=== PATIENT | female | born 1960 | race Caucasian/White ===

== ENCOUNTER → 2017-12-13 08:53 | Outpatient (CLI) | payer OTHER, SELFPAY ==
--- NOTE | 2017-12-13 08:55 | HPBI_ITS ---
MAMMOGRAPHY - BILATERAL SCREENING REASON FOR EXAM: Female, 57 years old. Routine annual screening examination. PERTINENT HISTORY: Non-contributory. TECHNIQUE: Digital bilateral breast delia (3D mammographic acquisition) in the CC and MLO projections. 2-D mediolateral oblique (MLO) and craniocaudad (CC) views of both breasts were obtained. CAD: Full Field Digital Mammography with Computer Added Detection was performed. COMPARISON: Comparison is made with prior study dated January 14, 2014 and April 16, 2012. FINDINGS: Breast Composition: The breasts are heterogeneously dense, which may obscure small masses. There are no dominant masses or suspicious calcifications. No other significant abnormalities are identified. There has been no significant change since the prior study. HPBI/SCREENING MAMM (CAD), BILAT IMPRESSION: Stable bilateral screening mammogram. Yearly follow-up mammogram recommended. (A) ASSESSMENT CATEGORY: BIRADS Category 1: Negative. A letter regarding these results will be sent to the patient by the facility within 30 days. Approximately 10% of breast cancers are not detected by mammography. A normal mammogram should not delay biopsy of a clinically suspicious abnormality. [id number] Electronically Signed: Julio Cesar Sparrow MD at 11:11 EST Tel [phone], Service support ,
--- NOTE | 2017-12-13 08:57 | HPBD_ITS ---
STUDY: DUAL ENERGY X-RAY ABSORPTIOMETRY / DXA REASON FOR EXAM: Female, 57 years old. The patient is postmenopausal. Loss of height. TECHNIQUE: Bone Mineral Density (BMD) measurements of lumbar spine and bilateral hips were obtained. COMPARISON: Comparison is made with prior study dated April 16, 2012. FINDINGS: Lumbar Spine (L1-L4): g/cm2 (1.021) / T-score (-1.3) / Z-score (-0.2) Findings are suggestive of osteopenia with a moderate fracture risk. Left Femur Total: g/cm2 (0.701) / T-score (-2.4) / Z-score (-1.5) Left Femoral Neck: g/cm2 (0.738) / T-score (-2.2) / Z-score (-0.9) Right Femur Total: g/cm2 (0.665) / T-score (-2.7) / Z-score (-1.8) Right Femoral Neck: g/cm2 (0.685) / T-score (-2.5) / Z-score (-1.3) The T-Scores on the most recent prior examination were: Lumbar Spine (L1-L4): There has been worsening of bone density since the previous examination. Left Femur Total: which represents a worsening of 7.5%. Right Femur Total: which represents a worsening of 7.6%. HPBD/Dexa Bone Density Study (HP) IMPRESSION: The patient is considered osteoporotic as outlined below according to World Mark Organization (WHO) criteria with a high fracture risk. There has been worsening of bone density since the previous examination. Reference Information: The T-score is the number of standard deviations above or below the standard which is normal for young adults at their peak bone mineral density. The World Health Organization (WHO) interprets the T-scores as follows: Above -1 Normal bone density Between -1 and -2.5 Osteopenia Equal to / or below -2.5 Osteoporosis As a practical clinical guideline, osteopenia may be graded as follows: Mild -1 through -1.5 Moderate -1.6 through -2.0 Severe -2.1 through -2.4 The Z-score is the number of standard deviations above or below age-matched controls. A Z-score of less than -1.5 would be considered abnormal. References: 1. NIH Osteoporosis and Related Bone Diseases http://www.osteo.org 2. International Society for Clinical Densitometry http://www.iscd.org 3. National Osteoporosis Foundation http://www.nof.org Electronically Signed: Julio Cesar Sparrow MD at 8:44 EST Tel [phone], Service support ,
== END ==
PROVIDERS: Visit Provider Obstetrics & Gynecology
DX: Z12.31 Encounter for screening mammogram for malignant neoplasm of breast (principal); M94.9 Disorder of cartilage, unspecified; M89.9 Disorder of bone, unspecified; Z78.0 Asymptomatic menopausal state
CPT/HCPCS: 77063; 77067; 77080

== ENCOUNTER → 2017-12-20 10:45 | Outpatient (CLI) | payer OTHER, SELFPAY ==
[2017-12-20 13:47] LABS: Calcium,Total 8.8 mg/dL (8.5-10.1)
[2017-12-21 09:47] LABS: Vitamin D,25 Hydroxy 11.7 ng/mL (29.95-100.01)
== END ==
PROVIDERS: Visit Provider Obstetrics & Gynecology
DX: M85.80 Other specified disorders of bone density and structure, unspecified site (principal); M81.0 Age-related osteoporosis without current pathological fracture
CPT/HCPCS: 36415; 82306; 82310

== ENCOUNTER 2018-02-20 08:52 | Day surgery (SDC) | payer OTHER, SELFPAY ==
[2018-02-20] VITALS (7 sets, daily range): BP systolic 98–143; BP diastolic 62–83; PULSE 54–76; RESP 16–18; TEMP 36.1–36.4; O2SAT 97–100; BMI 24.6
--- NOTE | 2018-02-20 | COLBX_PTH ---
PATIENT: PHILL GAR LOC: EN U#:[id number] AGE/SX: 58/F ROOM: RE02/20/[address]: Dr. Ivis Menjivar MD : 1960 BED: DIS: 02/20/2018 SPEC #: [id number] RECD: 02/20/18 12:25 STATUS: DEIRDRE ROSEN #: [id number] SHARON: 02/20/18 00:[address]: Ivis Menjivar DEPT: SURGICAL PATHOLOGY RECD BY: Neymar Farrar ENTERED: 02/20/18 12:59 SP TYPE: COLON BX OTHR DR: No Primary Care Phys Tissues: A - Cecum, NOS B - Ascending colon C - Sigmoid colon biopsy D - Rectum, NOS Procedures: Surgery Specimen Level IV HEADER OPERATION: Colonoscopy PRE-OP DIAGNOSIS: Screening TISSUE SUBMITTED: A. Cecal polyp biopsy, B. Ascending colon polyp biopsy, C. Distal sigmoid polyp biopsy, D. Rectal polyp biopsy MICROSCOPIC DIAGNOSIS A. Cecal polyp, biopsy: Fragments of tubular adenoma. B. Ascending colon polyp, biopsy: Tubular adenoma. C. Distal sigmoid colon polyp, biopsy: Fragments of colonic mucosa with focal hyperplastic change. D. Rectal polyp, biopsy: Tubular adenoma. AM:cecy 02/21/18 MICROSCOPIC DESCRIPTION Slides are reviewed. GROSS DESCRIPTION A - Received in fixative is one container labeled with the patient's name and designated cecal polyp biopsy. The specimen consists of multiple irregular fragments of light galvan soft tissue that in aggregate measure 1.2 x 0.3 x 0.1 cm. The specimen is totally submitted in one cassette. B - Received in fixative is one container labeled with the patient's name and designated ascending colon biopsy. The specimen consists of two irregular fragments of light galvan soft tissue that in aggregate measure 0.5 x 0.2 x 0.1 cm. The specimen is totally submitted in one cassette. C - Received in fixative is one container labeled with the patient's name and designated distal sigmoid polyp biopsy. The specimen consists of one irregular fragment of light galvan soft tissue that measures 0.3 x 0.3 x 0.1 cm. The specimen is totally submitted in one cassette. D - Received in fixative is one container labeled with the patient's name and designated rectal polyp biopsy. The specimen consists of one irregular fragment of light galvan soft tissue that measures 0.3 x 0.2 x 0.1 cm. The specimen is totally submitted in one cassette. / SJ:cecy 02/20/18 TC:5 CPT: 57507 x4
[2018-02-20 09:31] LABS: Bedside Glucose 111 mg/dL (70-110)
--- NOTE | 2018-02-20 13:59 | PCM.OPRPT ---
Report of Operation Date of Procedure: 02/20/18 Pre-Operative Diagnosis: Screening for colon cancer, history of polyps Post-Operative Diagnosis: Cecal, descending, distal sigmoid, rectal polyps and mild sigmoid diverticulosis Surgery/Procedure Performed:: Colonoscopy with biopsy Type of Anesthesia:: MAC Anesthesiologist: Cristobal Pantoja Specimen's removed: 1. Cecal polyp, 2. Descending colon polyp, 3. Distal sigmoid colon polyp, 4. Rectal polyp Estimated Blood Loss (mL): minimal Description of Procedure: Procedure: Colonoscopy After reviewing the risks benefits, the patient was deemed in satisfactory condition to undergo procedure. After obtaining informed consent, the scope was passed under direct visualization. Throughout the procedure, the patient's blood pressure pulse and position saturations were monitored continuously anesthesia. The colonoscope was introduced through the anus and advanced to the cecum, identified by the appendiceal orifice, IC valve and transillumination. The colonoscopy was performed without difficulty. The patient tolerated procedure well. Quality of bowel prep was good. Findings: The perianal and digital rectal exam were normal. All sessile polyps removed with cold forceps biopsies in the following location cecal, ascending colon, distal sigmoid colon, rectal. Mild sigmoid diverticulosis was noted. The colon (entire examined portion) appeared normal. Retroflexed view of the distal rectum and anal verge was normal and showed no anal or rectal abnormalities Impression: 1. Small sessile polyps in the cecum, ascending colon, distal sigmoid colon, rectum. Removed with biopsy. 2. Mild sigmoid diverticulosis 3. The distal rectal and anal verge were normal on retroflexed view. Recommendations: Repeat colonoscopy in 3-5 years for screening purposes, depending on biopsy results - Complications none
== END 2018-02-20 13:00 | disposition home or self-care (01) ==
LOC: EN 08:54 → AC 08:54
PROVIDERS: Visit Provider Surgery
PROC: 0DJD8ZZ Inspection of Lower Intestinal Tract, Via Natural or Artificial Opening Endoscopic (ICD-10-PCS; CPT 45378; principal; 2018-02-20 09:55)
DX: Z12.11 Encounter for screening for malignant neoplasm of colon (principal); D12.0 Benign neoplasm of cecum; D12.2 Benign neoplasm of ascending colon; K63.5 Polyp of colon; D12.8 Benign neoplasm of rectum; K57.30 Diverticulosis of large intestine without perforation or abscess without bleeding; K58.9 Irritable bowel syndrome, unspecified; E11.9 Type 2 diabetes mellitus without complications; I10 Essential (primary) hypertension; E78.00 Pure hypercholesterolemia, unspecified; F32.9 Major depressive disorder, single episode, unspecified; F41.9 Anxiety disorder, unspecified; Z78.0 Asymptomatic menopausal state; Z79.84 Long term (current) use of oral hypoglycemic drugs; Z79.899 Other long term (current) drug therapy; Z86.010 Personal history of colon polyps; Z87.891 Personal history of nicotine dependence
CPT/HCPCS: 45380; 82962; 88305; J7120

== ENCOUNTER 2018-05-15 13:53 | Emergency (ER) | payer OTHER, SELFPAY ==
[2018-05-15 13:54] VITALS: BP 197/79; PULSE 62; RESP 16; TEMP 36.3; O2SAT 100; BMI 21.8
[2018-05-15 14:37] VITALS: BP 165/82; BP 171/84; BP 176/85; PULSE 64; PULSE 65; PULSE 73
[2018-05-15 14:58] LABS: Bacteria 0 SEEN /hpf (None Seen); Mucous, Urine 0 SEEN /hpf (<or=2+); Red Blood Cells-Urine 0 SEEN /hpf (0-5)
[2018-05-15] MEDS: 0.9% Normal Saline 1,000 ML 1000 ML IV (15:04)
[2018-05-15 15:05] LABS: Absolute Lymphocyte Count 1.22 X10^3/ul (0.83-4.51); Absolute Neutrophil Count 3.1 X10^3/uL (2.0-7.7); Basophil# 0.01 X10^3/uL; Basophil% 0.2 % (0-1); Eosinophil# 0.03 X10^3/uL; Eosinophils% 0.7 % (0-5); Hematocrit 43.9 % (37-47); Hemoglobin 14.8 g/dl (12.0-15.0); Lymphocyte # 1.22 X10^3/ul (4.0); Lymphocyte % 26.9 % (19-41); Mean Corp Hgb Conc 33.7 g/gl (32-36); Mean Corpuscular Hgb 29.1 pg (27.0-32.0); Mean Corpuscular Volume 86.2 fL (81-99); Mean Platelet Vol. 10.5 fl (6.2-12.0); Monocyte% 4.4 % (0-10); Neutrophil # 3.08 X10^3/uL (2.7-7.7); Neutrophil % 67.8 % (47-70); POSITIVE COUNT NO; POSITIVE DIFFERENTIAL NO; POSITIVE MORPHOLOGY NO; Platelet Count 190 K/mm3 (150-450); RBC Distribution Width CV 12.3 % (11.6-14.6); RBC Distribution Width SD 39.2 fl (35.1-43.9); Red Blood Count 5.09 M/mm3 (4.2-5.4); White Blood Count 4.5 K/mm3 (4.4-11.0)
[2018-05-15] MEDS: Ondansetron 4 MG/2 ML Vial IV (15:05)
[2018-05-15 15:18] LABS: Anion Gap 9 (5-15); BUN 8 mg/dL (7-18); BUN/Creat Ratio 10.6 RATIO (10-20); Calcium,Total 9.2 mg/dL (8.5-10.1); Chloride 105 mmol/L (98-107); Creatinine, Serum 0.75 mg/dL (0.55-1.02); EST Glomerular Filtration Rate 83 mL/min (>60); Est Glom Filt Rate - Afr Amer 101 mL/min (>60); Estimated Creatinine Clearance 71.78 ml/min; Glucose 128 mg/dL (74-106); Potassium 3.5 mmol/L (3.5-5.1); Sodium Level 139 mmol/L (136-145)
[2018-05-15 15:21] LABS: Color, Urine Yellow (Yellow); Glucose, Dipstick Normal (Normal); Ketone-Dipstick Negative (Negative); Leukocyte Esterase-Dipstick 25 /ul (Negative); Nitrite-Dipstick Negative (Negative); Occult Blood-Urine 10 /ul (Negative); Protein-Dipstick 30 mg/dl (Negative); Urine Bilirubin Dipstick Negative (Negative); Urine Clarity Clear (Clear); Urine Urobilinogen Normal (Normal)
[2018-05-15 15:24] LABS: Squamous Epithelial Cells - UA 0-5 SEEN /hpf (5-10); White Blood Cells 0-5 SEEN /hpf (0-5)
--- NOTE | 2018-05-15 16:05 | ED.VISSUMM ---
- ER Visit Summary Date of Service: 05/15/18 Chief Complaint: [Generalized weakness and nausea] History of Present Illness: The patient is a 58 F [presents to the emergency department complaint of not feeling well. Patient states that today she has been feeling weak and nauseated. Patient states that she was in a parking lot of [place] when she began feeling very sweaty and diaphoretic. Patient checked her blood sugar and it was 140. Patient felt nauseated. She did not have a syncopal episode. Patient denied any chest pain or shortness of breath. Patient gives history of diarrhea for the last for 5 days. Patient gives history of being on amoxicillin for about a week for left ear infection and sinus infection. Patient did feel dizzy when she was having the event today with the diaphoresis.] Physical Examination: [HEENT-PERRLA, EOMI. Cranial nerves II through XII grossly intact. TMs clear. Mucous membranes moist. No adenopathy. Cardiovascular-regular rate and rhythm without murmur or ectopy Lungs-clear to auscultation, chest wall stable without crepitus or subcu emphysema Abdomen-normoactive bowel sounds, soft, nontender, no rebound or rigidity, no peritoneal signs. Extremities-intact ?4, normal range of motion, normal pulses, atraumatic] Test Results: [Orthostatic vital signs were negative.] EKG showed a normal sinus rhythm with no acute ST segment changes. CBC with differential obtained was normal. Chemistries were normal. Troponin was less than 0.015. Urinalysis was normal. Emergency Department Course and Treatment: [Patient received Zofran and a liter normal same fluid bolus. She continued complaints of nausea therefore was given Phenergan 12.5 mg IV.] Treatment Plan: [This point I suspect patient may have had a vasovagal episode while in the car today. Patient advised use Imodium for her diarrhea. We initially ordered stool sample for enteric pathogens, C. difficile, and ova and parasites however patient unable to produce a sample. Patient will be given a prescription to bring in a stool sample to further evaluate.] Disposition: [Discharged home in stable condition] Impression: [Diarrhea Nausea Vasovagal presyncope] This note was generated with [employer] dictation software. It may contain incorrect words, spelling, and punctuation that were not noted in review of the chart prior to signing ED Disposition - Plan for ED Patient: Chief Complaint: General Illness Referrals: Omar Sierra MD [Primary Care Provider] -
--- NOTE | 2018-05-15 16:08 | EKG12_ITS ---
Test Reason : GEN ILLNESS Blood Pressure : / mmHG Vent. Rate : 058 BPM Atrial Rate : 058 BPM P-R Int : 144 ms QRS Dur : 086 ms QT Int : 448 ms P-R-T Axes : 060 001 073 degrees QTc Int : 439 ms Sinus bradycardia Low voltage QRS (limb leads) Poor R wave progression Nonspecific ST and T wave abnormality Confirmed by ESTRELLITA RODRIGUEZ, JOANNE ([id number]), field map editor RAI BUENO ([id number]) on 05/20/2018 1:43:19 PM Referred By: SUSHMA Confirmed By:JOANNE HARO MD
--- NOTE | 2018-05-15 16:11 | ED.DEP ---
ED Disposition - Plan for ED Patient: Chief Complaint: General Illness Instructions: ED Gastroenteritis Report Pend, ED Near Syncope Vasovagal Prescriptions: Ondansetron [Zofran Odt] 4 mg PO Q8H PRN PRN #10 tab PRN Reason: Nausea Referrals: Oamr Sierra MD [Primary Care Provider] - 3-5 Days
[2018-05-15] MEDS: proMETHazine 25 MG/ML Syringe 12.5 MG IV (16:22)
[2018-05-15 16:24] VITALS: BP 152/79; PULSE 64; RESP 16; O2SAT 97
[2018-05-15 16:26] VITALS: BP 152/79; PULSE 68; RESP 16; O2SAT 97
== END 2018-05-15 16:59 | disposition home or self-care (01) ==
LOC: ED 14:34
PROVIDERS: Emergency Provider Emergency Medicine; Family Provider Family Medicine; PCP Family Medicine
DX: R55 Syncope and collapse (principal); R19.7 Diarrhea, unspecified; R11.0 Nausea; I49.1 Atrial premature depolarization; E11.9 Type 2 diabetes mellitus without complications; Z79.84 Long term (current) use of oral hypoglycemic drugs; Z79.899 Other long term (current) drug therapy
CPT/HCPCS: 80048; 81001; 84484; 85025; 93005; 96361; 96374; 96375; 99285; J7030; A4216; J2405

== ENCOUNTER → 2018-08-19 12:26 | Outpatient (CLI) | payer OTHER, SELFPAY ==
[2018-08-19 14:04] LABS: Erythrocyte Sedimentation Rate 8 mm/hr (0-30)
[2018-08-19 14:12] LABS: Absolute Neutrophil Count 3.7 X10^3/uL (2.0-7.7); Basophil# 0.03 X10^3/uL; Basophil% 0.5 % (0-1); Eosinophil# 0.07 X10^3/uL; Eosinophils% 1.2 % (0-5); Hematocrit 42.1 % (37-47); Hemoglobin 14.1 g/dl (12.0-15.0); Lymphocyte % 29.5 % (19-41); Mean Corp Hgb Conc 33.5 g/gl (32-36); Mean Corpuscular Volume 86.6 fL (81-99); Mean Platelet Vol. 10.7 fl (6.2-12.0); Monocyte# 0.31 X10^3/uL; Monocyte% 5.4 % (0-10); Neutrophil # 3.65 X10^3/uL (2.7-7.7); Neutrophil % 63.2 % (47-70); POSITIVE COUNT NO; POSITIVE DIFFERENTIAL NO; POSITIVE MORPHOLOGY NO; Platelet Count 201 K/mm3 (150-450); RBC Distribution Width CV 12.6 % (11.6-14.6); RBC Distribution Width SD 39.5 fl (35.1-43.9); Red Blood Count 4.86 M/mm3 (4.2-5.4); White Blood Count 5.8 K/mm3 (4.4-11.0)
[2018-08-19 14:22] LABS: ALB/GLOB Ratio 1.2 RATIO (0.9-2.4); AST(SGOT) 18 U/L (15-37); Alanine Aminotransfer ALT/SGPT 30 U/L (13-56); Alkaline Phosphatase 73 U/L (45-117); Anion Gap 7 (5-15); BUN 16 mg/dL (7-18); BUN/Creat Ratio 24.3 RATIO (10-20); CRP < 2.90 mg/L (0.0-3.0); Calcium,Total 8.3 mg/dL (8.5-10.1); Chloride 108 mmol/L (98-107); Creatinine, Serum 0.66 mg/dL (0.55-1.02); EST Glomerular Filtration Rate 97 mL/min (>60); Est Glom Filt Rate - Afr Amer 118 mL/min (>60); Globulin 3.4 g/dL (2.2-4.2); Glucose 88 mg/dL (74-106); Potassium 3.7 mmol/L (3.5-5.1); Protein, Total 7.4 g/dL (6.4-8.2); Sodium Level 139 mmol/L (136-145); Thyroid Stim Hormone (TSH) 2.02 uIU/mL (0.358-3.74)
[2018-08-19 14:40] LABS: Hemoglobin A1c 6.3 % (4.2-6.3)
== END ==
PROVIDERS: Family Provider Family Medicine; PCP Family Medicine; Visit Provider Family Medicine
DX: E11.9 Type 2 diabetes mellitus without complications (principal); I10 Essential (primary) hypertension; R51 Headache
CPT/HCPCS: 36415; 80053; 83036; 84443; 85025; 85652; 86140

== ENCOUNTER → 2019-02-13 15:12 | Outpatient (CLI) | payer OTHER, SELFPAY ==
--- NOTE | 2019-02-13 15:20 | RAD_ITS ---
STUDY: X-RAY CHEST REASON FOR EXAM: Female, 59 years old. Acute thoracic back pain. TECHNIQUE: PA and lateral views of the chest. COMPARISON: Chest CT and radiograph dated April 07, 2016. FINDINGS: There is no new focal consolidation. There is a stable granuloma within the left mid lung. Normal size heart. Normal mediastinum and liz. Normal visualized pulmonary arteries. Normal visualized aortic arch and descending thoracic aorta. There are diffuse degenerative changes of the visualized thoracic spine. Normal visualized ribs, clavicles, and shoulders. There is no demonstrated abnormality of the visualized soft tissue structures of the upper abdomen. RAD/Chest PA and Lateral IMPRESSION: Degenerative changes, as described above. No demonstrated acute cardiopulmonary process. Electronically Signed: Mariel Cowan MD at 16:03 EDT Tel , Service support ,
[2019-02-13 17:52] LABS: Absolute Lymphocyte Count 1.68 X10^3/ul (0.83-4.51); Absolute Neutrophil Count 3.4 X10^3/uL (2.0-7.7); Basophil# 0.02 X10^3/uL; Basophil% 0.4 % (0-1); Eosinophil# 0.06 X10^3/uL; Eosinophils% 1.1 % (0-5); Hematocrit 43.2 % (37-47); Hemoglobin 14.5 g/dl (12.0-15.0); Lymphocyte # 1.68 X10^3/ul (4.0); Lymphocyte % 31.2 % (19-41); Mean Corp Hgb Conc 33.6 g/gl (32-36); Mean Corpuscular Hgb 28.8 pg (27.0-32.0); Mean Corpuscular Volume 85.9 fL (81-99); Mean Platelet Vol. 10.4 fl (6.2-12.0); Monocyte# 0.28 X10^3/uL; Monocyte% 5.2 % (0-10); Neutrophil # 3.35 X10^3/uL (2.7-7.7); Neutrophil % 62.1 % (47-70); Platelet Count 193 K/mm3 (150-450); RBC Distribution Width CV 12.6 % (11.6-14.6); RBC Distribution Width SD 39.8 fl (35.1-43.9); Red Blood Count 5.03 M/mm3 (4.2-5.4); White Blood Count 5.4 K/mm3 (4.4-11.0)
[2019-02-13 18:02] LABS: POSITIVE COUNT NO; POSITIVE DIFFERENTIAL NO; POSITIVE MORPHOLOGY NO
[2019-02-13 18:22] LABS: Erythrocyte Sedimentation Rate 5 mm/hr (0-30)
[2019-02-13 18:50] LABS: ALB/GLOB Ratio 1.3 RATIO (0.9-2.4); AST(SGOT) 28 U/L (15-37); Alanine Aminotransfer ALT/SGPT 41 U/L (13-56); Albumin, Serum 4.1 g/dL (3.2-5.0); Alkaline Phosphatase 86 U/L (45-117); Anion Gap 7 (5-15); BUN 15 mg/dL (7-18); BUN/Creat Ratio 22.5 RATIO (10-20); CRP < 2.90 mg/L (0.0-3.0); Calcium,Total 9.1 mg/dL (8.5-10.1); Chloride 107 mmol/L (98-107); Creatinine, Serum 0.67 mg/dL (0.55-1.02); EST Glomerular Filtration Rate 96 mL/min (>60); Est Glom Filt Rate - Afr Amer 116 mL/min (>60); Globulin 3.2 g/dL (2.2-4.2); Glucose 115 mg/dL (74-106); Potassium 3.5 mmol/L (3.5-5.1); Protein, Total 7.3 g/dL (6.4-8.2); Sodium Level 140 mmol/L (136-145); Thyroid Stim Hormone (TSH) 1.49 uIU/mL (0.358-3.74)
== END ==
PROVIDERS: Family Provider Family Medicine; PCP Family Medicine; Referring Provider Family Medicine; Visit Provider Family Medicine
DX: M54.6 Pain in thoracic spine (principal); I10 Essential (primary) hypertension; R51 Headache
CPT/HCPCS: 36415; 71046; 80053; 84443; 85025; 85652; 86140

== ENCOUNTER → 2019-06-05 14:31 | Outpatient (CLI) | payer OTHER, SELFPAY | PROVIDERS: Family Provider Family Medicine; PCP Family Medicine; Referring Provider Family Medicine; Visit Provider Family Medicine | DX: N39.0 Urinary tract infection, site not specified (principal) | CPT/HCPCS: 87086; 87088; 87186 ==

== ENCOUNTER → 2019-08-04 09:31 | Outpatient (CLI) | payer OTHER, SELFPAY ==
[2019-08-04 14:34] LABS: Creatinine, Serum 0.62 mg/dL (0.55-1.02); EST Glomerular Filtration Rate 104 mL/min (>60); Est Glom Filt Rate - Afr Amer 125 mL/min (>60); Potassium 4.2 mmol/L (3.5-5.1); Sodium Level 139 mmol/L (136-145); Thyroid Stim Hormone (TSH) 2.22 uIU/mL (0.358-3.74)
== END ==
PROVIDERS: Family Provider Family Medicine; PCP Family Medicine; Referring Provider Family Medicine; Visit Provider Family Medicine
DX: R00.2 Palpitations (principal); I10 Essential (primary) hypertension; E88.81 Metabolic syndrome and other insulin resistance
CPT/HCPCS: 36415; 82565; 83036; 83735; 84132; 84295; 84443

== ENCOUNTER → 2019-10-24 09:38 | Outpatient (CLI) | payer OTHER, SELFPAY ==
[2019-10-24 12:44] LABS: Cholesterol 223 mg/dL (200); High Density Lipoprotein 44 mg/dL; Triglycerides 168 mg/dL; Very Low Density Lipoprotein 34 mg/dL (5-40)
== END ==
PROVIDERS: Family Provider Family Medicine; PCP Family Medicine; Referring Provider Family Medicine; Visit Provider Family Medicine
DX: Z00.00 Encounter for general adult medical examination without abnormal findings (principal)
CPT/HCPCS: 36415; 80061

== ENCOUNTER → 2019-11-05 13:10 | Outpatient (CLI) | payer OTHER, SELFPAY ==
--- NOTE | 2019-11-05 13:11 | BI_ITS ---
MAMMOGRAPHY - BILATERAL SCREENING REASON FOR EXAM: Female, 59 years old. Routine annual screening examination. PERTINENT HISTORY: Non-contributory. TECHNIQUE: Digital bilateral breast tiny (3D mammographic acquisition) in the CC and MLO projections. 2-D mediolateral oblique (MLO) and craniocaudad (CC) views of both breasts were obtained. CAD: Full Field Digital Mammography with Computer Added Detection was performed. COMPARISON: Comparison is made with prior study dated December 13, 2017 and January 14, 2014. FINDINGS: Breast Composition: The breasts are heterogeneously dense, which may obscure small masses. There are no dominant masses or suspicious calcifications. Stable benign-appearing bilateral axillary No other significant abnormalities are identified. There has been no significant change since the prior study. BI/SCREEN MAMM (CAD) W/TINY BILAT IMPRESSION: Stable bilateral screening mammogram. Yearly follow-up mammogram recommended. (A) ASSESSMENT CATEGORY: BIRADS Category 2: Benign. A letter regarding these results will be sent to the patient by the facility within 30 days. Approximately 10% of breast cancers are not detected by mammography. A normal mammogram should not delay biopsy of a clinically suspicious abnormality. [id number] Electronically Signed: Julio Cesar Sparrow, at 14:31 EST , Service support ,
== END ==
PROVIDERS: Family Provider Family Medicine; PCP Family Medicine; Referring Provider Family Medicine; Visit Provider Family Medicine
DX: Z12.31 Encounter for screening mammogram for malignant neoplasm of breast (principal); Z00.00 Encounter for general adult medical examination without abnormal findings
CPT/HCPCS: 77063; 77067

== ENCOUNTER → 2020-04-20 10:51 | Outpatient (CLI) | payer OTHER, SELFPAY ==
[2020-04-20 12:44] LABS: Absolute Lymphocyte Count 1.03 X10^3/uL (0.83-4.51); Absolute Neutrophil Count 2.5 X10^3/uL (2.0-7.7); Basophil# 0.03 X10^3/uL; Basophil% 0.8 % (0-1); Eosinophil# 0.09 X10^3/uL; Eosinophils% 2.3 % (0-5); Hematocrit 45.6 % (37-47); Hemoglobin 14.8 g/dL (12.0-15.0); Lymphocyte # 1.03 X10^3/ul (4.0); Lymphocyte % 26.1 % (19-41); Mean Corp Hgb Conc 32.5 g/dL (32-36); Mean Corpuscular Hgb 29.5 pg (27.0-32.0); Mean Platelet Vol. 10.5 fl (6.2-12.0); Monocyte# 0.28 X10^3/uL; Monocyte% 7.1 % (0-10); NRBC Flagged by Analyzer 0 % (0-5); Neutrophil # 2.51 X10^3/uL (2.7-7.7); Neutrophil % 63.7 % (47-70); Platelet Count 177 K/mm3 (150-450); RBC Distribution Width CV 12.6 % (11.6-14.6); RBC Distribution Width SD 41.1 fl (35.1-43.9); Red Blood Count 5.01 M/mm3 (4.2-5.4); White Blood Count 3.9 K/mm3 (4.4-11.0)
[2020-04-20 13:09] LABS: ALB/GLOB Ratio 1.2 RATIO (0.9-2.4); AST(SGOT) 21 U/L (15-37); Alanine Aminotransfer ALT/SGPT 30 U/L (13-56); Albumin, Serum 3.8 g/dL (3.2-5.0); Alkaline Phosphatase 89 U/L (45-117); Anion Gap 8 (5-15); BUN 9 mg/dL (7-18); BUN/Creat Ratio 12.2 RATIO (10-20); Calcium,Total 8.6 mg/dL (8.5-10.1); Chloride 105 mmol/L (98-107); Creatinine, Serum 0.74 mg/dL (0.55-1.02); EST Glomerular Filtration Rate 85 mL/min (>60); Est Glom Filt Rate - Afr Amer 103 mL/min (>60); Globulin 3.2 g/dL (2.2-4.2); Glucose 106 mg/dL (74-106); Potassium 3.5 mmol/L (3.5-5.1); Sodium Level 140 mmol/L (136-145); Thyroid Stim Hormone (TSH) 1.43 uIU/mL (0.358-3.74)
[2020-04-20 14:35] LABS: Hemoglobin A1c 5.8 % (3.8-5.6)
== END ==
PROVIDERS: PCP Family Medicine; Referring Provider Family Medicine; Visit Provider Family Medicine
DX: E88.81 Metabolic syndrome and other insulin resistance (principal); G25.81 Restless legs syndrome
CPT/HCPCS: 36415; 80053; 83036; 84443; 85025

== ENCOUNTER → 2020-12-22 10:11 | Outpatient (CLI) | payer OTHER, SELFPAY ==
--- NOTE | 2020-12-22 10:13 | BI_ITS ---
MAMMOGRAPHY - BILATERAL SCREENING REASON FOR EXAM: Female, 60 years old. Routine annual screening examination. PERTINENT HISTORY: Non-contributory. TECHNIQUE: Digital bilateral breast tiny (3D mammographic acquisition) in the CC and MLO projections. 2-D mediolateral oblique (MLO) and craniocaudad (CC) views of both breasts were obtained. CAD: Full Field Digital Mammography with Computer Added Detection was performed. COMPARISON: Comparison is made with prior study dated 05/05/2020 and 12/13/2017. FINDINGS: Breast Composition: The breasts are heterogeneously dense, which may obscure small masses. There are no dominant masses or suspicious calcifications. Stable small benign appearing bilateral axillary lymph nodes. No other significant abnormalities are identified. There has been no significant change since the prior study. BI/SCRN MAMM (CAD)W/TINY BILAT IMPRESSION: Stable bilateral screening mammogram. Yearly follow-up mammogram recommended. (A) ASSESSMENT CATEGORY: BIRADS Category 2: Benign. A letter regarding these results will be sent to the patient by the facility within 30 days. Approximately 10% of breast cancers are not detected by mammography. A normal mammogram should not delay biopsy of a clinically suspicious abnormality. [id number] Electronically Signed: Julio Cesar Sparrow MD at 11:14 EDT , Service support ,
== END ==
PROVIDERS: PCP Family Medicine; Referring Provider Family Medicine; Visit Provider Family Medicine
DX: Z12.31 Encounter for screening mammogram for malignant neoplasm of breast (principal)
CPT/HCPCS: 77063; 77067

== ENCOUNTER 2020-12-23 16:08 | Outpatient (RCR) | payer OTHER, SELFPAY ==
[2020-12-23] MEDS: COVID-19 VACC, MRNA(PFIZER)/PF 30 MCG/0.3 ML SYRINGE IM (15:51)
[2021-01-13] MEDS: COVID-19 VACC, MRNA(PFIZER)/PF 30 MCG/0.3 ML SYRINGE IM (15:26)
== END 2021-03-22 23:59 ==
LOC: IMMUN 16:08
PROVIDERS: PCP Family Medicine; Referring Provider Family Medicine; Visit Provider Family Medicine
DX: Z23 Encounter for immunization (principal)
CPT/HCPCS: 0001A; 0002A; 91300

== ENCOUNTER 2021-02-23 06:56 | Day surgery (SDC) | payer OTHER, SELFPAY ==
[2021-02-23] VITALS (7 sets, daily range): BP systolic 130–148; BP diastolic 78–92; PULSE 56–80; RESP 16; TEMP 36.3–36.4; O2SAT 97–100; BMI 22.9
[2021-02-23] MEDS: Lactated Ringers 1,000 ML 100 ML IV (07:36)
[2021-02-23 07:41] LABS: Bedside Glucose 101 mg/dL (70-110)
--- NOTE | 2021-02-23 07:50 | H&P.OPEN ---
[facility] - General General Date of Admission: 02/23/21 [facility] Narrative PHILL GAR, is a 61 F who presents for screening colonoscopy due to history of colon polyps. Patient's last colonoscopy was in February 2018 she had 3 tubular adenomas and hyperplastic polyp at that time. Patient denies any immediate family history of colon cancer. Patient states she does have IBS and has loose stools daily denies any blood denies any chronic abdominal pain/nausea/vomiting/reflux. [facility] Medical History (Updated 02/23/21 @ 07:[address] Ivis Menjivar MD) Anxiety Depression Diabetes Former smoker Head concussion History of diverticulosis Hx of exercise stress test Hx of irritable bowel syndrome Hypertension Injury of head and neck Kidney stones Leg cramps Post-menopausal Rash Restless legs Wears contact lenses Wears glasses Home Medications fluoxetine 30 - 40 mg PO DAILY 04/07/16 [History Last Taken 04/07/16] lisinopril 10 mg PO DAILY 04/07/16 [History Last Taken 02/20/18 06:00 1] cholecalciferol (vitamin D3) 4,000 unit PO DAILY 02/13/18 [History Last Taken Unknown] ondansetron 4 mg PO Q8H PRN PRN #10 tab 05/15/18 [Rx Last Taken Unknown] doxycycline hyclate 100 mg PO BID 02/18/21 [History Last Taken Unknown] empagliflozin [Jardiance] 25 mg PO DAILY 02/18/21 [History Last Taken Unknown] gabapentin 600 mg PO QHS 02/18/21 [History Last Taken Unknown] prednisone 40 mg PO DAILY 02/18/21 [History Last Taken Unknown] Allergy/AdvReac Type Severity Reaction Status Date / Time sulfamethoxazole Allergy Hives Verified 02/18/21 14:05 [From Bactrim] trimethoprim [From Bactrim] Allergy Hives Verified 02/18/21 14:05 metoclopramide [From Reglan] AdvReac restless Verified 02/18/21 14:05 Surgical History (Updated 02/18/21 @ 14:13 by Marianna Kiran) History of wisdom tooth extraction Hx laparoscopic cholecystectomy Hx of colonoscopy (~02/20/18) Hx of foot surgery Hx of hysterectomy Hx of oophorectomy Hx of oophorectomy Hx of palate surgery Hx of sinus surgery Hx of tonsillectomy Social History Smoking Status: Former smoker Past Medical/Surgical History Planned Operation Planned Operative Procedure/s: COLONOSCOPY S.O.S: No Previous Hospitalizations/Surgeries HX Hospitalizations: No HX of Surgeries: sinus surgery tonsillectomy wisdom teeth gallbladder left foot surgery palate expanded hysterectomy ovaries and tubes removed colonoscopy hospitalized 2016 chest pain Any Problems With Anesthesia: Yes (X1 EPISODE BLOOD PRESSURE DROPPED) You/Your Family Experience Fever (Hyperthermia) With Anes: No Cholinesterase deficiency: No Cardiovascular Hx Chest Pain within Last 2 months: No Hx of Irregular Heartbeat and/or Afib: No (mvp) Hx Heart Attack: No Hx Congestive Heart Failure: No Hx Rheumatic Fever: No Hx Hypertension: Yes (CONTROLLED ON MED) Hx Internal Defibrillator: No Hx Pacemaker: No Hx Cardiac Catheterization: No Hx Cardiac Surgery/Stents/Etc.: No Hx Stress Test: Yes (19 yrs ago,echo 2005) Hx Pain in Legs when Walking/Leg Cramps: No Respiratory Chronic Cough: No HX of Shortness of Breath: Yes (sob with 2 flights of stairs) Hoarseness: No Hx Chronic Obstructive Pulmonary Disease (COPD): No Hx Asthma: No Hx Emphysema: No Hx Sleep Apnea: No CPAP: No BIPAP: No Hx Respiratory Tract Infection/Cold (presently): No Do You Snore Loudly (louder than talking or can be heard): Yes Do You Often Feel Tired/ Fatigued/ Sleepy Dring Daytime?: No Has Anyone Observed You Stop Breathing During Sleep?: No Result (for STOP score): Positive Hx Smoking: Yes (quit at age 18 and only smoked for 4 yrs) Smoking Status: Former smoker Gastrointestinal Hx Gastroesophageal Reflux: No (occ heartburn) Hx Gastrointestinal Disorders: Yes (ibs/hx of bowel obstruction) Hx Gastrointestinal Bleed: No Hx Ulcer: No Hx Hiatal Hernia: No Difficulty Chewing/Swallowing: No Special diet followed at home: No Hx Unplanned Weight Loss of 20#: No HX Unplanned Weight Gain of 20#: No Neurological Hx Seizures: No HX Syncope/Blackout Spells/Unconsciousness: Yes (hx of vertigo) Hx Transient Ischemic Attacks (TIA): No Hx Multiple Sclerosis: No Hx Parkinson's Disease: No Hx Head/Neck Injury: Yes (herniated disc cervical/numbness to left arm prn/limited rom) Hx Headaches: No Hx Back Injury/Pain: Yes (lumbar herniated disc) Recent Onset of Speech Difficulty: No Restless Legs: No Does patient have nerve stimulator: No Blood Disorder Hx Leukemia: No Bleeding Tendencies: No Hx Deep Vein Thrombosis: No Hx High Cholesterol: Yes (no med) Blood Transmitted Disease: No Hx Hepatitis: No Hx Cirrhosis: No Hx Anemia: No Hx Blood Disorders: No Reproduction Is Patient Lactating: No Hx Hysterectomy: Yes Hx Tubal Ligation: No Are You Post Menopause: Yes Genitourinary Hx Renal Disease: No Hx Dialysis: No Musculoskeletal Hx Arthritis: Yes (oa) Hx Rheumatoid Arthritis: No Hx Gout: No Recent Onset of an Orthopedic Problem: No Endocrine Hx Diabetes: Yes (on med) Insulin: No Thyroid Disease: No Hx Steroid Therapy: No Psycho/Social Hx Substance Use: No Hx Alcohol Use: Yes (rarely) Hx Anxiety: Yes (on med) Hx Depression: Yes (on med) Mental Illness: No Hx Dementia: No Miscellaneous Hx Cancer: No Recent Exposure to Contagious Disease: No Hx of C-Diff: No Any Loose Teeth: No Allergies sulfamethoxazole [From Bactrim] Allergy (Verified 02/18/21 14:05) Hives trimethoprim [From Bactrim] Allergy (Verified 02/18/21 14:05) Hives metoclopramide [From Reglan] Adverse Reaction (Verified 02/18/21 14:05) restless Maternal: Diabetes Paternal: Heart Disease (Father w/ CAD/SD, notes first at age 36, several per her history noted. Also concurrent COPD history w/ tobacco use.) Discharge Is Pt Admitted From a [facility], or a [facility]: No After D/C, Where Do you Plan to Go: Return Home From the [facility] History Number of Risk Factors: 5 Vital Signs Vital Signs Vital Signs: 02/23/21 07:27 Temperature 97.4 F L Temperature Source Temporal Pulse Rate 80 Respiratory Rate 16 Respiratory Pattern Normal Blood Pressure 148/86 H Blood Pressure Mean 106 Blood Pressure Source Monitor Blood Pressure Position Semi-Fowlers Blood Pressure Location Right Arm Pulse Ox 97 Oxygen Delivery Method Room Air Physical Exam Const alert, oriented x3 and no apparent distress HEENT normocephalic and head/scalp atraumatic Resp normal respiratory effort Cardio regular rate GI soft to palpation, non-tender and non-distended Palpation: Negative for guarding Extremity no clubbing, cyanosis or edema Neuro CN's II-XII intact bilaterally Psych mental status grossly normal Assessment & Plan Assessment/Plan (1) Hx of colonic polyp: Procedure Criteria Procedure Type: Elective COVID Risk Discussion: The surgeon/proceduralist and patient have discussed in detail the risk of exposure to and/or potential harm posed by the COVID-19 virus with having a surgery/procedure at this time versus the risk of delaying the surgery/procedure. It is not possible to know either the risk of delaying the surgery or procedure or chance of getting an infection with perfect accuracy, but a joint decision was made between the patient and the surgeon/proceduralist to proceed at this time with the scheduled surgery/procedure as indicated on the consent form. Surgery Risks - Colonoscopy Risks Include but are not Limited To: Risks include but are not limited to: Bleeding, perforation requiring further surgery, inability to complete colonoscopy requiring barium enema. Patient no further question this time
--- NOTE | 2021-02-23 08:00 | COLBX_PTH ---
PATIENT: PHILL GAR LOC: EN U#:[id number] AGE/SX: 61/F ROOM: RE02/23/[address]: Dr. Ivis Menjivar MD : 1960 BED: DIS: 02/23/2021 SPEC #: [id number] RECD: 02/23/21 10:35 STATUS: DEIRDRE REMaryann #: [id number] SHARON: 02/23/21 08:[address]: Ivis Menjivar DEPT: SURGICAL PATHOLOGY RECD BY: Elizabeth Schulz ENTERED: 02/23/21 11:41 SP TYPE: COLON BX OTHR DR: Dr. Omar Sierra MD Tissues: A - Sigmoid colon biopsy B - Rectum, NOS Procedures: Surgery Specimen Level IV HEADER OPERATION: Colonoscopy ? open access (MAC) PRE-OP DIAGNOSIS: History of colonic polyps and screening TISSUE SUBMITTED: A ? Sigmoid polyp, B ? Rectal polyp MICROSCOPIC DIAGNOSIS A. Sigmoid polyp, biopsy: Fragments of colonic mucosa, no pathologic diagnosis. See comment. B. Rectal polyp, biopsy: Fragments of tubular adenoma. MARIA GUADALUPE:cecy 02/24/2021 COMMENT A. Hyperplastic or adenomatous changes are not seen. MICROSCOPIC DESCRIPTION Slides are reviewed. GROSS DESCRIPTION A - Received in fixative is one container labeled with the patient's name and designated sigmoid polyp. The specimen consists of multiple irregular fragments of light galvan soft tissue that in aggregate measure 0.7 x 0.5 x 0.1 cm. The specimen is totally submitted in one cassette. B - Received in fixative is one container labeled with the patient's name and designated rectal polyp. The specimen consists of two irregular fragments of light galvan soft tissue that in aggregate measure 0.5 x 0.3 x 0.1 cm. The specimen is totally submitted in one cassette. / MARIA GUADALUPE:cecy 02/23/21 TC:1 CPT: 35290 x2
--- NOTE | 2021-02-23 08:37 | OP.COLON_ITS ---
Patient Name: Leticia West Procedure Date: 02/23/2021 7:42 AM Date of : 1960 Age: 61 Procedure: Colonoscopy Indications: Surveillance: Personal history of adenomatous polyps on last colonoscopy 3 years ago Providers: Ivis Menjivar MD Medicines: Monitored Anesthesia Care Patient Profile: This is a 61 year old female. Last Colonoscopy: February 2018. Complications: No immediate complications. Procedure: Pre-Anesthesia Assessment: - Prior to the procedure, a History and Physical was performed, and patient medications and allergies were reviewed. The patient's tolerance of previous anesthesia was also reviewed. The risks and benefits of the procedure and the sedation options and risks were discussed with the patient. All questions were answered, and informed consent was obtained. Prior Anticoagulants: The patient has taken no previous anticoagulant or antiplatelet agents. ASA Grade Assessment: Per anesthesia. After reviewing the risks and benefits, the patient was deemed in satisfactory condition to undergo the procedure. After I obtained informed consent, the scope was passed under direct vision. Throughout the procedure, the patient's blood pressure, pulse, and oxygen saturations were monitored continuously. The colonoscope was introduced through the anus and advanced to the cecum, identified by the appendiceal orifice, ileocecal valve and palpation. The colonoscopy was performed without difficulty. The patient tolerated the procedure well. The quality of the bowel preparation was good. Scope In: 7:57:44 AM Scope Withdrawal Time 0 hours 16 minutes 38 seconds Scope Out: 8:26:54 AM Total Procedure Duration Time 0 hours 29 minutes 10 seconds Findings: Hemorrhoids were found on perianal exam. Internal hemorrhoids were found. The hemorrhoids were Grade I (internal hemorrhoids that do not prolapse). A few small-mouthed diverticula were found in the sigmoid colon. Two sessile polyps were found in the rectum and sigmoid colon. The polyps were less than 5 mm in size. These polyps were removed with a cold biopsy forceps. Resection and retrieval were complete. The exam was otherwise without abnormality. Impression: - Hemorrhoids found on perianal exam. - Internal hemorrhoids. - Diverticulosis in the sigmoid colon. - Two less than 5 mm polyps in the rectum and in the sigmoid colon, removed with a cold biopsy forceps. Resected and retrieved. - The examination was otherwise normal. Recommendation: - Discharge patient to home. - High fiber diet. - Continue present medications. - Await pathology results. - Repeat colonoscopy in 5 years for surveillance based on pathology results. Procedure Code(s): --- Professional --- 80892, PT, Colonoscopy, flexible; with biopsy, single or multiple Diagnosis Code(s): --- Professional --- Z86.010, Personal history of colonic polyps K64.0, First degree hemorrhoids K62.1, Rectal polyp D12.5, Benign neoplasm of sigmoid colon K57.30, Diverticulosis of large intestine without perforation or abscess without bleeding CPT copyright 2017 [employer]. All rights reserved. The codes documented in this report are preliminary and upon him coder review may be revised to meet current compliance requirements. MD Ivis Ragsdale MD 02/23/2021 8:36:44 AM This report has been signed electronically. Number of Addenda: 0 Note Initiated On: 02/23/2021 7:42 AM
--- NOTE | 2021-02-23 08:37 | OP.CCLET_ITS ---
02/23/2021 Omar Sierra [address] [facility] [address] [place] [address] Re : Colonoscopy procedure for Leticia Pitcher Dear Dr. Sierra This procedure was performed on Tuesday, February 23, 2021. My impressions and recommendations are as follows: Impressions : - Hemorrhoids found on perianal exam. - Internal hemorrhoids. - Diverticulosis in the sigmoid colon. - Two less than 5 mm polyps in the rectum and in the sigmoid colon, removed with a cold biopsy forceps. Resected and retrieved. - The examination was otherwise normal. Recommendations : - Discharge patient to home. - High fiber diet. - Continue present medications. - Await pathology results. - Repeat colonoscopy in 5 years for surveillance based on pathology results. My findings are described in the full procedure note, which is enclosed. If I can be of further assistance, please feel free to contact me at Doctor phone number(s): , Work: . Sincerely, MD Ivis Ragsdale MD 02/23/2021 8:36:44 AM This report has been signed electronically.
== END 2021-02-23 09:21 ==
LOC: EN 06:57 → AC 06:58
PROVIDERS: PCP Family Medicine; Referring Provider Family Medicine; Visit Provider Surgery
PROC: 0DJD8ZZ Inspection of Lower Intestinal Tract, Via Natural or Artificial Opening Endoscopic (ICD-10-PCS; CPT 45378; principal; 2021-02-23 07:55)
DX: Z12.11 Encounter for screening for malignant neoplasm of colon (principal); D12.8 Benign neoplasm of rectum; D12.5 Benign neoplasm of sigmoid colon; K57.30 Diverticulosis of large intestine without perforation or abscess without bleeding; K58.9 Irritable bowel syndrome, unspecified; K64.0 First degree hemorrhoids; E11.9 Type 2 diabetes mellitus without complications; I10 Essential (primary) hypertension; G25.81 Restless legs syndrome; F32.9 Major depressive disorder, single episode, unspecified; F41.9 Anxiety disorder, unspecified; Z79.52 Long term (current) use of systemic steroids; Z79.899 Other long term (current) drug therapy; Z78.0 Asymptomatic menopausal state; Z86.010 Personal history of colon polyps; Z87.19 Personal history of other diseases of the digestive system; Z87.891 Personal history of nicotine dependence; Z90.722 Acquired absence of ovaries, bilateral
CPT/HCPCS: 45380; 82962; 88305; J7120; J2405

== ENCOUNTER → 2021-04-19 15:58 | Outpatient (CLI) | payer OTHER, SELFPAY ==
[2021-02-23 07:27] VITALS: BMI 22.9
--- NOTE | 2021-04-19 15:59 | RAD_ITS ---
STUDY: X-RAY - PELVIS AND RIGHT HIP REASON FOR EXAM: Female, 61 years old. Hip pain s/p steroid use TECHNIQUE: 3 views of the pelvis and hip. COMPARISON: None. FINDINGS: There is a non-specific bowel gas pattern. There are multiple calcified phleboliths. Normal bilateral iliac wings, sacroiliac joints and visualized sacrum. Normal bilateral superior and inferior pubic rami. Normal pubic symphysis. Normal bilateral ischial tuberosities. Normal visualized femoral head. Normal acetabulum. There is mild articular joint space narrowing of the hip. RAD/HIP, UNI W/ Pelvis 2-3 Views IMPRESSION: Mild degree of degenerative changes of the right hip joint. Electronically Signed: Julio Cesar Sparrow MD at 13:33 EDT , Service support ,
== END ==
PROVIDERS: PCP Family Medicine; Referring Provider Family Medicine; Visit Provider Family Medicine
DX: M25.551 Pain in right hip (principal)
CPT/HCPCS: 73502

== ENCOUNTER → 2021-10-10 | Outpatient (CLI) | payer OTHER, SELFPAY ==
[2021-10-10 11:42] LABS: Mucous, Urine 0 SEEN /hpf (<or=2+)
[2021-10-10 11:47] LABS: Color, Urine Brown (Yellow); Glucose, Dipstick Normal (Normal); Ketone-Dipstick 15 mg/dl (Negative); Leukocyte Esterase-Dipstick 100 /ul (Negative); Nitrite-Dipstick Positive (Negative); Occult Blood-Urine 250 /ul (Negative); Protein-Dipstick 500 mg/dl (Negative); Urine Bilirubin Dipstick 1 mg/dL (Negative); Urine Clarity Turbid (Clear); Urine Urobilinogen Normal (Normal)
[2021-10-10 11:56] LABS: Bacteria 1+ /hpf (None Seen); Red Blood Cells-Urine 25-50 SEEN /hpf (0-5); Squamous Epithelial Cells - UA 0-5 SEEN /hpf (5-10); White Blood Cells 10-25 SEEN /hpf (0-5)
== END | disposition home or self-care (01) ==
LOC: LABSPEC 11:29
PROVIDERS: PCP Family Medicine; Visit Provider Physician Assistant
DX: R30.9 Painful micturition, unspecified (principal)
CPT/HCPCS: 81001; 87077; 87086; 87088; 87186

== ENCOUNTER 2021-10-17 13:47 | Outpatient (CLI) | payer OTHER, SELFPAY | END 2021-10-17 23:59 | disposition short-term general hospital (02) | LOC: MFPLAB 13:49 | PROVIDERS: PCP Family Medicine; Visit Provider Nurse Practitioner Family | DX: N39.0 Urinary tract infection, site not specified (principal) | CPT/HCPCS: 87086; 87088 ==

== ENCOUNTER → 2022-04-20 | Outpatient (CLI) | payer OTHER, SELFPAY ==
[2022-04-20 18:24] LABS: ALB/GLOB Ratio 1.2 RATIO (0.9-2.4); AST(SGOT) 21 U/L (15-37); Alanine Aminotransfer ALT/SGPT 25 U/L (13-56); Alkaline Phosphatase 81 U/L (45-117); Anion Gap 5 (5-15); BUN 11 mg/dL (7-18); BUN/Creat Ratio 14.2 RATIO (10-20); Chloride 104 mmol/L (98-107); Cholesterol 244 mg/dL (200); Creatinine, Serum 0.77 mg/dL (0.55-1.02); EST Glomerular Filtration Rate 80 mL/min (>60); Est Glom Filt Rate - Afr Amer 96 mL/min (>60); Globulin 3.2 g/dL (2.2-4.2); Glucose 97 mg/dL (74-106); Microalbumin,Random Urine 9.8 mg/L (NO RANGE EST.); Microalbumin:Creatinine Ratio 7.8 mg/g CRE (<30 mg/g CRE); Potassium 3.8 mmol/L (3.5-5.1); Protein, Total 7.2 g/dL (6.4-8.2); Sodium Level 139 mmol/L (136-145)
[2022-04-23 14:39] LABS: LDL, Direct 120295 155 mg/dL (0-99)
== END | disposition home or self-care (01) ==
LOC: MFPLAB 15:56
PROVIDERS: PCP Family Medicine; Visit Provider Family Medicine
DX: I10 Essential (primary) hypertension (principal); E11.9 Type 2 diabetes mellitus without complications
CPT/HCPCS: 36415; 80053; 82043; 82465; 82570; 83036; 83721

== ENCOUNTER → 2022-05-22 | Outpatient (CLI) | payer OTHER, SELFPAY ==
--- NOTE | 2022-05-22 08:19 | RAD_ITS ---
STUDY: AIR CONTRAST UPPER GI SERIES and esophagram. REASON FOR EXAM: Female, 62 years old. R13.10 - Dysphagia, unspecified FLUOROSCOPY TIME (if supplied): (1 minute and 15 seconds.) minutes/seconds. 10 images were obtained. TECHNIQUE: SINGLE CONTRAST AND AIR CONTRAST FLUOROSCOPIC IMAGES. COMPARISON: None. FINDINGS: The cervical esophagus demonstrates normal motility without aspiration. There is no stricture or extrinsic mass effect. No intraluminal polypoid mass is identified. The thoracic esophagus distends well without stricture or mucosal fold thickening. No mucosal ulcerations are identified. There is no extrinsic mass effect. There are no diverticula. No hiatal hernia or gastroesophageal reflux was identified. The patient ingested a 12 mm tablet of barium without any difficulty. The stomach distends well without mucosal fold thickening or mucosal ulceration. There is no intraluminal mass. The duodenal bulb is freely distensible without deformity or ulceration. The duodenal sweep is normal in position and caliber. RAD/Upper GI w/BA Swallow IMPRESSION: Normal air-contrast esophagram and upper GI series. Electronically Signed: Julio Cesar Sparrow MD at 14:59 EDT ,
== END | disposition home or self-care (01) ==
LOC: RAD 08:17
PROVIDERS: PCP Family Medicine; Referring Provider Surgery; Visit Provider Surgery
DX: R13.10 Dysphagia, unspecified (principal)
CPT/HCPCS: 74246

== ENCOUNTER → 2022-09-18 | Outpatient (CLI) | payer OTHER, SELFPAY ==
[2022-09-18 10:08] LABS: Absolute Lymphocyte Count 1.24 X10^3/uL (0.83-4.51); Absolute Neutrophil Count 2.5 X10^3/uL (2.0-7.7); Basophil# 0.05 X10^3/uL; Basophil% 1.2 % (0-1); Eosinophil# 0.11 X10^3/uL; Eosinophils% 2.6 % (0-5); Hematocrit 48.9 % (37-47); Hemoglobin 15.8 g/dL (12.0-15.0); Lymphocyte # 1.24 X10^3/ul (0.83-4.51); Lymphocyte % 29.2 % (19-41); Mean Corp Hgb Conc 32.3 g/dL (32-36); Mean Corpuscular Hgb 29.3 pg (27.0-32.0); Mean Corpuscular Volume 90.7 fL (81-99); Monocyte# 0.37 X10^3/uL; Monocyte% 8.7 % (0-10); NRBC Flagged by Analyzer 0 % (0-5); Neutrophil # 2.47 X10^3/uL (2.7-7.7); Neutrophil % 58.1 % (47-70); Platelet Count 186 K/mm3 (150-450); RBC Distribution Width CV 12.3 % (11.6-14.6); RBC Distribution Width SD 41.1 fl (35.1-43.9); Red Blood Count 5.39 M/mm3 (4.2-5.4); White Blood Count 4.3 K/mm3 (4.4-11.0)
[2022-09-18 10:29] LABS: Microalbumin:Creatinine Ratio 11.9 mg/g CRE (<30 mg/g CRE)
[2022-09-18 10:43] LABS: ALB/GLOB Ratio 1.4 RATIO (0.9-2.4); AST(SGOT) 18 U/L (15-37); Alanine Aminotransfer ALT/SGPT 26 U/L (13-56); Albumin, Serum 4.1 g/dL (3.2-5.0); Alkaline Phosphatase 96 U/L (45-117); Anion Gap 5 (5-15); BUN 12 mg/dL (7-18); BUN/Creat Ratio 15.2 RATIO (10-20); Chloride 106 mmol/L (98-107); Cholesterol 236 mg/dL (200); Creatinine, Serum 0.79 mg/dL (0.55-1.02); EST Glomerular Filtration Rate 78 mL/min (>60); Est Glom Filt Rate - Afr Amer 94 mL/min (>60); Globulin 2.9 g/dL (2.2-4.2); Glucose 105 mg/dL (74-106); High Density Lipoprotein 53 mg/dL; Potassium 4.3 mmol/L (3.5-5.1); Sodium Level 138 mmol/L (136-145); Triglycerides 113 mg/dL; Very Low Density Lipoprotein 23 mg/dL (5-40)
== END | disposition home or self-care (01) ==
LOC: MFPLAB 09:09
PROVIDERS: PCP Family Medicine; Visit Provider Family Medicine
DX: K75.81 Nonalcoholic steatohepatitis (NASH) (principal); I10 Essential (primary) hypertension
CPT/HCPCS: 36415; 80053; 80061; 82043; 82103; 82570; 83036; 85025

== ENCOUNTER → 2023-05-08 | Outpatient (CLI) | payer MEDICARE, OTHER, SELFPAY ==
--- NOTE | 2023-05-08 14:53 | BI_ITS ---
MAMMOGRAPHY - BILATERAL SCREENING REASON FOR EXAM: Female, 63 years old. Routine annual screening examination. PERTINENT HISTORY: Non-contributory. TECHNIQUE: Digital bilateral breast tiny (3D mammographic acquisition) in the CC and MLO projections. 2-D mediolateral oblique (MLO) and craniocaudad (CC) views of both breasts were obtained. CAD: Full Field Digital Mammography with Computer Added Detection was performed. COMPARISON: Comparison is made with prior study dated December 22, 2020 and November 05, 2019. FINDINGS: Breast Composition: The breasts are heterogeneously dense, which may obscure small masses. There are no dominant masses or suspicious calcifications. Stable small benign-appearing bilateral axillary lymph nodes. No other significant abnormalities are identified. There has been no significant change since the prior study. BI/SCRN MAMM (CAD)W/TINY BILAT IMPRESSION: Stable bilateral screening mammogram. Yearly follow-up mammogram recommended. (A) ASSESSMENT CATEGORY: BIRADS Category 2: Benign. A letter regarding these results will be sent to the patient by the facility within 30 days. Approximately 10% of breast cancers are not detected by mammography. A normal mammogram should not delay biopsy of a clinically suspicious abnormality. [id number] Electronically Signed: Julio Cesar Sparrow MD at 8:11 EDT ,
--- NOTE | 2023-05-08 14:56 | BD_ITS ---
STUDY: DUAL ENERGY X-RAY ABSORPTIOMETRY / DXA REASON FOR EXAM: Female, 63 years old. V76.12ScreeningBONE DENSITY REASON FOR EXAM TECHNIQUE: Bone Mineral Density (BMD) measurements of lumbar spine and bilateral hips were obtained. COMPARISON: Comparison is made with prior study dated December 13, 2017. FINDINGS: Lumbar Spine (L1-L4): g/cm2 (0.850) / T-score (-1.5) / Z-score (0.2) Findings are suggestive of osteopenia with a low fracture risk. Left Femur Total: g/cm2 (0.595) / T-score (-2.8) / Z-score (-1.6) Left Femoral Neck: g/cm2 (0.585) / T-score (-2.4) / Z-score (-0.9) Right Femur Total: g/cm2 (0.559) / T-score (-3.1) / Z-score (-1.9) Right Femoral Neck: g/cm2 (0.498) / T-score (-3.2) / Z-score (-1.6) The T-Scores on the most recent prior examination were: Lumbar Spine (L1-L4): There has been worsening of bone density since the previous examination. Left Femur Total: which represents a worsening of 7.6%. Right Femur Total: which represents a worsening of 8.3%. BD/Dexa Bone Density Study IMPRESSION: The patient is considered osteoporotic as outlined below according to World Mark Organization (WHO) criteria with a high fracture risk. There has been worsening of bone density since the previous examination. Reference Information: The T-score is the number of standard deviations above or below the standard which is normal for young adults at their peak bone mineral density. The World Health Organization (WHO) interprets the T-scores as follows: Above -1 Normal bone density Between -1 and -2.5 Osteopenia Equal to / or below -2.5 Osteoporosis As a practical clinical guideline, osteopenia may be graded as follows: Mild -1 through -1.5 Moderate -1.6 through -2.0 Severe -2.1 through -2.4 The Z-score is the number of standard deviations above or below age-matched controls. A Z-score of less than -1.5 would be considered abnormal. References: 1. NIH Osteoporosis and Related Bone Diseases www osteo.org 2. International Society for Clinical Densitometry www iscd.org 3. National Osteoporosis Foundation www nof.org Electronically Signed: Julio Cesar Sparrow MD at 9:30 EDT ,
== END | disposition home or self-care (01) ==
PROVIDERS: PCP Family Medicine; Referring Provider Family Medicine; Visit Provider Family Medicine
DX: Z12.31 Encounter for screening mammogram for malignant neoplasm of breast (principal); M85.80 Other specified disorders of bone density and structure, unspecified site; M81.0 Age-related osteoporosis without current pathological fracture
CPT/HCPCS: 77063; 77067; 77080

== ENCOUNTER 2023-10-17 10:35 | Outpatient (CLI) | payer MEDICARE, OTHER, SELFPAY ==
--- OUTSIDE RECORDS SUMMARY | 2023-10-17 12:16 | XMS RPT_ITS | CCD ---
Author Name Unknown Address [address] [place] [address] Organization [facility] Care Team Providers Care Product Tester Name Role Phone Micheal Sierra MD Primary Care Provider [phone] MICHEAL SIERRA Primary Care Unavailable ИВАН BAL Attending Unavailable Allergies Allergy Classification Reported Allergen(s) Allergy Type Date of Onset Reaction(s) Facility (3 sources) Sulfamethoxazole / Trimethoprim; Translations: [SULFAMETHOXAZOLE-TRI METHOPRIM] Drug Allergy 2 [employer] (2 sources) Amoxicillin; Translations: [AMOXICILLIN] Drug Allergy 3 Hives [facility] Medications Current Medications Medication Drug Class(es) Dates Sig (Normalized) Sig (Original) cephalexin 500 mg oral capsule (1 source) Cephalosporin Antibacterial Start: 02-26-2023 End: 03-05-2023 take 1 capsule by mouth twice daily cephalexin (KEFLEX) 500 mg capsule Indications: Dysuria , Urinary tract infection with hematuria, site unspecified Take 1 capsule (500 mg total) by mouth 2 (two) times a day for 7 days. 14 each 0 02/26/2023 03/05/2023 Active FLUoxetine 20 mg oral tablet (3 sources) Serotonin Reuptake Inhibitor Start: 11-14-2021 take 1-0.5 tablets by mouth once daily FLUoxetine (PROzac) 20 mg tablet TAKE 1 & 1/2 TO 2 (ONE & ONE-HALF TO TWO) TABLETS BY MOUTH ONCE DAILY 0 11/14/2021 Active Problems Problem Classification Problem Date Documented Da te Episodic/Chronic Genitourinary symptoms and ill-defined conditions (3 sources) Dysuria; Translations: [Dysuria] Onset: 02-26-2023 Episodic Urinary tract infections (5 sources) Infective cystitis; Translations: [Cystitis, unspecified without hematuria] Onset: 12-23-2021 Episodic Results Test Name Value Interpretation Reference Range Facil ity Vital Signs Date Time Vital Sign Value Performing Clinician Jacinto seth 02-26-2023 15:50-0400 Body height 165.1 cm Иван Siwakoti PA Work Phone: [facility] 02-26-2023 15:50-0400 Body mass index (BMI) [Ratio] 23.13 kg/m2 Иван Siwakoti PA Work Phone: [facility] 02-26-2023 15:50-0400 Body temperature 97.9 [degF] Иван Siwakoti PA Work Phone: [employer] 02-26-2023 15:50-0400 Body weight 63.05 kg Иван Siwakoti PA Work Phone: [facility] 02-26-2023 15:50-0400 Diastolic blood pressure 74 mm[Hg] Иван Siwakoti PA Work Phone: [facility] 02-26-2023 15:50-0400 Heart rate 69 /min Иван Siwakoti PA Work Phone: [employer] 02-26-2023 15:50-0400 Respiratory rate 20 /min Иван Siwakoti PA Work Phone: [facility] 02-26-2023 15:50-0400 SaO2% (BldA) [Mass fraction] 98 % Иван Siwakoti PA Work Phone: [facility] 02-26-2023 15:50-0400 Systolic blood pressure 123 mm[Hg] Иван Siwakoti PA Work Phone: [employer] 12-21-2021 18:34-0500 Body height 165.1 cm Peggy Saucedo NP Work Phone: [employer] 12-21-2021 18:34-0500 Body mass index (BMI) [Ratio] 22.47 kg/m2 Peggy Saucedo NP Work Phone: [employer] 12-21-2021 18:34-0500 Body temperature 97.9 [degF] Peggy Saucedo MELTER CLERK Work Phone: [employer] 12-21-2021 18:34-0500 Body weight 61.24 kg Peggy Saucedo MELTER CLERK Work Phone: [employer] 12-21-2021 18:34-0500 Heart rate 66 /min Peggy Saucedo MELTER CLERK Work Phone: [employer] 12-21-2021 18:34-0500 Respiratory rate 14 /min Peggy Saucedo MELTER CLERK Work Phone: [employer] 12-21-2021 18:34-0500 SaO2% (BldA) [Mass fraction] 98 % Peggy Saucedo MELTER CLERK Work Phone: [employer] Encounters Encounter Date Encounter Type Care Provider Facility Start: 02-26-2023 End: 02-26-2023 ambulatory MICHEAL SIERRA [facility] Start: 02-26-2023 End: 02-26-2023 Office outpatient visit 15 minutes Иван P Mary PA Work Phone: [facility] Procedures Date Procedure Procedure Detail Performing Clinician Start: 02-26-2023 Urnls dip stick/tabl et rgnt auto w/o microscopy Иван P Florencioti PA Work Phone: Start: 12-21-2021 Gluc bld gluc mntr d ev cleared fda spec home use Peggy Saucedo MELTER CLERK Work Phone: Start: 12-21-2021 Urnls dip stick/tabl et rgnt auto w/o microscopy Peggy Saucedo MELTER CLERK Work Phone: Start: 12-21-2021 Culture bacterial quanttative colony count urine Peggy Saucedo MELTER CLERK Work Phone: Plan of Treatment Date Care Activity Detail Author Start: 06-15-2023 Influenza vaccination Influenz a Vaccine (Season Ended) [employer] Start: 2023 Falls Risk Assessment Falls Risk Ass essment [employer] Start: 04-05-2022 DTaP,Tdap,and Td Vac cines (2 - Td or Tdap) DTaP,Tdap,and Td Vaccines (2 - Td or Tdap) [facility] Start: 12-21-2021 Adolescent depressio n screening assessment Depression Screening [facility] Start: 12-21-2021 Hepatitis C screening Hepatitis C Sc reening [facility] Start: 12-21-2021 HIV screening HIV Screening [facility] Start: 12-21-2021 Medicare Annual Well ness Visit Medicare Annual Wellness Visit [facility] Start: 12-21-2021 Screening for malign ant neoplasm of breast Breast Cancer Screening [facility] Start: 12-21-2021 Screening for malign ant neoplasm of colon Colorectal Cancer Screening: Colonoscopy [facility] Start: 12-21-2021 Screening for osteoporosis Osteoporosis Screening (Bone Density Screening) [facility] Start: 12-21-2021 Social Influencers o f Health Screening Social Influencers of Health Screening [facility] Start: 10-17-2021 COVID-19 Vaccine (4 - Booster for Pfizer series) COVID-19 Vaccine (4 - Booster for Pfizer series) [facility] Start: 12-26-2014 Zoster Vaccines (2 of 3) Zoster Vacc marifer (2 of 3) [facility] Start: 04-05-2013 Pneumococcal Vaccine : 65+ Years (2 - PCV) Pneumococcal Vaccine: 65+ Years (2 - PCV) [facility] Start: 1979 Screening for malign ant neoplasm of cervix Cervical Cancer Screening: Pap Smear [facility] End: 02-27-2024 Bacteria identified in Urine by Culture Culture urine Microbiology Routine Dysuria 1 Occurrences starting 02/26/2023 until 02/27/2024 [facility] Work Phone: Immunizations Immunization Date Immunization Notes Care Provider Fa joe 07-19-2021 influenza virus vacc ine, unspecified formulation Иван Mary MOSLEY Work Phone: [facility] Payers Date Payer Category Payer Medicare MEDICARE MEDICAR E PART A & B [id number] 2023-Present [address] [place] [address] Medicare [id number] 2023 Medicare [id number] 2021 Medicaid [facility] MEDIC AID [employer] MEDICA[employer] [id number] 2021-Present [address] [place] [address] [id number] 1960 Unknown [id number] Social History Date Type Detail Facility Tobacco smoking stat [facility] Tobacco smoking consumption unknown [facility] Start: 1960 Sex Assigned At Not on file T [facility] Start: 02-16-2023 End: 02-26-2023 Exposure to SARS-CoV-2 (event) Not sure [facility] Start: 02-26-2023 Tobacco smoking stat [facility] Never smoked tobacco [facility] Start: 02-26-2023 Tobacco use and exposure Smokeless t obacco non-user [facility] Start: 02-26-2023 Alcohol intake Ex-drinker (finding) [facility] History of Present illness Narrative 02-26-2023 MELANY Sahu - 02/26/2023 3:50 PM EDTPMELANY Preston - 02/26/2023 3:50 PM EDT Note Date & Type Note Facility 02-26-2023 History of Presen t illness Narrative Take antibiotic as prescribed for UTI symptoms. I have also prescribed phenazopyridine for urinary discomfort. Take it as prescribed. Pyridium has tendency to change the urine color which is normal. If your symptoms are not better in next 5 to 7 days, please follow-up with the PCP or return back to clinic. Drink plenty of fluid. Chief Complaint Patient presents with UTI Burning and frequency x 2 days History of Present Illness Leticia West is a 63 y.o. female who presents with the complaint of burning, painful, frequency of urination from last 2 days. Patient reports she gets frequent UTI and the last one was in September. Patient also reports of lower back/flank and suprapubic abdominal pain and spasm. Denies pelvic pain. Denies fever, chills, nausea, vomiting. Denies other review of system. Medical History Past Medical History: Diagnosis Date Diabetes mellitus (CMS/HCC) Hypertension Restless leg syndrome Past Surgical History: Procedure Laterality Date APPENDECTOMY CHOLECYSTECTOMY FOOT SURGERY Left HYSTERECTOMY SINUS SURGERY TONSILLECTOMY No family history on file. Allergies Allergen Reactions Amoxicillin Hives Bactrim [Sulfamethoxazole-Trimethoprim] Social History Socioeconomic History Marital status: Spouse name: Not on file Number of children: Not on file Years of education: Not on file Highest education level: Not on file Occupational History Not on file Tobacco Use Smoking status: Never Smokeless tobacco: Never Vaping Use Vaping Use: Never used Substance and Sexual Activity Alcohol use: Not Currently Drug use: Never Sexual activity: Not on file Other Topics Concern Not on file Social History Narrative Not on file Review of Systems Genitourinary: Positive for dysuria, frequency and urgency. All other systems reviewed and are negative. Physical Exam Vitals: 02/26/23 1550 Weight: 63 kg (139 lb) Height: 1.651 m (65 ) Physical Exam Vitals and nursing note reviewed. Constitutional: General: She is not in acute distress. Appearance: Normal appearance. She is not ill-appearing. Cardiovascular: Rate and Rhythm: Normal rate and regular rhythm. Pulses: Normal pulses. Heart sounds: Normal heart sounds. Pulmonary: Effort: Pulmonary effort is normal. Breath sounds: Normal breath sounds. Abdominal: General: Abdomen is flat. Bowel sounds are normal. Palpations: Abdomen is soft. Tenderness: There is abdominal tenderness in the suprapubic area. There is no right CVA tenderness or left CVA tenderness. Negative signs include Briceno's sign. Skin: General: Skin is warm. Capillary Refill: Capillary refill takes less than 2 seconds. Neurological: Mental Status: She is alert and oriented to person, place, and time. Mental status is at baseline. Psychiatric: Mood and Affect: Mood normal. Behavior: Behavior normal. No orders to display Urgent Care Course Medical Decision Making: Patient is a 63 female presents to the clinic with a complaint of UTI symptoms for the last couple days. Patient is examined eval by myself and does not appear to be in any distress. Vital signs within normal limit. Physical exam is significant of tenderness in suprapubic area with some guarding. Given patient presentation of UTI symptoms, [id number] urine is collected which shows 2000+ of glucose however patient is on diabetic medication that she does not remember the name of. Per patient, she was told by the physician that she will expel the glucose via urine. Patient also has trace amount of blood. Since patient has no evidence of UTI in the urinalysis, but very symptomatic, I have treated patient with Keflex for 7 days and Pyridium for urinary discomfort. A culture has been sent. Patient be notified about the culture result if anything is different. Patient understand the plan. Differential Diagnosis Included: UTI, vaginitis, glucosuria Diagnosis: Dysuria (Primary) - Culture urine; Future - POC Urine Auto W/O Micro - cephalexin (KEFLEX) 500 mg capsule; Take 1 capsule (500 mg total) by mouth 2 (two) times a day for 7 days. Dispense: 14 each; Refill: 0 - phenazopyridine (PYRIDIUM) 100 mg tablet; Take 1 tablet (100 mg total) by mouth 3 (three) times a day if needed for bladder spasms for up to 2 days. Dispense: 6 each; Refill: 0 Urinary tract infection with hematuria, site unspecified - cephalexin (KEFLEX) 500 mg capsule; Take 1 capsule (500 mg total) by mouth 2 (two) times a day for 7 days. Dispense: 14 each; Refill: 0 - phenazopyridine (PYRIDIUM) 100 mg tablet; Take 1 tablet (100 mg total) by mouth 3 (three) times a day if needed for bladder spasms for up to 2 days. Dispense: 6 each; Refill: 0 documented in this encounter [facility] History of Present illness Narrative 12-21-2021 Peggy Saucedo, MELTER CLERK - 12/21/2021 6:15 PM Hortencia Saucedo, MELTER CLERK - 12/21/2021 6:15 PM Hortencia Saucedo, MELTER CLERK - 12/21/2021 6:15 PM Hortencia Saucedo, MELTER CLERK - 12/21/2021 6:15 PM EST Note Date & Type Note Facility 12-21-2021 History of Presen t illness Narrative [facility] reviewed this chart previously Images from the original note were not included. SUBJECTIVE: Leticia West is a 61 y.o. female who complains of urinary frequency, urgency and dysuria x 1 days, without flank pain, fever, chills, or abnormal vaginal discharge or bleeding. OBJECTIVE: Appears well, in no apparent distress. Vital signs are normal. The abdomen is soft without tenderness, guarding, mass, rebound or organomegaly. No CVA tenderness or inguinal adenopathy noted. Urine dipstick shows positive for glucose. Micro exam: not done sent for culture. . ASSESSMENT: UTI uncomplicated without evidence of pyelonephritis PLAN: Treatment per orders - also push fluids, may use Pyridium OTC prn. Call PCP or go to ER prn if these symptoms worsen or fail to improve as anticipated. Patient Education Urinary Tract Infection (UTI) in Women: Care Instructions Overview A urinary tract infection, or UTI, is a general term for an infection anywhere between the kidneys and the urethra (where urine comes out). Most UTIs are bladder infections. They often cause pain or burning when you urinate. UTIs are caused by bacteria and can be cured with antibiotics. Be sure to complete your treatment so that the infection does not get worse. Follow-up care is a crowley part of your treatment and safety. Be sure to make and go to all appointments, and call your doctor if you are having problems. It's also a good idea to know your test results and keep a list of the medicines you take. How can you care for yourself at home? Take your antibiotics as directed. Do not stop taking them just because you feel better. You need to take the full course of antibiotics. Drink extra water and other fluids for the next day or two. This will help make the urine less concentrated and help wash out the bacteria that are causing the infection. (If you have kidney, heart, or liver disease and have to limit fluids, talk with your doctor before you increase the amount of fluids you drink.) Avoid drinks that are carbonated or have caffeine. They can irritate the bladder. Urinate often. Try to empty your bladder each time. To relieve pain, take a hot bath or lay a heating pad set on low over your lower belly or genital area. Never go to sleep with a heating pad in place. To prevent UTIs Drink plenty of water each day. This helps you urinate often, which clears bacteria from your system. (If you have kidney, heart, or liver disease and have to limit fluids, talk with your doctor before you increase the amount of fluids you drink.) Urinate when you need to. If you are sexually active, urinate right after you have sex. Change sanitary pads often. Avoid douches, bubble baths, feminine hygiene sprays, and other feminine hygiene products that have deodorants. After going to the bathroom, wipe from front to back. When should you call for help? Call your doctor now or seek immediate medical care if: Symptoms such as fever, chills, nausea, or vomiting get worse or appear for the first time. You have new pain in your back just below your rib cage. This is called flank pain. There is new blood or pus in your urine. You have any problems with your antibiotic medicine. Watch closely for changes in your health, and be sure to contact your doctor if: You are not getting better after taking an antibiotic for 2 days. Your symptoms go away but then come back. Where can you learn more? Go to [email or web address]://[email or web address].AboutOurWork/sandra alcocer Enter K848 in the search box to learn more about Urinary Tract Infection (UTI) in Women: Care Instructions. Current as of: November 24, 2020 Content Version: 13.1 [employer]. Care instructions adapted under license by your healthcare professional. If you have questions about a medical condition or this instruction, always ask your healthcare professional. [employer] disclaims any warranty or liability for your use of this information. Subjective Patient presents today with urinary burning, bodyaches and odor X 1d. Patient reports a h/o same issue which was ecoli in September. Patient was doing well with her blood sugars and she has since been taken off of the Jardience. Patient has been feeling feverish in the past few days and her TMax has been 99.9 at home but without chills, again as this happened in September; however she also states she has had a cold sore as well. Patient ID: Leticia West is a 61 y.o. female. History provided by: Patient solar energy specialist used: No Review of Systems Constitutional: Positive for fatigue and fever. Negative for appetite change, chills and diaphoresis. HENT: Negative. Respiratory: Negative. Cardiovascular: Negative. Gastrointestinal: Positive for nausea. Endocrine: Negative. Genitourinary: Positive for dysuria (with odor). Musculoskeletal: Positive for myalgias. Skin: Negative. Neurological: Negative. Hematological: Negative. Psychiatric/Behavioral: Negative. Objective Physical Exam Vitals and nursing note reviewed. Constitutional: General: She is not in acute distress. Appearance: Normal appearance. She is normal weight. She is not ill-appearing, toxic-appearing or diaphoretic. HENT: Head: Normocephalic and atraumatic. Eyes: General: No scleral icterus. Cardiovascular: Rate and Rhythm: Normal rate and regular rhythm. Pulses: Normal pulses. Heart sounds: Normal heart sounds. Pulmonary: Effort: Pulmonary effort is normal. Breath sounds: Normal breath sounds. Abdominal: General: Distension: over pelvis. Tenderness: There is abdominal tenderness. There is no right CVA tenderness or left CVA tenderness. Musculoskeletal: General: Tenderness (generalized body aches) present. Cervical back: Normal range of motion and neck supple. Skin: General: Skin is warm and dry. Capillary Refill: Capillary refill takes less than 2 seconds. Coloration: Skin is not pale. Findings: Erythema (flushed cheeks) present. Neurological: General: No focal deficit present. Mental Status: She is alert and oriented to person, place, and time. Psychiatric: Mood and Affect: Mood normal. Behavior: Behavior normal. Thought Content: Thought content normal. Judgment: Judgment normal. Procedures Assessment/Plan SUBJECTIVE: Leticia West is a 61 y.o. female who complains of urinary frequency, urgency and dysuria x 1 days, without flank pain, fever, chills, or abnormal vaginal discharge or bleeding. OBJECTIVE: Appears well, in no apparent distress. Vital signs are normal. The abdomen is soft without tenderness, guarding, mass, rebound or organomegaly. No CVA tenderness or inguinal adenopathy noted. Urine dipstick shows positive for glucose. Micro exam: not done sent for culture. . ASSESSMENT: UTI uncomplicated without evidence of pyelonephritis PLAN: Treatment per orders - also push fluids, may use Pyridium OTC prn. Call PCP or go to ER prn if these symptoms worsen or fail to improve as anticipated. Subjective Patient ID: Leticia West is a 61 y.o. female. HPI Review of Systems Objective Physical Exam Procedures Assessment/Plan documented in this encounter [facility] Evaluation note Note Date & Type Note Facility documented in this encounter [facility] Evaluation note Note Date & Type Note Facility documented in this encounter [facility] Instructions Attachments Note Date & Type Note Facility Instructions The following attachments cannot be sent through Care Everywhere.UTI (Urinary Tract Infection): Female (Thai)documented in this encounter [facility] Advance Directives No Advanced Directives Records FoundDocuments on File Type Date Recorded Patient Skein Yarn Drier Expl anation Power of Multigraph Operator Summary Purpose Family History No Family History Records Found Additional Source Comments Reason for Visit (unrecogniz ed section and content) Reason Comments UTI Burning and frequenc y x 2 days Care Teams (unrecognized sec tion and content) Product Tester Relationship Specialty Start Date End Date Micheal Sierra MD [address] [place] [address] PCP - General Family Medicine 12/21/21 Ordered Prescriptions (unrec ognized section and content) INFORMATION SOURCE (unrecogn ized section and content) FOR RECORDS PERTAINING TO PATIENTS WHO ARE OR HAVE BEEN ENROLLED IN A CHEMICAL DEPENDENCY/SUBSTANCEABUSE PROGRAM, SOME INFORMATION MAY BE OMITTED. This clinical summary was aggregated from multiple sources. Caution should be exercised in using it in the provision of clinical care. This summary normalizes information from multiple sources, and as a consequence, information in this document may materially change the coding, format and clinical context of patient data. In addition, data may be omitted in some cases. CLINICAL DECISIONS SHOULD BE BASED ON THE PRIMARY CLINICAL RECORDS. [employer]. provides no warranty or guarantee of the accuracy or completeness of information in this document.
[2023-10-17 12:26] LABS: Absolute Lymphocyte Count 1.06 X10^3/uL (0.83-4.51); Absolute Neutrophil Count 2.5 X10^3/uL (2.0-7.7); Basophil# 0.02 X10^3/uL; Basophil% 0.5 % (0-1); Eosinophil# 0.09 X10^3/uL; Eosinophils% 2.3 % (0-5); Hematocrit 47.7 % (37-47); Lymphocyte # 1.06 X10^3/ul (0.83-4.51); Lymphocyte % 26.8 % (19-41); Mean Corp Hgb Conc 31.4 g/dL (32-36); Mean Corpuscular Hgb 28.1 pg (27.0-32.0); Mean Corpuscular Volume 89.3 fL (81-99); Mean Platelet Vol. 10.3 fl (6.2-12.0); Monocyte# 0.31 X10^3/uL; Monocyte% 7.8 % (0-10); NRBC Flagged by Analyzer 0 % (0-5); Neutrophil # 2.47 X10^3/uL (2.7-7.7); Neutrophil % 62.6 % (47-70); Platelet Count 178 K/mm3 (150-450); RBC Distribution Width CV 12.2 % (11.6-14.6); Red Blood Count 5.34 M/mm3 (4.2-5.4)
[2023-10-17 13:04] LABS: ALB/GLOB Ratio 1.2 RATIO (0.9-2.4); AST(SGOT) 22 U/L (15-37); Alanine Aminotransfer ALT/SGPT 31 U/L (13-56); Albumin, Serum 3.9 g/dL (3.2-5.0); Alkaline Phosphatase 76 U/L (45-117); Anion Gap 4 (5-15); BUN 13 mg/dL (7-18); Chloride 108 mmol/L (98-107); Creatinine, Serum 0.72 mg/dL (0.55-1.02); EST Glomerular Filtration Rate 86 mL/min (>60); Est Glom Filt Rate - Afr Amer 104 mL/min (>60); Globulin 3.2 g/dL (2.2-4.2); Glucose 90 mg/dL (74-106); Potassium 3.7 mmol/L (3.5-5.1); Protein, Total 7.1 g/dL (6.4-8.2); Sodium Level 139 mmol/L (136-145)
[2023-10-17 13:12] LABS: Hepatitis B Surface Antibody Reactive
[2023-10-19 21:07] LABS: HEPATITIS B SURFACE AG Negative (Negative); Hep C Antibodies Non Reactive (Non Reactive); Hepatitis A AB, Total Negative (Negative); Hepatitis A IgM Antibody Negative (Negative); Hepatitis B Core AB IgM Negative (Negative); QNTFERON TB Mitogen Value > 10.00 IU/mL (.); QNTFERON TB Nil Value 0 IU/mL (.); QNTFERON TB1+ Ag Value 0.01 IU/mL (.); QNTFERON TB2+ Ag Value 0.01 IU/mL (.); QNTIFERON TB Positive Criteria Negative (Negative)
== END 2023-10-17 23:59 | disposition home or self-care (01) ==
LOC: MTLAB 10:36
PROVIDERS: PCP Family Medicine; Referring Provider Dermatology Pediatric Dermatology; Visit Provider Dermatology Pediatric Dermatology
DX: L40.0 Psoriasis vulgaris (principal); L40.59 Other psoriatic arthropathy; Z41.9 Encounter for procedure for purposes other than remedying health state, unspecified; Z79.899 Other long term (current) drug therapy
CPT/HCPCS: 36415; 80053; 80074; 85025; 86480; 86706; 86708

== ENCOUNTER 2024-03-24 11:00 | Outpatient (RCR) | payer MEDICARE, OTHER, SELFPAY ==
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
--- NOTE | 2024-03-24 12:20 | HP.PTREVAL_ITS ---
Re-Evaluation Intro: Dr. Omar Sierra MD, It has been my pleasure to treat PHILL GAR over the last 9 visits for L SHLD PAIN; TENDONITIS AT TERES MINOR AND INFRASPINATUS, TRIGGER POINTS. Please see the progress note below for an update on the physical therapy plan of care! Subjective Subjective: PATIENT REPORTS HER PAIN IS STILL THERE BUT IT IS BETTER. I CAN SLEEP BETTER AND I CAN SLEEP ON IT. WHEN I WAKE UP IT IS JUST SORE. SHE REPORTS SHE CAN REACH OUT TO THE SIDE A LITTLE BETTER BUT NOT BACK ANY BETTER. SHE REPORTS SHE STILL HAS PAIN AND NO BETTER USE OF HER ARM OVER ALL DAY TO DAY. SHE REPORTS LESS PAIN DUE TO AVOIDING THE THINGS THAT AGGRAVATE IT. SHE REPORTS SHE HAS TO BE VERY CAREFUL HOW SHE MOVES OR REACHES OR SHE GETS A PAIN THAT STOPS HER AND SHE HAS TO JUST WAIT UNTIL THE PAIN EASES TO MOVE AGAIN. THE GOES FROM HER SHLD TO ABOUT HER ELBOW. PAIN IS RANGING FROM 2-8/10 - CONSTANT. Objective Objective/Function: THIS PATIENT HAS BEEN COMPLIANT WITH PT AND IS NOT MAKING PROGRESS. PHYSICIAN RE-ASSESSMENT IS RECOMMENDED AND PATIENT IS AGREEABLE. UPON EXAM TODAY THERE IS NOT SIGNIFICANT CHANGE IN NECK ROM, L SHLD ROM, L UE STRENGTH OR DASH SCORE. ROM deficit: R UE WFL. AROM L SHLD FLEX 110 DEG, ABD 62 DEG. (JUST ONE REP OF LEFT SHLD ACTIVE ABD TESTING PROVOKES A LOT OF PAIN). PASSIVE FLEX 116 DEG. SUPINE PASSIVE ER WITH 35 DEG ABD IN LOOSE PACK POSITION: 43 DEG, IR 60 DEG. PAIN DURING MVMT WITH AROM AND AT THE END OF THE AVAILABLE RANGE WITH PROM. Motor deficit: L SHLD FLEX 2+/5, ABD 2-/5, IR 2+/5, ER 2-/5, ELBOW 4-/5, ASSOCIATE ART DIRECTOR 27 LBS. Cervical Mvmt Loss: Flex: MIN Pro: NIL Ext: MOD - PRODUCES L UE SX'S - W Ret: MOD RSB: MOD LSB: MOD - PRODUCES L NECK - W R Rot: MIN - PRODUCES NADIA HAND PINS AND NEEDLES - W L Rot: MOD - INCREASES L NECK AND UE SX'S TO FINGER TIPS - W Plan Plan Plan: HOLD PT PENDING PHYSICIAN RE-ASSESSMENT. Balance/Gait/Functional tests Balance/Special Test Scores Quick DASH Score: 47.7250 Goals Goals Goal 1:: DECREASE C/O L SHLD PAIN BY AT LEAST 50% TO EASE ADL'S. Goal Time Frame: 4-6 Weeks Goal Progress: Progressing w/ rest Goal 2:: PATIENT WILL BE ABLE TO REACH UP AND OUT AT LEAST 140 DEG TO DEMONSTRATE IMPROVED FUNCTION. Goal Time Frame: 4-6 Weeks Goal Progress: Not Progressing Goal 3:: PATIENT WILL HAVE AT LEAST 4-/5 L SHLD STRENGTH ALL PLANES TO DEMONSTRATE IMPROVE FUNCTION Goal Time Frame: 4-6 Weeks Goal Progress: Not Progressing Goal 4:: PATIENT WILL SCORE AT LEAST 10 POINTS BETTER ON QUICK DASH QUESTIONNAIRE Goal Time Frame: 4-6 Weeks Goal Progress: Not Progressing Goal 5:: PATIENT WILL BE INDEP WITH A HEP FOR CONTINUED IMPROVEMENT ONCE FORMAL PHYSICAL THERAPY CONCLUDES. Goal Time Frame: 4-6 Weeks Goal Progress: Progressing Anticipated Interventions Anticipated Interventions Patient/Client Instruction: Educate patient on: Condition, Plan of Care and Risk Factors For the Purpose of:: To improve self management Therapeutic Exercise to Include: Strength training, Flexibilty training, Passive ROM, Active ROM and Scapular Strength/Stabilization For the Purpose of:: To decrease pain, To increase ROM, To improve nutrient delivery to tissue, To improve muscle performance and motor function, To increase tolerance to activity/condition/position and To improve ability of physical actions for home/community/work/leisure Manual Therapy Techniques to Include: Mobilization, Passive ROM and Soft tissue mobilization For the Purpose of:: To decrease pain, To increase ROM and To improve nutrient delivery to tissue Cryotherapy (ice pack, ice massage): Yes Thermo therapy (hot pack): Yes Ultrasound (thermal/non thermal): Yes For the Purpose of:: To decrease pain, To decrease swelling/inflammation and To improve nutrient delivery to tissue Re-Evaluation Ending Re-evaluation ending: Please do not hesitate to contact me at [phone] by phone or if you have questions or concerns regarding this new plan of care! Sincerely, Anum De Dios, PT, Cert MDT
--- NOTE | 2024-08-21 15:22 | HP.PT.NRP ---
Patient Information Patient Information: PHILL GAR was seen in my office for initial evaluation on 02/19/24. The following Plan of Care was established for this patient: POC Established Initial Frequency: 2x /Week Initial Duration: 4-6 Weeks Anticipated Interventions Patient/Client Instruction: Educate patient on: Condition, Plan of Care and Risk Factors For the Purpose of:: To improve self management Therapeutic Exercise to Include: Strength training, Flexibilty training, Passive ROM, Active ROM and Scapular Strength/Stabilization For the Purpose of:: To decrease pain, To increase ROM, To improve nutrient delivery to tissue, To improve muscle performance and motor function, To increase tolerance to activity/condition/position and To improve ability of physical actions for home/community/work/leisure Manual Therapy Techniques to Include: Mobilization, Passive ROM and Soft tissue mobilization For the Purpose of:: To decrease pain, To increase ROM and To improve nutrient delivery to tissue Cryotherapy (ice pack, ice massage): Yes Thermo therapy (hot pack): Yes Ultrasound (thermal/non thermal): Yes For the Purpose of:: To decrease pain, To decrease swelling/inflammation and To improve nutrient delivery to tissue Last Seen Last Seen: This patient was last seen in our office 03/24/24. Pertinent comments regarding their Physical therapy will appear below: It has been my pleasure to see this patient for a total of 9 visits. This patient has not returned to Physical Therapy for more visits and is appropriate to return to MD for further follow-up as needed. At this point I will be discontinuing this patient from physical therapy. I would be happy to see this patient again in the future if found appropriate by the physician. Thank you! Anum De Dios, PT, Cert MDT Balance/Gait/Functional tests Balance/Special Test Scores Quick DASH Score: 47.7225
== END 2024-03-24 19:00 | disposition home or self-care (01) ==
LOC: PT 11:00
PROVIDERS: PCP Family Medicine; Referring Provider Family Medicine; Visit Provider Family Medicine
DX: M25.512 Pain in left shoulder (principal); M77.9 Enthesopathy, unspecified
CPT/HCPCS: 97035; 97110; 97140; 97162; 97530

== ENCOUNTER → 2024-04-03 | Outpatient (CLI) | payer MEDICARE, OTHER, SELFPAY ==
--- NOTE | 2024-04-03 09:56 | RAD_ITS ---
EXAM: XR LEFT SHOULDER COMPLETE, 2 OR MORE VIEWS CLINICAL INDICATION: L shoulder pain. non-improved s/p therapy TECHNIQUE: Two or more views of the left shoulder. COMPARISON: No relevant prior studies available. 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 Degenerative changes in the spine. No acute fracture. No subluxation. Normal alignment. No sclerotic or destructive changes observed. SOFT TISSUES: No significant abnormality. No soft tissue swelling or gas. No radiopaque foreign body. LUNGS AND PLEURAL SPACES: Left side pulmonary granuloma. 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 No acute fracture or dislocation. Electronically Signed: Mariano Ibrahim DO at 0:07 EDT ,
== END | disposition home or self-care (01) ==
LOC: MTRAD 09:56
PROVIDERS: PCP Family Medicine; Referring Provider Family Medicine; Visit Provider Family Medicine
DX: M75.82 Other shoulder lesions, left shoulder (principal)
CPT/HCPCS: 73030

== ENCOUNTER → 2024-04-07 | Outpatient (CLI) | payer MEDICARE, OTHER, SELFPAY ==
--- NOTE | 2024-04-07 07:23 | MRI_ITS ---
STUDY: MRI LEFT SHOULDER REASON FOR EXAM: Female, 64 years old. Left shoulder pain, PT failed, suspect internal derangement. TECHNIQUE: Standardized fat and water weighted pulse sequences were obtained in all 3 orthogonal planes. COMPARISON: Left shoulder radiographs dated 04/03/2024. FINDINGS: There is mild supraspinatus tendinosis without a full-thickness tear. Normal infraspinatus tendon. Normal subscapularis tendon. Normal teres minor tendon. Normal supraspinatus muscle. Normal infraspinatus muscle. Normal subscapularis muscle. Normal teres minor muscle. Normal glenohumeral articulation. There is small enthesopathic subcortical cyst formation of the greater tuberosity of the humeral head. Normal biceps labral complex. Normal intracapsular long biceps tendon. Normal labrum. Normal capsulo-ligamentous complex. Normal rotator interval. There is hypertrophic acromioclavicular arthrosis, with inferior osteophyte formation, with mild effacement of the supraspinatus myotendinous junction (coronal PD series 4 images 10-13). There is a Type II morphology (curved), with a neutral orientation. There is no subacromial-subdeltoid bursal fluid. Normal visualized coracohumeral and coracoacromial ligaments. Normal quadrilateral space. Normal axillary space. Normal deltoid muscle. Normal trapezius muscle. MRI/Upper Ext Joint Only(Routine) IMPRESSION: Mild supraspinatus tendinosis without a full-thickness rotator cuff tear. Hypertrophic acromioclavicular arthrosis, with inferior osteophyte formation, with mild effacement of the supraspinatus myotendinous junction. Electronically Signed: Daniel De Guzman MD at 8:50 EDT ,
== END | disposition home or self-care (01) ==
PROVIDERS: PCP Family Medicine; Referring Provider Family Medicine; Visit Provider Family Medicine
DX: M75.82 Other shoulder lesions, left shoulder (principal)
CPT/HCPCS: 73221

== ENCOUNTER → 2024-04-15 | Outpatient (CLI) | payer MEDICARE, OTHER, SELFPAY ==
[2024-04-15 15:44] LABS: Absolute Lymphocyte Count 1.03 X10^3/uL (0.83-4.51); Absolute Neutrophil Count 2.7 X10^3/uL (2.0-7.7); Basophil# 0.03 X10^3/uL; Basophil% 0.7 % (0-1); Eosinophil# 0.11 X10^3/uL; Eosinophils% 2.6 % (0-5); Hematocrit 48.6 % (37-47); Hemoglobin 15.4 g/dL (12.0-15.0); Lymphocyte # 1.03 X10^3/ul (0.83-4.51); Lymphocyte % 24.6 % (19-41); Mean Corp Hgb Conc 31.7 g/dL (32-36); Mean Corpuscular Hgb 28.1 pg (27.0-32.0); Mean Corpuscular Volume 88.7 fL (81-99); Mean Platelet Vol. 10.9 fl (6.2-12.0); Monocyte# 0.36 X10^3/uL; Monocyte% 8.6 % (0-10); NRBC Flagged by Analyzer 0 % (0-5); Neutrophil # 2.65 X10^3/uL (2.7-7.7); Neutrophil % 63.3 % (47-70); Platelet Count 199 K/mm3 (150-450); RBC Distribution Width CV 12.6 % (11.6-14.6); RBC Distribution Width SD 40.7 fl (35.1-43.9); Red Blood Count 5.48 M/mm3 (4.2-5.4); White Blood Count 4.2 K/mm3 (4.4-11.0)
[2024-04-15 15:59] LABS: ALB/GLOB Ratio 1.2 RATIO (0.9-2.4); AST(SGOT) 20 U/L (15-37); Alanine Aminotransfer ALT/SGPT 30 U/L (13-56); Albumin, Serum 3.8 g/dL (3.2-5.0); Alkaline Phosphatase 70 U/L (45-117); Anion Gap 7 (5-15); BUN 14 mg/dL (7-18); BUN/Creat Ratio 17.4 RATIO (10-20); Calcium,Total 9.3 mg/dL (8.5-10.1); Chloride 107 mmol/L (98-107); EST Glomerular Filtration Rate 76 mL/min (>60); Est Glom Filt Rate - Afr Amer 92 mL/min (>60); Globulin 3.3 g/dL (2.2-4.2); Glucose 109 mg/dL (74-106); Potassium 4.1 mmol/L (3.5-5.1); Protein, Total 7.1 g/dL (6.4-8.2); Sodium Level 140 mmol/L (136-145)
[2024-04-15 16:07] LABS: Hemoglobin A1c 5.9 % (3.8-5.6)
== END | disposition home or self-care (01) ==
LOC: MFPLAB 11:22
PROVIDERS: PCP Family Medicine; Visit Provider Family Medicine
DX: K76.0 Fatty (change of) liver, not elsewhere classified (principal); R73.03 Prediabetes
CPT/HCPCS: 36415; 80053; 83036; 85025

== ENCOUNTER → 2024-06-25 | Outpatient (CLI) | payer MEDICARE, OTHER, SELFPAY ==
[2024-06-25 12:26] LABS: Absolute Lymphocyte Count 1.63 X10^3/uL (0.83-4.51); Absolute Neutrophil Count 4.6 X10^3/uL (2.0-7.7); Basophil# 0.04 X10^3/uL; Basophil% 0.6 % (0-1); Eosinophil# 0.08 X10^3/uL; Eosinophils% 1.2 % (0-5); Hematocrit 46.2 % (37-47); Hemoglobin 15.1 g/dL (12.0-15.0); Lymphocyte # 1.63 X10^3/ul (0.83-4.51); Mean Corp Hgb Conc 32.7 g/dL (32-36); Mean Corpuscular Hgb 28.3 pg (27.0-32.0); Mean Corpuscular Volume 86.7 fL (81-99); Mean Platelet Vol. 10.7 fl (6.2-12.0); Monocyte# 0.46 X10^3/uL; Monocyte% 6.8 % (0-10); NRBC Flagged by Analyzer 0 % (0-5); Neutrophil # 4.56 X10^3/uL (2.7-7.7); Neutrophil % 67.1 % (47-70); Platelet Count 197 K/mm3 (150-450); RBC Distribution Width CV 12.6 % (11.6-14.6); RBC Distribution Width SD 39.8 fl (35.1-43.9); Red Blood Count 5.33 M/mm3 (4.2-5.4); White Blood Count 6.8 K/mm3 (4.4-11.0)
== END | disposition home or self-care (01) ==
LOC: MFPLAB 10:02
PROVIDERS: PCP Family Medicine; Visit Provider Family Medicine
DX: D75.1 Secondary polycythemia (principal); D72.819 Decreased white blood cell count, unspecified
CPT/HCPCS: 36415; 85025

== ENCOUNTER → 2024-09-12 | Outpatient (CLI) | payer MEDICARE, OTHER, SELFPAY ==
[2024-09-12 12:10] LABS: Absolute Lymphocyte Count 1.18 X10^3/uL (0.83-4.51); Absolute Neutrophil Count 2.7 X10^3/uL (2.0-7.7); Basophil# 0.04 X10^3/uL; Basophil% 0.9 % (0-1); Eosinophil# 0.06 X10^3/uL; Eosinophils% 1.4 % (0-5); Hematocrit 49.8 % (37-47); Hemoglobin 16.7 g/dL (12.0-15.0); Lymphocyte # 1.18 X10^3/ul (0.83-4.51); Lymphocyte % 27.4 % (19-41); Mean Corp Hgb Conc 33.5 g/dL (32-36); Mean Corpuscular Volume 89.4 fL (81-99); Mean Platelet Vol. 10.4 fl (6.2-12.0); Monocyte# 0.27 X10^3/uL; Monocyte% 6.3 % (0-10); NRBC Flagged by Analyzer 0 % (0-5); Neutrophil # 2.74 X10^3/uL (2.7-7.7); Neutrophil % 63.5 % (47-70); Platelet Count 207 K/mm3 (150-450); RBC Distribution Width CV 13.1 % (11.6-14.6); RBC Distribution Width SD 42.8 fl (35.1-43.9); Red Blood Count 5.57 M/mm3 (4.2-5.4); White Blood Count 4.3 K/mm3 (4.4-11.0)
[2024-09-12 12:46] LABS: Microalbumin,Random Urine 14.7 mg/L (NO RANGE EST.); Microalbumin:Creatinine Ratio 13.4 mg/g CRE (<30 mg/g CRE)
[2024-09-12 15:00] LABS: ALB/GLOB Ratio 1.3 RATIO (0.9-2.4); AST(SGOT) 26 U/L (15-37); Alanine Aminotransfer ALT/SGPT 35 U/L (13-56); Albumin, Serum 4.6 g/dL (3.2-5.0); Alkaline Phosphatase 68 U/L (45-117); Anion Gap 6 (5-15); BUN 15 mg/dL (7-18); BUN/Creat Ratio 16.3 RATIO (10-20); Chloride 106 mmol/L (98-107); Creatinine, Serum 0.92 mg/dL (0.55-1.02); EST Glomerular Filtration Rate 65 mL/min (>60); Est Glom Filt Rate - Afr Amer 78 mL/min (>60); Globulin 3.5 g/dL (2.2-4.2); Glucose 98 mg/dL (74-106); Potassium 3.6 mmol/L (3.5-5.1); Protein, Total 8.1 g/dL (6.4-8.2); Sodium Level 140 mmol/L (136-145)
== END | disposition home or self-care (01) ==
LOC: MFPLAB 10:57
PROVIDERS: PCP Family Medicine; Referring Provider Family Medicine; Visit Provider Family Medicine
DX: I10 Essential (primary) hypertension (principal); K76.0 Fatty (change of) liver, not elsewhere classified; R00.2 Palpitations
CPT/HCPCS: 36415; 80053; 82043; 82570; 83036; 85025

== ENCOUNTER → 2024-10-24 | Outpatient (CLI) | payer MEDICARE, OTHER, SELFPAY ==
--- NOTE | 2024-10-24 10:42 | US_ITS ---
STUDY: ABDOMINAL ULTRASOUND REASON FOR EXAM: Female, 64 years old. POLYCYTHEMIA TECHNIQUE: Transabdominal ultrasound was performed with real-time and static morales scale imaging. TECHNICAL QUALITY: Limited. Examination limited by bowel gas. COMPARISON: CT scan 04/08/2016. FINDINGS: Liver: The liver measures 15.4 cm. There is increased echogenicity consistent with fatty infiltration. The bile ducts are within normal limits. There is hepatic color flow. The direction of portal flow is hepatopetal. There is no demonstrated mass lesion. Portal vein measurement: Gallbladder: The patient is status post cholecystectomy. Common Bile Duct (C.B.D.): The common bile duct measures 5 mm. Pancreas: Normal size of the head, body of the pancreas. Tail of the pancreas is suboptimally seen. There is normal echogenicity of the pancreas. There is no demonstrated pancreatic mass or cyst. Spleen: Normal size of the spleen. The spleen measures 12.3 cm. Right Kidney: Normal size of the right kidney. The right kidney measures 9.4 cm. Normal renal cortex. The right cortex measures 1.0 cm. There is no demonstrated renal mass or cyst. There is no right hydronephrosis. Left Kidney: Normal size of the left kidney. The left kidney measures 10.3 cm. Normal renal cortex. The left cortex measures 1.1 cm. There is no demonstrated renal mass or cyst. There is no left hydronephrosis. Aorta: 2.0 cm I.V.C.: The IVC is patent. There is no ascites. US/Abdomen Complete IMPRESSION: Limited as above. No definite acute or significant abnormality seen. Electronically Signed: Johny Yeager MD at 16:18 EST ,
== END | disposition home or self-care (01) ==
LOC: US 10:42
PROVIDERS: PCP Family Medicine; Referring Provider Internal Medicine Medical Oncology; Visit Provider Internal Medicine Medical Oncology
DX: D75.1 Secondary polycythemia (principal)
CPT/HCPCS: 76700

== ENCOUNTER → 2025-05-01 | Outpatient (CLI) | payer MEDICARE, OTHER, SELFPAY ==
--- NOTE | 2025-05-01 10:23 | BI_ITS ---
EXAM: SCRN MAMM (CAD)W/TINY BILAT DATE: 05/01/2025 CLINICAL HISTORY: F, Age 65 y/o , SCREENING TECHNIQUE: SCRN MAMM (CAD)W/TINY BILAT COMPARISON: Prior exam(s) dated 05/08/2023, 12/22/2020, 11/05/2019. FINDINGS: TISSUE DENSITY: There are scattered areas of fibroglandular density. Bilateral Breast Mammographic Findings: There is an asymmetry with associated distortion in the central left breast at middle depth visualized on the CC view. No significant masses, calcifications or other abnormalities are identified in the right breast. BI/SCRN MAMM (CAD)W/TINY BILAT IMPRESSION: The asymmetry with associated distortion in the central left breast requires fu rther evaluation. Recommend diagnostic mammogram of the left breast and ultrasound on the day of diagnostic if indicated. OVERALL FINAL ASSESSMENT BI-RADS 0: INCOMPLETE - NEED ADDITIONAL IMAGING EVALUATION. RECOMMENDATION: Additional Views obtained/call backs A letter with findings and recommendations will be mailed to the patient. Reading Location: [id number]
--- OUTSIDE RECORDS SUMMARY | 2025-05-01 12:54 | XMS RPT_ITS | CCD ---
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 Micheal Sierra Primary Care Provider Dr. Micheal Sierra Referring Provider [phone] Ivis Menjivar Attending Provider Micheal Sierra MD Primary Care Provider MICHEAL SIERRA Primary Care Unavailable ИВАН BAL Attending Unavailable Cari Ceja Attending Unavailable Rigo, Micheal Primary Care Unavailable Sam Venegas Attending Unavailable Sam Venegas Referring Unavailable Sierra, Micheal Primary Care Unavailable Doug SYRUP BLENDER, Emma Attending Unavailable Doug SYRUP BLENDER, Emma Referring Unavailable Sierra, Micheal Primary Care Unavailable Prabisi, Sam Attending Unavailable Prabisi, Sam Referring Unavailable Sierra, Micheal Primary Care Unavailable Prabisi, Sam Attending Unavailable Sierra, Micheal Primary Care Unavailable Sierra, Micheal Referring Unavailable Prabisi, Sam Attending Unavailable Sierra, Micheal Referring Unavailable Sierra, Micheal Primary Care Unavailable Sierra, Micheal Attending Unavailable Sierra, Micheal Primary Care Unavailable Sierra, Micheal Attending Unavailable Sierra, Micheal Referring Unavailable Sierra, Micheal Primary Care Unavailable Allergies Allergy Classification Reported Allergen(s) Allergy Type Date of Onset Reaction(s) Facility (3 sources) Sulfamethoxazole / Trimethoprim; Translations: [SULFAMETHOXAZOLE-TR IMETHOPRIM] Drug Allergy 2 [facility] (4 sources) Metoclopramide Drug Allergy 1 [facility] (4 sources) Sulfamethoxazole Drug Allergy 1 [facility] (4 sources) Trimethoprim Drug Allergy 1 [facility] (2 sources) Amoxicillin; Translations: [AMOXICILLIN] Drug Allergy 3 [facility] (1 source) Amoxicillin Drug Allergy 5 [facility] (1 source) Escitalopram Drug Allergy 5 [facility] (1 source) Metoclopramide Drug Allergy 5 [facility] (1 source) PARoxetine Drug Allergy 5 [facility] (1 source) Sulfamethoxazole Drug Allergy 5 [facility] (1 source) Trimethoprim Drug Allergy 5 [facility] Medications Current Medications Medication Drug Class(es) Dates [...] days. 14 each 0 02/26/2023 03/05/2023 Active cholecalciferol 0.05 mg chewable tablet (4 sources) Vitamin D Start: 02-13-2018 take 4000 [IU] by mouth once daily Cholecalciferol (Vitamin D3) Active 4000 UNIT PO DAILY February 13, 2018 12:00am empagliflozin 25 mg oral tablet (4 sources) Sodium-Glucose Cotransporter 2 Inhibitor Start: 02-18-2021 take 1 tablet by mouth once daily Empagliflozin (Jardiance) 25 mg Tablet Active 25 MG PO DAILY February 18, 2021 12:00am FLUoxetine 20 mg oral tablet (7 sources) Serotonin Reuptake Inhibitor Start: 04-07-2016 take 30-40 mg by mouth once daily Fluoxetine Active 30 - 40 MG PO DAILY April 07, 2016 12:00am End: 12-23-2021 fluoxetine HCl (PROZAC ORAL) Take by mouth. 0 12/23/2021 Discontinued gabapentin 600 mg oral tablet (7 sources) Anti-epileptic Agent Start: 02-18-2021 take 600 mg by mouth at bedtime Gabapentin Active 600 MG PO AT BEDTIME February 18, 2021 12:00am End: 12-23-2021 GABAPENTIN ORAL Take by mout h. 0 12/23/2021 Discontinued lisinopril 20 mg oral tablet (4 sources) Angiotensin Converting Enzyme Inhibitor Start: 04-07-2016 take 10 mg by mouth once daily Lisinopril Active 10 MG PO DAILY April 07, 2016 12:00am ondansetron 4 mg disintegrating oral tablet (4 sources) Serotonin-3 Receptor Antagonist Start: 05-15-2018 take 4 mg by mouth every eight hours as needed Ondansetron Active 4 MG PO EVERY 8 HOURS NEEDED May 15, 2018 12:00am pantoprazole 40 mg delayed release oral tablet (3 sources) Proton Pump Inhibitor Start: 05-19-2022 take 40 mg by mouth once daily Pantoprazole Active 40 MG PO DAILY May 19, 2022 12:00am phenazopyridine hydrochloride 100 mg oral tablet (5 sources) Start: 02-26-2023 End: 02-28-2023 take 1 tablet by mouth three times daily for muscle spasms phenazopyridine (PYRIDIUM) 100 mg tablet Indications: Dysuria , Urinary tract infection with hematuria, site unspecified Take 1 tablet (100 mg total) by mouth 3 (three) times a day if needed for bladder spasms for up to 2 days. 6 each 0 02/26/2023 02/28/2023 Active Start: 10-10-2021 End: 05-19-2022 take 1 tablet by mouth three times daily Phenazopyridine (Pyridium) 200 mg tablet Discontinued 200 MG PO THREE TIMES A DAY October 10, 2021 1:00am May 19, 2022 1:54pm quinapril 20 mg oral tablet (3 sources) Angiotensin Converting Enzyme Inhibitor Start: 11-14-2021 take 1 tablet by mouth once daily quinapriL (ACCUPRIL) 20 mg tablet Take 20 mg by mouth 1 (one) time each day. 0 11/14/2021 Active End: 12-23-2021 quinapril HCl (QUINAPRIL ORA L) Take by mouth. 0 12/23/2021 Discontinued triamcinolone acetonide 0.25 mg/ml topical cream (2 sources) Corticosteroid Start: 11-14-2021 triamcinolone (KENALOG) 0.025 % cream APPLY THINLY TWICE DAILY UNTIL IMPROVED, THEN AT BEDTIME FOR 1 WEEK, THEN TWICE WEEKLY TO PREVENT 0 11/14/2021 Active Completed/Discontinued Medications Medication Drug Class(es) Dates Sig (Normalized) Sig (Original) ciprofloxacin 500 mg oral tablet (4 sources) Quinolone Antimicrobial Start: 10-10-2021 End: 05-19-2022 take 500 mg by mouth twice daily Ciprofloxacin Hcl Discontinued 500 MG PO TWICE A DAY October 10, 2021 1:00am May 19, 2022 1:54pm doxycycline hyclate 100 mg delayed release oral tablet (4 sources) Tetracycline-class Drug Start: 02-18-2021 End: 05-19-2022 take 100 mg by mouth twice daily Doxycycline Hyclate Discontinued 100 MG PO TWICE A DAY February 18, 2021 12:00am May 19, 2022 1:54pm predniSONE 20 mg oral tablet (4 sources) Start: 02-18-2021 End: 05-19-2022 take 40 mg by mouth once daily Prednisone Discontinued 40 MG PO DAILY February 18, 2021 12:00am May 19, 2022 1:53pm Problems Active Problems Problem Classification Problem Date Documented Da te Episodic/Chronic Diabetes mellitus without complication (4 sources) Type 2 diabetes mellitus; Translations: [Type 2 diabetes mellitus without complications] 02-20-2018 Chronic Esophageal disorders (4 sources) Gastroesophageal reflux disease; Translations: [Gastro-esophageal reflux disease without esophagitis] Chronic Essential hypertension (5 sources) Hypertensive disorder; Translations: [Essential (primary) hypertension] Onset: 4 02-20-2018 Chronic Mood disorders (4 sources) Depressive disorder; Translations: [Depression] 02-20-2018 Chronic Other and unspecified benign neoplasm (4 sources) History of polyp of colon; Translations: [Personal history of colonic polyps] 02-23-2021 Episodic Other gastrointestinal disorders (3 sources) Dysphagia; Translations: [Dysphagia, unspecified] 05-19-2022 Episodic Other gastrointestinal disorders (1 source) Dysphagia, unspecified; Translations: [Dysphagia, unspecified] Episodic Other screening for suspected conditions (not mental disorders or infectious disease) (1 source) Encounter for screening mammogram for malignant neoplasm of breast; Translations: [Encounter for screening mammogram for malignant neoplasm of breast] Onset: 5 Episodic Past or Other Problems Problem Classification Problem Date Documented Da te Episodic/Chronic Genitourinary symptoms and ill-defined conditions (8 sources) Dysuria; Translations: [Painful micturition, unspecified] Onset: 02-26-2023 Episodic Other hematologic conditions (2 sources) Secondary polycythemia; Translations: [Secondary polycythemia] Onset: 11-03-2024 Episodic Urinary tract infections (10 sources) Infective cystitis; Translations: [Cystitis, unspecified without hematuria] Onset: 12-23-2021 Episodic Results Test Name Value Interpretation Reference Range Facility Oncology Visit Reporton 10-16 Oncology Visit Report [facility] [place] [address] OFFICE VISIT Date of Service: 11/03/24 0853 MR#: [id number] Acct: [id number] Name: LETICIA GAR Rep #: [id number] : 1960 From: Sam Venegas MD Age/Sex: 64/F Location: [facility] Status: Signed HPI Subjective Date of Service 11/03/24 Chief Complaint F/u for Polycythemia. History of Present Illness 64y.o.woman was found to have persistently high HGB level and referred for further evaluation. Denies fever, weight loss or night sweats, family history of blood disease. She had Abdominal US and blood work done, comes for follow up. Feels well. [facility] Medical History Psoriatic arthritis TMJ (dislocation of temporomandibular joint) Erythrocytosis Leukopenia Elevated hemoglobin Psoriasis Animal dander allergy Dust allergy Allergy to mold Allergic rhinitis Vitamin D deficiency Seborrheic keratosis Verruca Osteoporosis History of melanoma Urinary tract infection with hematuria Rash Wears contact lenses Wears glasses Post-menopausal Anxiety Depression Diabetes Kidney stones History of diverticulosis Hx of irritable bowel syndrome Former smoker Leg cramps Hx of exercise stress test Hypertension Restless legs Head concussion Injury of head and neck Surgical History Melanoma Hx of colonoscopy ( 02/20/18) Hx of oophorectomy Hx of oophorectomy Hx of hysterectomy Hx of palate surgery Hx of foot surgery Hx laparoscopic cholecystectomy History of wisdom tooth extraction Hx of tonsillectomy Hx of sinus surgery Family History Other Cancer Diabetes Heart disease Hypertension Social History Smoking Status: Former smoker Tobacco: How many years used: 6 alcohol intake: never substance use type: does not use ROS Constitutional Constitutional: Reports systems reviewed and no addt'l complaints, except as documented Eyes Eyes: Reports systems reviewed and no addt'l complaints, except as documented ENT HEENT: Reports systems reviewed and no addt'l complaints, except as documented Cardiovascular Cardiovascular: Reports systems reviewed and no addt'l complaints, except as documented Respiratory/Chest Respiratory/Chest: Reports systems reviewed and no addt'l complaints, except as documented Gastrointestinal Gastrointestinal: Reports systems reviewed and no addt'l complaints, except as documented Genitourinary Genitourinary: Reports systems reviewed and no addt'l complaints, except as documented Musculoskeletal Musculoskeletal: Reports systems reviewed and no addt'l complaints, except as documented Integumentary Integumentary: Reports systems reviewed and no addt'l complaints, except as documented Neurologic Neurologic: Reports systems reviewed and no addt'l complaints, except as documented Psychiatric Psychiatric: Reports systems reviewed and no addt'l complaints, except as documented Endocrine Endocrinology: Reports systems reviewed and no addt'l complaints, except as documented Hematologic/Lymphatic Hematologic/Lymphatic : Reports systems reviewed and no addt'l complaints, except as documented Allergic/Immunologic Allergic/Immunologic: Reports systems reviewed and no addt'l complaints, except as documented Intake Vital Signs 10/22/24 15:37 11/03/24 08:55 Height 5 ft 4 in 5 ft 4 in Weight: 65.459 kg BMI 24.7 BP 158/84 H Blood Pressure Location Rt brachial Position Sitting Respiration 18 Pulse 74 Pulse Source Monitor Temp 97.2 F L Temperature Source Temporal Artery Pulse Oximetry (%) 96 Oxygen Delivery Method room air Intake Is patient in pain?: No Allergies sulfamethoxazole (From Bactrim) Allergy (Verified 11/03/24 08:56) Hives trimethoprim (From Bactrim) Allergy (Verified 11/03/24 08:56) Hives amoxicillin Adverse Reaction (Unknown, Verified 11/03/24 08:56) Diarrhea escitalopram (From Lexapro) Adverse Reaction (Unknown, Verified 11/03/24 08:56) weight gain paroxetine (From Paxil) Adverse Reaction (Unknown, Verified 11/03/24 08:56) weight gain metoclopramide (From Reglan) Adverse Reaction (Verified 11/03/24 08:56) restless Medications ???Medication ???Instructions ???Recorded ???Confirmed ???Type gabapentin 600 mg tablet 600 mg PO QHS 02/18/21 11/03/24 History dapagliflozin propanediol 10 mg 10 mg PO QAM 09/26/24 11/03/24 History tablet (Farxiga) diclofenac sodium 1 % topical gel 2 g topical ONCE 09/26/24 11/03/24 History ibandronate 150 mg tablet 150 mg PO QMONTH 09/26/24 11/03/24 History indapamide 1.25 mg tablet 1.25 mg PO QAM 09/26/24 (more content not included)... Normal [facility] Abdomen Completeon Abdomen Complete [facility] [address] [place], [place] [id number] Abdomen Complete MR#: [id number] Acct: [id number] Name: LETICIA GAR Rep #: [id number] : 1960 F 64 From: Johny paez MD PCP: Dr. Micheal Sierra MD Status: [facility] CLI Study: Abdomen Complete Date of Exam: 10/24/24 Exam# [id number] Ordering Dr: Sam Venegas MD [id number] STUDY: ABDOMINAL ULTRASOUND REASON FOR EXAM: Female, 64 years old. POLYCYTHEMIA TECHNIQUE: Transabdominal ultrasound was performed with real-time and static morales scale imaging. TECHNICAL QUALITY: Limited. Examination limited by bowel gas. COMPARISON: CT scan 04/08/2016. FINDINGS: Liver: The liver measures 15.4 cm. There is increased echogenicity consistent with fatty infiltration. The bile ducts are within normal limits. There is hepatic color flow. The direction of portal flow is hepatopetal. There is no demonstrated mass lesion. Portal vein measurement: Gallbladder: The patient is status post cholecystectomy. Common Bile Duct (C.B.D.): The common bile duct measures 5 mm. Pancreas: Normal size of the head, body of the pancreas. Tail of the pancreas is suboptimally seen. There is normal echogenicity of the pancreas. There is no demonstrated pancreatic mass or cyst. Spleen: Normal size of the spleen. The spleen measures 12.3 cm. Right Kidney: Normal size of the right kidney. The right kidney measures 9.4 cm. Normal renal cortex. The right cortex measures 1.0 cm. There is no demonstrated renal mass or cyst. There is no right hydronephrosis. Left Kidney: Normal size of the left kidney. The left kidney measures 10.3 cm. Normal renal cortex. The left cortex measures 1.1 cm. There is no demonstrated renal mass or cyst. There is no left hydronephrosis. Aorta: 2.0 cm I.V.C.: The IVC is patent. There is no ascites. US/Abdomen Complete IMPRESSION: Limited as above. No definite acute or significant abnormality seen. Electronically Signed: Johny Yeager MD at 16:18 EST , CC: Dr. Micheal Sierra MD; Dr. Sam Venegas MD Product Marketing Director: Signed Normal [facility] Erythropoietinon 10-24-2024 ERYTHROPOIETIN 15.1 mIU/mL Normal 2.6-18.5 [facility] Comment on above: Result Comment: [employer] UniCel DxI 800 Immunoassay System Values obtained with different assay methods or kits cannot be used interchangeably. Results cannot be interpreted as absolute evidence of the presence or absence of malignant disease. Performed at: [address] [id number] Icing Mixer: Amaury Dean PhD, Phone: [phone] Performed By: #### L 503.0105, L504.2610, L101.9900, L100.0100, L500.4050, L100.9950, L501.6710, L3100.1350, L400.0001, L506.0250 ####[facility] [id number] [place], [place], [phone]([phone]) CBC W/Diff, Automatedon 01-0 8-2024 Absolute Lymph 1.32 X10 3/uL Normal 0.83-4.51 [facility] Comment on above: Performed By: #### L 503.0105, L504.2610, L101.9900, L100.0100, L500.4050, L100.9950, L501.6710, L3100.1350, L400.0001, L506.0250 #### [facility] [address] [place], [place], [id number] (792) Absolute Neut 3.5 X10 3/uL Normal 2.0-7.7 [facility] Comment on above: Performed By: #### L 503.0105, L504.2610, L101.9900, L100.0100, L500.4050, L100.9950, L501.6710, L3100.1350, L400.0001, L506.0250 #### [facility] [address] [place], [place], [id number] (053) Basophils/100 WBC (Bld) 0.9 % Normal 0-1 [facility] Comment on above: Performed By: #### L 503.0105, L504.2610, L101.9900, L100.0100, L500.4050, L100.9950, L501.6710, L3100.1350, L400.0001, L506.0250 #### [facility] [address] [place], [address] ([phone] Eosinophils/100 WBC (Bld) 2.4 % Normal 0-5 [facility] Comment on above: Performed By: #### L 503.0105, L504.2610, L101.9900, L100.0100, L500.4050, L100.9950, L501.6710, L3100.1350, L400.0001, L506.0250 #### [facility] [address] [place], [place], [id number] Erythrocyte distribution width (RBC) [Ratio] 12.4 % Normal 11.6-14.6 [facility] Comment on above: Performed By: #### L 503.0105, L504.2610, L101.9900, L100.0100, L500.4050, L100.9950, L501.6710, L3100.1350, L400.0001, L506.0250 #### [facility] [address] [place], [address] Hematocrit (Bld) [Volume fraction] 42.7 % Normal 37-47 [facility] Comment on above: Performed By: #### L 503.0105, L504.2610, L101.9900, L100.0100, L500.4050, L100.9950, L501.6710, L3100.1350, L400.0001, L506.0250 #### [facility] [address] [facility] [place], [address] Hemoglobin (Bld) [Mass/Vol] 14.7 g/dL Normal 12.0-15.0 [facility] Comment on above: Performed By: #### L 503.0105, L504.2610, L101.9900, L100.0100, L500.4050, L100.9950, L501.6710, L3100.1350, L400.0001, L506.0250 #### [facility] [address] [place], [address] IG% 0.200 Normal 0.0-0.9 [facility] Comment on above: Result Comment: IG% - Immature Granulocytes (promyelocytes, myelocytes and metamyelocytes) > 1% indicates that a LEFT SHIFT is Present. Performed By: #### L 503.0105, L504.2610, L101.9900, L100.0100, L500.4050, L100.9950, L501.6710, L3100.1350, L400.0001, L506.0250 #### [facility] [address] [facility] [place], [address] Lymphocytes/100 WBC (Bld) 23.9 % Normal 19-41 [facility] Comment on above: Performed By: #### L 503.0105, L504.2610, L101.9900, L100.0100, L500.4050, L100.9950, L501.6710, L3100.1350, L400.0001, L506.0250 #### [facility] [address] [facility] [place], [address] MCH (RBC) [Entitic mass] 29.9 pg Normal 27.0-32.0 [facility] Comment on above: Performed By: #### L 503.0105, L504.2610, L101.9900, L100.0100, L500.4050, L100.9950, L501.6710, L3100.1350, L400.0001, L506.0250 #### [facility] [address] [place] [place], [address] MCHC (RBC) [Mass/Vol] 34.4 g/dL Normal 32-36 [facility] Comment on above: Performed By: #### L 503.0105, L504.2610, L101.9900, L100.0100, L500.4050, L100.9950, L501.6710, L3100.1350, L400.0001, L506.0250 #### [facility] [address] [facility] [place], [address] MCV (RBC) [Entitic vol] 86.8 fL Normal 81-99 [facility] Comment on above: Performed By: #### L 503.0105, L504.2610, L101.9900, L100.0100, L500.4050, L100.9950, L501.6710, L3100.1350, L400.0001, L506.0250 #### [facility] [address] [place] [place], [address] Monocytes/100 WBC (Bld) 9.0 % Normal 0-10 [facility] Comment on above: Performed By: #### L 503.0105, L504.2610, L101.9900, L100.0100, L500.4050, L100.9950, L501.6710, L3100.1350, L400.0001, L506.0250 #### [facility] [address] [facility] [place], [place], [id number] (357) Neutrophils/100 WBC (Bld) 63.6 % Normal 47-70 [facility] Comment on above: Performed By: #### L 503.0105, L504.2610, L101.9900, L100.0100, L500.4050, L100.9950, L501.6710, L3100.1350, L400.0001, L506.0250 #### [facility] [address] [facility] [address] [place], [place], [id number] (521) Nucleated RBC (Bld) [#/Vol] 0 10*3/uL Normal 0-5 [facility] Comment on above: Performed By: #### L 503.0105, L504.2610, L101.9900, L100.0100, L500.4050, L100.9950, L501.6710, L3100.1350, L400.0001, L506.0250 #### [facility] [address] [place], [address] Platelet mean volume (Bld) [Entitic vol] 10.7 fL Normal 6.2-12.0 [facility] Comment on above: Performed By: #### L 503.0105, L504.2610, L101.9900, L100.0100, L500.4050, L100.9950, L501.6710, L3100.1350, L400.0001, L506.0250 #### [facility] [address] [place], [address] Platelets (Bld) [#/Vol] 190 10*3/uL Normal 150-450 [facility] Comment on above: Performed By: #### L 503.0105, L504.2610, L101.9900, L100.0100, L500.4050, L100.9950, L501.6710, L3100.1350, L400.0001, L506.0250 #### [facility] [address] [place], [address] RBC (Bld) [#/Vol] 4.92 10*6/uL Normal 4.2-5.4 [facility] Comment on above: Performed By: #### L 503.0105, L504.2610, L101.9900, L100.0100, L500.4050, L100.9950, L501.6710, L3100.1350, L400.0001, L506.0250 #### [facility] [address] [place], [address] RDW SD 39.3 fl Normal 35.1-43.9 [facility] Comment on above: Performed By: #### L 503.0105, L504.2610, L101.9900, L100.0100, L500.4050, L100.9950, L501.6710, L3100.1350, L400.0001, L506.0250 #### [facility] [address] [place], [address] WBC (Bld) [#/Vol] 5.5 10*3/uL Normal 4.4-11.0 [facility] Comment on above: Performed By: #### L 503.0105, L504.2610, L101.9900, L100.0100, L500.4050, L100.9950, L501.6710, L3100.1350, L400.0001, L506.0250 #### [facility] [address] [facility] [address] [place], [place], [id number] CRPon 10-22-2024 C-REACTIVE PROT < 2.90 Normal 0.0-3.0 [facility] Comment on above: Order Comment: NORMAO WN1N Result Comment: C-Re active Protein (CRP) provides useful information for the diagnosis, therapy and monitoring of inflammatory processes and associated diseases. For the evaluation of Relative Risk for Cardiovascular Disease, a High Sensitivity CRP (HSCRP) should be ordered. Performed By: #### L 503.0105, L504.2610, L101.9900, L100.0100, L500.4050, L100.9950, L501.6710, L3100.1350, L400.0001, L506.0250 ####[facility] [id number] [place], [address] Comprehensive Metabolic Prof ilon 10-22-2024 Albumin [Mass/Vol] 4.0 g/dL Normal 3.2-5.0 [facility] Comment on above: Order Comment: NORMAO WN 1 N Performed By: #### L 503.0105, L504.2610, L101.9900, L100.0100, L500.4050, L100.9950, L501.6710, L3100.1350, L400.0001, L506.0250 #### [facility] [address] [address] [place], [place], [id number] Albumin/Globulin [Mass ratio] 1.2 {ratio} Normal 0.9-2.4 [facility] Comment on above: Order Comment: NORMAO WN 1 N Performed By: #### L 503.0105, L504.2610, L101.9900, L100.0100, L500.4050, L100.9950, L501.6710, L3100.1350, L400.0001, L506.0250 #### [facility] [address] [place], [address] ALK P 57 U/L Normal 45-117 [facility] Comment on above: Order Comment: UNKNO WN 1 N Performed By: #### L 503.0105, L504.2610, L101.9900, L100.0100, L500.4050, L100.9950, L501.6710, L3100.1350, L400.0001, L506.0250 #### [facility] [address] [place], [address] ALT [Catalytic activity/Vol] 28 U/L Normal 13-56 [facility] Comment on above: Order Comment: UNKNO WN 1 N Performed By: #### L 503.0105, L504.2610, L101.9900, L100.0100, L500.4050, L100.9950, L501.6710, L3100.1350, L400.0001, L506.0250 #### [facility] [address] [place], [place], [id number] AST [Catalytic activity/Vol] 18 U/L Normal 15-37 [facility] Comment on above: Order Comment: UNKNO WN 1 N Performed By: #### L 503.0105, L504.2610, L101.9900, L100.0100, L500.4050, L100.9950, L501.6710, L3100.1350, L400.0001, L506.0250 #### [facility] [address] [facility] [address] [place], [place], [id number] Bilirubin [Mass/Vol] 0.50 mg/dL Normal 0.20-1.00 [facility] Comment on above: Order Comment: UNKNO WN 1 N Result Comment: For patients on eltrombopag therapy, use of Dimension [place] TBIL is not recommended. Performed By: #### L 503.0105, L504.2610, L101.9900, L100.0100, L500.4050, L100.9950, L501.6710, L3100.1350, L400.0001, L506.0250 #### [facility] [address] [place], [address] BUN/CRE 19.1 RATIO Normal 10-20 [facility] Comment on above: Order Comment: UNKNO WN 1 N Performed By: #### L 503.0105, L504.2610, L101.9900, L100.0100, L500.4050, L100.9950, L501.6710, L3100.1350, L400.0001, L506.0250 #### [facility] [address] [place], [address] CA,Total 8.8 mg/dL Normal 8.5-10.1 [facility] Comment on above: Order Comment: UNKNO WN 1 N Performed By: #### L 503.0105, L504.2610, L101.9900, L100.0100, L500.4050, L100.9950, L501.6710, L3100.1350, L400.0001, L506.0250 #### [facility] [address] [place], [address] Chloride [Moles/Vol] 109 mmol/L High 98-107 [facility] Comment on above: Order Comment: UNKNO WN 1 N Performed By: #### L 503.0105, L504.2610, L101.9900, L100.0100, L500.4050, L100.9950, L501.6710, L3100.1350, L400.0001, L506.0250 #### [facility] [address] [place], [address] CO2 [Moles/Vol] 28.0 mmol/L Normal 21.0-32.0 [facility] Comment on above: Order Comment: UNKNO WN 1 N Performed By: #### L 503.0105, L504.2610, L101.9900, L100.0100, L500.4050, L100.9950, L501.6710, L3100.1350, L400.0001, L506.0250 #### [facility] [address] [place], [place], [phone] ([phone] Creatinine [Mass/Vol] 0.78 mg/dL Normal 0.55-1.02 [facility] Comment on above: Order Comment: UNKNO WN 1 N Result Comment: The validity of the calculated GFR GFRAA in patients over 70 years has not been determined. Clinical correlation is essential. Performed By: #### L 503.0105, L504.2610, L101.9900, L100.0100, L500.4050, L100.9950, L501.6710, L3100.1350, L400.0001, L506.0250 #### [facility] [address] [place], [place], [phone] (025) EST GFR - AA 94 mL/min Normal >60 [facility] Comment on above: Order Comment: UNKNO WN 1 N Result Comment: Afri can French GFR Calc Performed By: #### L 503.0105, L504.2610, L101.9900, L100.0100, L500.4050, L100.9950, L501.6710, L3100.1350, L400.0001, L506.0250 #### [facility] [address] [place], [place], [phone] (954) GAP 3 Low 5-15 [facility] Comment on above: Order Comment: UNKNO WN 1 N Performed By: #### L 503.0105, L504.2610, L101.9900, L100.0100, L500.4050, L100.9950, L501.6710, L3100.1350, L400.0001, L506.0250 #### [facility] [address] [place], [place], [phone] (832) GFR/1.73 sq M.predicted among non-blacks MDRD (S/P/Bld) [Vol rate/Area] 78 mL/min/{1.73_m2} Normal >60 [facility] Comment on above: Order Comment: UNKNO WN 1 N Result Comment: Non- GFR Calc Performed By: #### L 503.0105, L504.2610, L101.9900, L100.0100, L500.4050, L100.9950, L501.6710, L3100.1350, L400.0001, L506.0250 #### [facility] [address] [place], [address] Globulin (S) [Mass/Vol] 3.2 g/dL Normal 2.2-4.2 [facility] Comment on above: Order Comment: UNKNO WN 1 N Performed By: #### L 503.0105, L504.2610, L101.9900, L100.0100, L500.4050, L100.9950, L501.6710, L3100.1350, L400.0001, L506.0250 #### [facility] [address] [place], [address] Glucose [Mass/Vol] 108 mg/dL High 74-106 [facility] Comment on above: Order Comment: UNKNO WN 1 N Result Comment: Fast ing Glucose result from 100 to 125 mg/dL suggests IMPAIRED HOMEOSTASIS per A.D.A. criteria. Performed By: #### L 503.0105, L504.2610, L101.9900, L100.0100, L500.4050, L100.9950, L501.6710, L3100.1350, L400.0001, L506.0250 #### [facility] [address] [place], [address] Potassium [Moles/Vol] 3.6 mmol/L Normal 3.5-5.1 [facility] Comment on above: Order Comment: UNKNO WN 1 N Performed By: #### L 503.0105, L504.2610, L101.9900, L100.0100, L500.4050, L100.9950, L501.6710, L3100.1350, L400.0001, L506.0250 #### [facility] [address] [place], [address] Sodium [Moles/Vol] 140 mmol/L Normal 136-145 [facility] Comment on above: Order Comment: UNKNO WN 1 N Performed By: #### L 503.0105, L504.2610, L101.9900, L100.0100, L500.4050, L100.9950, L501.6710, L3100.1350, L400.0001, L506.0250 #### [facility] [address] [place], [address] ( T PROT 7.2 g/dL Normal 6.4-8.2 [facility] Comment on above: Order Comment: UNKNO WN 1 N Performed By: #### L 503.0105, L504.2610, L101.9900, L100.0100, L500.4050, L100.9950, L501.6710, L3100.1350, L400.0001, L506.0250 #### [facility] [address] [place], [address] Urea nitrogen [Mass/Vol] 15 mg/dL Normal 7-18 [facility] Comment on above: Order Comment: UNKNO WN 1 N Performed By: #### L 503.0105, L504.2610, L101.9900, L100.0100, L500.4050, L100.9950, L501.6710, L3100.1350, L400.0001, L506.0250 #### [facility] [address] [place], [address] Erythrocyte Sed Rateon 10-22 SED RATE 5 mm/hr Normal 0-30 [facility] Comment on above: Performed By: #### L 503.0105, L504.2610, L101.9900, L100.0100, L500.4050, L100.9950, L501.6710, L3100.1350, L400.0001, L506.0250 #### [facility] [address] [place], [address] Folates, (Folic Acid)on FOLATES 8.40 ng/mL Normal 3.1-55.4 [facility] Comment on above: Order Comment: UNKNO WN1N Performed By: #### L 503.0105, L504.2610, L101.9900, L100.0100, L500.4050, L100.9950, L501.6710, L3100.1350, L400.0001, L506.0250 ####[facility] [address] [place], [place], [phone] LDHon 10-22-2024 LDH 214 U/L Normal 84-246 [facility] Comment on above: Order Comment: UNKNO WN1N Performed By: #### L 503.0105, L504.2610, L101.9900, L100.0100, L500.4050, L100.9950, L501.6710, L3100.1350, L400.0001, L506.0250 ####[facility] [address] [place], [address] Oncology Visit Reporton Oncology Visit Report [facility] [address] [place] [address] OFFICE VISIT Date of Service: 10/22/24 1523 MR#: [id number] Acct: [id number] Name: LETICIA GAR Rep #: [id number] : 1960 From: Sam Venegas MD Age/Sex: 64/F Location: [facility] Status: Signed HPI Subjective Date of Service 10/22/24 Chief Complaint Referred for Polycythemia. History of Present Illness 64y.o.woman was found to have persistently high HGB level and referred for further evaluation. Denies fever, weight loss or night sweats, family history of blood disease. [facility] Medical History (Updated 10/22/24 @ 16:[address] Sam Venegas MD) Psoriatic arthritis TMJ (dislocation of temporomandibular joint) Erythrocytosis Leukopenia Elevated hemoglobin Psoriasis Animal dander allergy Dust allergy Allergy to mold Allergic rhinitis Vitamin D deficiency Seborrheic keratosis Verruca Osteoporosis History of melanoma Urinary tract infection with hematuria Rash Wears contact lenses Wears glasses Post-menopausal Anxiety Depression Diabetes Kidney stones History of diverticulosis Hx of irritable bowel syndrome Former smoker Leg cramps Hx of exercise stress test Hypertension Restless legs Head concussion Injury of head and neck Surgical History (Updated 10/22/24 @ 15:32 by Dee Lamb LPN) Melanoma Hx of colonoscopy ( 02/20/18) Hx of oophorectomy Hx of oophorectomy Hx of hysterectomy Hx of palate surgery Hx of foot surgery Hx laparoscopic cholecystectomy History of wisdom tooth extraction Hx of tonsillectomy Hx of sinus surgery Family History Other Cancer Diabetes Heart disease Hypertension Social History Smoking Status: Former smoker Tobacco: How many years used: 6 alcohol intake: never substance use type: does not use ROS Constitutional Constitutional: Reports systems reviewed and no addt'l complaints, except as documented Eyes Eyes: Reports systems reviewed and no addt'l complaints, except as documented ENT HEENT: Reports systems reviewed and no addt'l complaints, except as documented Cardiovascular Cardiovascular: Reports systems reviewed and no addt'l complaints, except as documented Respiratory/Chest Respiratory/Chest: Reports systems reviewed and no addt'l complaints, except as documented Gastrointestinal Gastrointestinal: Reports systems reviewed and no addt'l complaints, except as documented Genitourinary Genitourinary: Reports systems reviewed and no addt'l complaints, except as documented Musculoskeletal Musculoskeletal: Reports systems reviewed and no addt'l complaints, except as documented Integumentary Integumentary: Reports systems reviewed and no addt'l complaints, except as documented Neurologic Neurologic: Reports systems reviewed and no addt'l complaints, except as documented Psychiatric Psychiatric: Reports systems reviewed and no addt'l complaints, except as documented Endocrine Endocrinology: Reports systems reviewed and no addt'l complaints, except as documented Hematologic/Lymphatic Hematologic/Lymphatic : Reports systems reviewed and no addt'l complaints, except as documented Allergic/Immunologic Allergic/Immunologic: Reports systems reviewed and no addt'l complaints, except as documented Intake Vital Signs 05/08/23 14:55 10/22/24 15:32 10/22/24 15:36 10/22/24 15:37 Height 5 ft 5 in 5 ft 4 in 5 ft 5 in 5 ft 4 in Weight: 67.387 kg 67.387 kg BMI 25.4 25.4 BP 164/86 H Blood Pressure Location Rt brachial Position Sitting Respiration 18 Pulse 60 Pulse Source Monitor Temp 98.5 F Temperature Source Temporal Artery Pulse Oximetry (%) 98 Oxygen Delivery Method room air Intake Is patient in pain?: No Allergies sulfamethoxazole (From Bactrim) Allergy (Verified 10/22/24 15:24) Hives trimethoprim (From Bactrim) Allergy (Verified 10/22/24 15:24) Hives amoxicillin Adverse Reaction (Unknown, Verified 10/22/24 15:24) Diarrhea escitalopram (From Lexapro) Adverse Reaction (Unknown, Verified 10/22/24 15:24) weight gain paroxetine (From Paxil) Adverse Reaction (Unknown, Verified 10/22/24 15:24) weight gain metoclopramide (From Reglan) Adverse Reaction (Verified 10/22/24 15:24) restless Medications ???Medication ???Instructions ???Recorded ???Confirmed ???Type gabapentin 600 mg tablet 600 mg PO QHS 02/18/21 10/22/24 History dapagliflozin propanediol 10 mg 10 mg PO QAM 09/26/24 10/22/24 History tablet (Farxiga) diclofenac sodium 1 % topical gel 2 g topical ONCE 09/26/24 10/22/24 History ibandronate 150 mg tablet 150 mg PO QMONTH 09/26/24 10/22/24 History indapamide 1.25 mg tablet 1.25 mg PO QAM 09/26/24 (more content not included)... Normal [facility] Retic Panelon 10-22-2024 IM RET FRACTION 13.90 Normal 3.00-15.90 [facility] Comment on above: Performed By: #### L 503.0105, L504.2610, L101.9900, L100.0100, L500.4050, L100.9950, L501.6710, L3100.1350, L400.0001, L506.0250 #### [facility] [address] [place], [place], [id number] RET-HE 32.6 pg Normal 30-35 [facility] Comment on above: Performed By: #### L 503.0105, L504.2610, L101.9900, L100.0100, L500.4050, L100.9950, L501.6710, L3100.1350, L400.0001, L506.0250 #### [facility] [address] [place], [place], [id number] Retic Count 2.04 High 0.5-1.5 [facility] Comment on above: Performed By: #### L 503.0105, L504.2610, L101.9900, L100.0100, L500.4050, L100.9950, L501.6710, L3100.1350, L400.0001, L506.0250 #### [facility] [address] [facility] [place], [place], [id number] Urinalysis, Completeon 10-22 RBC 0-5 SEEN Normal 0-5 [facility] Comment on above: Order Comment: UNKNO WN INTERN [employer]ODUCT MARKETING MANAGER TO SPECIFY Performed By: #### L 503.0105, L504.2610, L101.9900, L100.0100, L500.4050, L100.9950, L501.6710, L3100.1350, L400.0001, L506.0250 #### [facility] [address] [place], [place], [phone] WBC 0-5 SEEN Normal 0-5 [facility] Comment on above: Order Comment: UNKNO WN INTERN PRODUCT MARKETING MANAGER TO SPECIFY Performed By: #### L 503.0105, L504.2610, L101.9900, L100.0100, L500.4050, L100.9950, L501.6710, L3100.1350, L400.0001, L506.0250 #### [facility] [address] [place], [place], [phone] (553) EPI,SQUAMOUS 0-5 SEEN Normal 5-10 [facility] Comment on above: Order Comment: UNKNO WN INTERN PRODUCT MARKETING MANAGER TO SPECIFY Performed By: #### L 503.0105, L504.2610, L101.9900, L100.0100, L500.4050, L100.9950, L501.6710, L3100.1350, L400.0001, L506.0250 #### [facility] [address] [place], [place], [phone] (472) BACTERIA 0 SEEN Normal None Seen [facility] Comment on above: Order Comment: UNKNO WN INTERN PRODUCT MARKETING MANAGER TO SPECIFY Performed By: #### L 503.0105, L504.2610, L101.9900, L100.0100, L500.4050, L100.9950, L501.6710, L3100.1350, L400.0001, L506.0250 #### [facility] [address] [place], [place], [phone] (119) Mucus Ql (Urine sed) 0 SEEN Normal [facility] Comment on above: Order Comment: UNKNO WN INTERN PRODUCT MARKETING MANAGER TO SPECIFY Performed By: #### L 503.0105, L504.2610, L101.9900, L100.0100, L500.4050, L100.9950, L501.6710, L3100.1350, L400.0001, L506.0250 #### [facility] [address] [place], [place], [phone] (089) Vitamin B12on 10-22-2024 Cobalamin (Vitamin B12) [Mass/Vol] 331 pg/mL Normal 211-911 [facility] Comment on above: Performed By: #### L 503.0105, L504.2610, L101.9900, L100.0100, L500.4050, L100.9950, L501.6710, L3100.1350, L400.0001, L506.0250 #### [facility] [address] [place], [address] CBC W/Diff, Automatedon 11- Absolute Lymph 1.18 X10 3/uL Normal 0.83-4.51 [facility] Comment on above: Order Comment: Order Date: 09/12/24Order Info: 0184-1 - CBCD Performed By: #### L 502.0250, L501.9985, L100.0100, L500.4050 ####[facility] [address] [place], [address] Absolute Neut 2.7 X10 3/uL Normal 2.0-7.7 [facility] Comment on above: Order Comment: Order Date: 09/12/24Order Info: 0184-1 - CBCD Performed By: #### L 502.0250, L501.9985, L100.0100, L500.4050 ####[facility] [address] [place], [address] Basophils/100 WBC (Bld) 0.9 % Normal 0-1 [facility] Comment on above: Order Comment: Order Date: 09/12/24Order Info: 0184-1 - CBCD Performed By: #### L 502.0250, L501.9985, L100.0100, L500.4050 ####[facility] [address] [place], [address] Eosinophils/100 WBC (Bld) 1.4 % Normal 0-5 [facility] Comment on above: Order Comment: Order Date: 09/12/24Order Info: 0184-1 - CBCD Performed By: #### L 502.0250, L501.9985, L100.0100, L500.4050 ####[facility] [address] [place], [address] Erythrocyte distribution width (RBC) [Ratio] 13.1 % Normal 11.6-14.6 [facility] Comment on above: Order Comment: Order Date: 09/12/24Order Info: 0184-1 - CBCD Performed By: #### L 502.0250, L501.9985, L100.0100, L500.4050 ####[facility] [address] [place], [address] Hematocrit (Bld) [Volume fraction] 49.8 % High 37-47 [facility] Comment on above: Order Comment: Order Date: 09/12/24Order Info: 018-1 - CBCD Performed By: #### L 502.0250, L501.9985, L100.0100, L500.4050 ####[facility] [address] [place], [address] Hemoglobin (Bld) [Mass/Vol] 16.7 g/dL High 12.0-15.0 [facility] Comment on above: Order Comment: Order Date: 09/12/24Order Info: 0184-1 - CBCD Performed By: #### L 502.0250, L501.9985, L100.0100, L500.4050 ####[facility] [address] [place], [address] IG% 0.500 Normal 0.0-0.9 [facility] Comment on above: Order Comment: Order Date: 09/12/24Order Info: 0184-1 - CBCD Result Comment: IG% - Immature Granulocytes (promyelocytes, myelocytes and metamyelocytes) > 1% indicates that a LEFT SHIFT is Present. Performed By: #### L 502.0250, L501.9985, L100.0100, L500.4050 ####[facility] [address] [place], [address] Lymphocytes/100 WBC (Bld) 27.4 % Normal 19-41 [facility] Comment on above: Order Comment: Order Date: 09/12/24Order Info: 183- - CBCD Performed By: #### L 502.0250, L501.9985, L100.0100, L500.4050 ####[facility] [address] [place], [address] MCH (RBC) [Entitic mass] 30.0 pg Normal 27.0-32.0 [facility] Comment on above: Order Comment: Order Date: 09/12/24Order Info: 183- - CBCD Performed By: #### L 502.0250, L501.9985, L100.0100, L500.4050 ####[facility] [address] [place], [address] MCHC (RBC) [Mass/Vol] 33.5 g/dL Normal 32-36 [facility] Comment on above: Order Comment: Order Date: 09/12/24Order Info: 183- - CBCD Performed By: #### L 502.0250, L501.9985, L100.0100, L500.4050 ####[facility] [address] [place], [address] MCV (RBC) [Entitic vol] 89.4 fL Normal 81-99 [facility] Comment on above: Order Comment: Order Date: 09/12/24Order Info: 018- - CBCD Performed By: #### L 502.0250, L501.9985, L100.0100, L500.4050 ####[facility] [address] [place], [address] Monocytes/100 WBC (Bld) 6.3 % Normal 0-10 [facility] Comment on above: Order Comment: Order Date: 09/12/24Order Info: 0184-1 - CBCD Performed By: #### L 502.0250, L501.9985, L100.0100, L500.4050 ####[facility] [address] [place], [address] Neutrophils/100 WBC (Bld) 63.5 % Normal 47-70 [facility] Comment on above: Order Comment: Order Date: 09/12/24Order Info: 183- - CBCD Performed By: #### L 502.0250, L501.9985, L100.0100, L500.4050 ####[facility] [address] [place], [address] Nucleated RBC (Bld) [#/Vol] 0 10*3/uL Normal 0-5 [facility] Comment on above: Order Comment: Order Date: 09/12/24Order Info: 183- - CBCD Performed By: #### L 502.0250, L501.9985, L100.0100, L500.4050 ####[facility] [address] [place], [address] Platelet mean volume (Bld) [Entitic vol] 10.4 fL Normal 6.2-12.0 [facility] Comment on above: Order Comment: Order Date: 09/12/24Order Info: 183- - CBCD Performed By: #### L 502.0250, L501.9985, L100.0100, L500.4050 ####[facility] [address] [place], [address] Platelets (Bld) [#/Vol] 207 10*3/uL Normal 150-450 [facility] Comment on above: Order Comment: Order Date: 09/12/24Order Info: 183- - CBCD Performed By: #### L 502.0250, L501.9985, L100.0100, L500.4050 ####[facility] [address] [place], [address] RBC (Bld) [#/Vol] 5.57 10*6/uL High 4.2-5.4 [facility] Comment on above: Order Comment: Order Date: 09/12/24Order Info: 0184-1 - CBCD Performed By: #### L 502.0250, L501.9985, L100.0100, L500.4050 ####[facility] [address] [place], [address] RDW SD 42.8 fl Normal 35.1-43.9 [facility] Comment on above: Order Comment: Order Date: 09/12/24Order Info: 0184- - CBCD Performed By: #### L 502.0250, L501.9985, L100.0100, L500.4050 ####[facility] [address] [place], [address] WBC (Bld) [#/Vol] 4.3 10*3/uL Low 4.4-11.0 [facility] Comment on above: Order Comment: Order Date: 09/12/24Order Info: 0184- - CBCD Performed By: #### L 502.0250, L501.9985, L100.0100, L500.4050 ####[facility] [address] [place], [address] Comprehensive Metabolic Prof scon 09-12-2024 Albumin [Mass/Vol] 4.6 g/dL Normal 3.2-5.0 [facility] Comment on above: Order Comment: Order Date: 09/12/24Order Info: 0786-1 - CMP Performed By: #### L 502.0250, L501.9985, L100.0100, L500.4050 ####[facility] [address] [place], [address] Albumin/Globulin [Mass ratio] 1.3 {ratio} Normal 0.9-2.4 [facility] Comment on above: Order Comment: Order Date: 09/12/24Order Info: 0786-1 - CMP Performed By: #### L 502.0250, L501.9985, L100.0100, L500.4050 ####[facility] [address] [place], [address] ALK P 68 U/L Normal 45-117 [facility] Comment on above: Order Comment: Order Date: 09/12/24Order Info: 0786-1 - CMP Performed By: #### L 502.0250, L501.9985, L100.0100, L500.4050 ####[facility] [address] [place], [address] ALT [Catalytic activity/Vol] 35 U/L Normal 13-56 [facility] Comment on above: Order Comment: Order Date: 09/12/24Order Info: 0786-1 - CMP Performed By: #### L 502.0250, L501.9985, L100.0100, L500.4050 ####[facility] [address] [place], [address] AST [Catalytic activity/Vol] 26 U/L Normal 15-37 [facility] Comment on above: Order Comment: Order Date: 09/12/24Order Info: 0786-1 - CMP Performed By: #### L 502.0250, L501.9985, L100.0100, L500.4050 ####[facility] [address] [place], [address] Bilirubin [Mass/Vol] 0.80 mg/dL Normal 0.20-1.00 [facility] Comment on above: Order Comment: Order Date: 09/12/24Order Info: 0786-1 - CMP Result Comment: For patients on eltrombopag therapy, use of Dimension [place] TBIL is not recommended. Performed By: #### L 502.0250, L501.9985, L100.0100, L500.4050 ####[facility] [address] [place], [address] BUN/CRE 16.3 RATIO Normal 10-20 [facility] Comment on above: Order Comment: Order Date: 09/12/24Order Info: 0786-1 - CMP Performed By: #### L 502.0250, L501.9985, L100.0100, L500.4050 ####[facility] [address] [place], [address] CA,Total 9.0 mg/dL Normal 8.5-10.1 [facility] Comment on above: Order Comment: Order Date: 09/12/24Order Info: 0786-1 - CMP Performed By: #### L 502.0250, L501.9985, L100.0100, L500.4050 ####[facility] [address] [place], [address] Chloride [Moles/Vol] 106 mmol/L Normal 98-107 [facility] Comment on above: Order Comment: Order Date: 09/12/24Order Info: 0786-1 - CMP Performed By: #### L 502.0250, L501.9985, L100.0100, L500.4050 ####[facility] [address] [place], [address] CO2 [Moles/Vol] 28.0 mmol/L Normal 21.0-32.0 [facility] Comment on above: Order Comment: Order Date: 09/12/24Order Info: 0786-1 - CMP Performed By: #### L 502.0250, L501.9985, L100.0100, L500.4050 ####[facility] [address] [place], [address] Creatinine [Mass/Vol] 0.92 mg/dL Normal 0.55-1.02 [facility] Comment on above: Order Comment: Order Date: 09/12/24Order Info: 0786-1 - CMP Result Comment: The validity of the calculated GFR GFRAA in patients over 70 years has not been determined. Clinical correlation is essential. Performed By: #### L 502.0250, L501.9985, L100.0100, L500.4050 ####[facility] [address] [place], [address] EST GFR - AA 78 mL/min Normal >60 [facility] Comment on above: Order Comment: Order Date: 09/12/24Order Info: 0786-1 - CMP Result Comment: Afri can French GFR Calc Performed By: #### L 502.0250, L501.9985, L100.0100, L500.4050 ####[facility] [address] [place], [address] GAP 6 Normal 5-15 [facility] Comment on above: Order Comment: Order Date: 09/12/24Order Info: 0786-1 - CMP Performed By: #### L 502.0250, L501.9985, L100.0100, L500.4050 ####[facility] [address] [place], [address] GFR/1.73 sq M.predicted among non-blacks MDRD (S/P/Bld) [Vol rate/Area] 65 mL/min/{1.73_m2} Normal >60 [facility] Comment on above: Order Comment: Order Date: 09/12/24Order Info: 0786-1 - CMP Result Comment: Non- GFR Calc Performed By: #### L 502.0250, L501.9985, L100.0100, L500.4050 ####[facility] [address] [place], [address] Globulin (S) [Mass/Vol] 3.5 g/dL Normal 2.2-4.2 [facility] Comment on above: Order Comment: Order Date: 09/12/24Order Info: 0786-1 - CMP Performed By: #### L 502.0250, L501.9985, L100.0100, L500.4050 ####[facility] [address] [place], [address] Glucose [Mass/Vol] 98 mg/dL Normal 74-106 [facility] Comment on above: Order Comment: Order Date: 09/12/24Order Info: 0786-1 - CMP Performed By: #### L 502.0250, L501.9985, L100.0100, L500.4050 ####[facility] [address] [place], [address] Potassium [Moles/Vol] 3.6 mmol/L Normal 3.5-5.1 [facility] Comment on above: Order Comment: Order Date: 09/12/24Order Info: 0786-1 - CMP Performed By: #### L 502.0250, L501.9985, L100.0100, L500.4050 ####[facility] [address] [place], [address] Sodium [Moles/Vol] 140 mmol/L Normal 136-145 [facility] Comment on above: Order Comment: Order Date: 09/12/24Order Info: 0786-1 - CMP Performed By: #### L 502.0250, L501.9985, L100.0100, L500.4050 ####[facility] [address] [place], [address] T PROT 8.1 g/dL Normal 6.4-8.2 [facility] Comment on above: Order Comment: Order Date: 09/12/24Order Info: 0786-1 - CMP Performed By: #### L 502.0250, L501.9985, L100.0100, L500.4050 ####[facility] [address] [place], [address] Urea nitrogen [Mass/Vol] 15 mg/dL Normal 7-18 [facility] Comment on above: Order Comment: Order Date: 09/12/24Order Info: 0786-1 - CMP Performed By: #### L 502.0250, L501.9985, L100.0100, L500.4050 ####[facility] [address] [place], [address] Hemoglobin A1con 09-12-2024 HbA1c (Bld) [Mass fraction] 6.0 % High 3.8-5.6 [facility] Comment on above: Order Comment: Order Date: 09/12/24Order Info: [id number] - A1C Result Comment: Norm al < 5.7 % Prediabetic 5.7 - 6.4 % Diabetic >or= 6.5 % Please note range changes. Performed By: #### L 502.0250, L501.9985, L100.0100, L500.4050 ####[facility] [address] [place], [address] Microalb:Creat Ratio,Random URon 09-12-2024 Creatinine [Mass/Vol] 110.00 mg/dL Normal NO RANGE EST. [facility] Comment on above: Order Comment: Order Date: 09/12/24Order Info: 0779-1 - MIACRE Performed By: #### L 502.0250, L501.9985, L100.0100, L500.4050 ####[facility] [address] [place], [address] MALB:CRE 13.4 mg/g CRE Normal <30 mg/g CRE [facility] Comment on above: Order Comment: Order Date: 09/12/24Order Info: 0779-1 - MIACRE Performed By: #### L 502.0250, L501.9985, L100.0100, L500.4050 ####[facility] [address] [place], [address] MICROALBUMIN,UR 14.7 mg/L Normal NO RANGE EST. [facility] Comment on above: Order Comment: Order Date: 09/12/24Order Info: 0779-1 - MIACRE Performed By: #### L 502.0250, L501.9985, L100.0100, L500.4050 ####[facility] [address] [place], [address] CBC W/Diff, Automatedon 06-15-2023 Absolute Lymph 1.63 X10 3/uL Normal 0.83-4.51 [facility] Comment on above: Order Comment: Order Date: 04/30/24 Order Info: 183- - CBCD Performed By: #### L 100.0100 #### [facility] [address] [place], [address] Absolute Neut 4.6 X10 3/uL Normal 2.0-7.7 [facility] Comment on above: Order Comment: Order Date: 04/30/24 Order Info: 183- - CBCD Performed By: #### L 100.0100 #### [facility] [address] [place], [address] Basophils/100 WBC (Bld) 0.6 % Normal 0-1 [facility] Comment on above: Order Comment: Order Date: 04/30/24 Order Info: 183- - CBCD Performed By: #### L 100.0100 #### [facility] [address] [place], [address] Eosinophils/100 WBC (Bld) 1.2 % Normal 0-5 [facility] Comment on above: Order Comment: Order Date: 04/30/24 Order Info: 018- - CBCD Performed By: #### L 100.0100 #### [facility] [address] [place], [address] Erythrocyte distribution width (RBC) [Ratio] 12.6 % Normal 11.6-14.6 [facility] Comment on above: Order Comment: Order Date: 04/30/24 Order Info: 018- - CBCD Performed By: #### L 100.0100 #### [facility] [address] [place], [address] Hematocrit (Bld) [Volume fraction] 46.2 % Normal 37-47 [facility] Comment on above: Order Comment: Order Date: 04/30/24 Order Info: 0184-1 - CBCD Performed By: #### L 100.0100 #### [facility] [address] [place], [address] Hemoglobin (Bld) [Mass/Vol] 15.1 g/dL High 12.0-15.0 [facility] Comment on above: Order Comment: Order Date: 04/30/24 Order Info: 0184-1 - CBCD Performed By: #### L 100.0100 #### [facility] [address] [place], [address] IG% 0.300 Normal 0.0-0.9 [facility] Comment on above: Order Comment: Order Date: 04/30/24 Order Info: 018- - CBCD Result Comment: IG% - Immature Granulocytes (promyelocytes, myelocytes and metamyelocytes) > 1% indicates that a LEFT SHIFT is Present. Performed By: #### L 100.0100 #### [facility] [address] [place], [address] Lymphocytes/100 WBC (Bld) 24.0 % Normal 19-41 [facility] Comment on above: Order Comment: Order Date: 04/30/24 Order Info: 0184- - CBCD Performed By: #### L 100.0100 #### [facility] [address] [place], [address] MCH (RBC) [Entitic mass] 28.3 pg Normal 27.0-32.0 [facility] Comment on above: Order Comment: Order Date: 04/30/24 Order Info: 0184-1 - CBCD Performed By: #### L 100.0100 #### [facility] [address] [place], [address] MCHC (RBC) [Mass/Vol] 32.7 g/dL Normal 32-36 [facility] Comment on above: Order Comment: Order Date: 04/30/24 Order Info: 0184-1 - CBCD Performed By: #### L 100.0100 #### [facility] [address] [place], [address] MCV (RBC) [Entitic vol] 86.7 fL Normal 81-99 [facility] Comment on above: Order Comment: Order Date: 04/30/24 Order Info: 0184-1 - CBCD Performed By: #### L 100.0100 #### [facility] [address] [place], [address] Monocytes/100 WBC (Bld) 6.8 % Normal 0-10 [facility] Comment on above: Order Comment: Order Date: 04/30/24 Order Info: 0184-1 - CBCD Performed By: #### L 100.0100 #### [facility] [address] [place], [address] Neutrophils/100 WBC (Bld) 67.1 % Normal 47-70 [facility] Comment on above: Order Comment: Order Date: 04/30/24 Order Info: 018-1 - CBCD Performed By: #### L 100.0100 #### [facility] [address] [place], [address] Nucleated RBC (Bld) [#/Vol] 0 10*3/uL Normal 0-5 [facility] Comment on above: Order Comment: Order Date: 04/30/24 Order Info: 0184-1 - CBCD Performed By: #### L 100.0100 #### [facility] [address] [place], [address] Platelet mean volume (Bld) [Entitic vol] 10.7 fL Normal 6.2-12.0 [facility] Comment on above: Order Comment: Order Date: 04/30/24 Order Info: 0184-1 - CBCD Performed By: #### L 100.0100 #### [facility] [address] [place], [address] Platelets (Bld) [#/Vol] 197 10*3/uL Normal 150-450 [facility] Comment on above: Order Comment: Order Date: 04/30/24 Order Info: 0184- - CBCD Performed By: #### L 100.0100 #### [facility] [address] [place], [address] RBC (Bld) [#/Vol] 5.33 10*6/uL Normal 4.2-5.4 [facility] Comment on above: Order Comment: Order Date: 04/30/24 Order Info: 018- - CBCD Performed By: #### L 100.0100 #### [facility] [address] [place], [address] RDW SD 39.8 fl Normal 35.1-43.9 [facility] Comment on above: Order Comment: Order Date: 04/30/24 Order Info: 018- - CBCD Performed By: #### L 100.0100 #### [facility] [address] [place], [address] WBC (Bld) [#/Vol] 6.8 10*3/uL Normal 4.4-11.0 [facility] Comment on above: Order Comment: Order Date: 04/30/24 Order Info: 0184- - CBCD Performed By: #### L 100.0100 #### [facility] [address] [place], [address] Bacteria Ur Culton 3 Bacteria identified Cx Nom (U) 1 ORGANISM 202 Abnormal 80,000 CFU/mL Escherichia coli The organism value for this result has been updated. These results have been appended to the previously preliminary verified report. -------- 1 ORGANISM Antibiotic Result Intrp Ampicillin Susc Islt 8 ug/ml Susceptible Ampicillin+Sulbac Susc Islt 4 ug/ml Susceptible ceFAZolin Susc Islt <=4 ug/ml Susceptible cefTRIAXone Susc Islt <=0.25 ug/ml Susceptible levoFLOXacin Susc Islt 1 ug/ml I Gentamicin Susc Islt <=1 ug/ml Susceptible Ciprofloxacin Susc Islt 1 ug/ml Resistant Nitrofurantoin Susc Islt <=16 ug/ml Susceptible TMP SMX Susc Islt <=20 ug/ml Susceptible Invalid Interpretation Code [facility] Comment on above: Performed By: #### 6 30-4 #### [facility] [place] [facility] [address] [place] [address] POC Urine Auto W/O Microon 0 02-26-2023 Bilirubin UA POC Negative [facility] Blood UA POC Positive [facility] CLARITY, URINE POC Clear [facility] Color UA POC Light Yellow [facility] Glucose UA POC Positive [facility] Interpretation and review of laboratory results Abnormal [facility] Ketones UA POC Negative Negative [facility] Leukocytes UA POC Negative [facility] Nitrite UA POC Negative Negative [facility] PH UA POC 5.0 [facility] Protein UA POC Negative Positive, Negative [facility] Specific [place] UA POC 1.005 [facility] Urobilinogen UA POC Negative [facility] Absolute lymphocyte counton 09-18-2022 Lymphocytes Auto (Unsp spec) [#/Vol] 1.24 10*3/uL 0.83-4.51 [facility] Work Phone: Basophil percentageon 2021 Basophils/100 WBC (Bld) 1.2 % 0-1 [facility] Work Phone: Bilirubin [Mass/Vol] 0.60 mg/dL 0.20-1.00 [facility] Work Phone: Comment on above: For patients on eltr ombopag therapy, use of Dimension [place] TBIL is not recommended. Chloride [Moles/Vol] 106 mmol/L 98-107 [facility] Work Phone: Cholesterol [Mass/Vol] 236 mg/dL <200 [facility] Work Phone: Comment on above: <200 mg/dL Desirable 200-240 mg/dL Borderline >240 mg/dL High Risk Eosinophils/100 WBC (Bld) 2.6 % 0-5 [facility] Work Phone: Glucose [Mass/Vol] 105 mg/dL 74-106 [facility] Work Phone: Comment on above: Fasting Glucose resu lt from 100 to 125 mg/dL suggests IMPAIRED HOMEOSTASIS per A.D.A. criteria. Neutrophils (Bld) [#/Vol] 2.5 10*3/uL 2.0-7.7 [facility] Work Phone: Neutrophils/100 WBC (Bld) 58.1 % 47-70 [facility] Work Phone: Potassium [Moles/Vol] 4.3 mmol/L 3.5-5.1 [facility] Work Phone: Protein [Mass/Vol] 7.0 g/dL 6.4-8.2 [facility] Work Phone: Sodium [Moles/Vol] 138 mmol/L 136-145 [facility] Work Phone: Triglyceride [Mass/Vol] 113 mg/dL <199 [facility] Work Phone: Comment on above: The drugs N-Acetylcy steine and Metamizole may falsely depress this assay.Serum Triglycerides Reference Interval Normal <150 mg/dL Borderline high 150 - 199 mg/dL High 200 - 499 mg/dL Very High > or = 500 mg/dL WBC (Bld) [#/Vol] 4.3 10*3/uL 4.4-11.0 [facility] Work Phone: Blood erythrocytes count (nu mber/volume)on 09-18-2022 RBC (Bld) [#/Vol] 5.39 10*6/uL 4.2-5.4 [facility] Work Phone: Blood hemoglobin measurement (mass/volume)on 09-18-2022 Hemoglobin (Bld) [Mass/Vol] 15.8 g/dL 12.0-15.0 [facility] Work Phone: Blood lymphocytes/100 leukoc yteson 09-18-2022 Lymphocytes/100 WBC (Bld) 29.2 % 19-41 [facility] Work Phone: Blood monocytes/100 leukocyt eson 09-18-2022 Monocytes/100 WBC (Bld) 8.7 % 0-10 [facility] Work Phone: Blood platelet mean volumeon 09-18-2022 Platelet mean volume (Bld) [Entitic vol] 10.0 fL 6.2-12.0 [facility] Work Phone: Determination of erythrocyte mean corpuscular volume (MCV)on 09-18-2022 MCV (RBC) [Entitic vol] 90.7 fL 81-99 [facility] Work Phone: Hematocrit Auto (Bld) [Volum e fraction]on 09-18-2022 Hematocrit (Bld) [Volume fraction] 48.9 % 37-47 [facility] Work Phone: Laboratory - Chemistry and C hemistry - challengeon 09-18-2022 ALP [Catalytic activity/Vol] 96 U/L 45-117 [facility] Work Phone: ALT [Catalytic activity/Vol] 26 U/L 13-56 [facility] Work Phone: CO2 [Moles/Vol] 27.0 mmol/L 21.0-32.0 [facility] Work Phone: Globulin (S) [Mass/Vol] 2.9 g/dL 2.2-4.2 [facility] Work Phone: Urea nitrogen/Creatinine [Mass ratio] 15.2 mg/mg 10-20 [facility] Work Phone: Laboratory - Hematology and Cell countson 09-18-2022 Erythrocyte distribution width (RBC) [Entitic vol] 41.1 fL 35.1-43.9 [facility] Work Phone: Erythrocyte distribution width (RBC) [Ratio] 12.3 % 11.6-14.6 [facility] Work Phone: Immature granulocytes/100 WBC (Bld) 0.200 % 0.0-0.9 [facility] Work Phone: Comment on above: IG% - Immature Granu locytes (promyelocytes, myelocytes and metamyelocytes) > 1% indicates that a LEFT SHIFT is Present. MCH (RBC) [Entitic mass] 29.3 pg 27.0-32.0 [facility] Work Phone: Nucleated RBC/100 WBC (Bld) [Ratio] 0 % 0-5 [facility] Work Phone: MCHC Auto (RBC) [Mass/Vol]on 09-18-2022 MCHC (RBC) [Mass/Vol] 32.3 g/dL 32-36 [facility] Work Phone: No Panel Informationon 09-18 Estimated GFR (MDRD) Amer 94 mL/min >60 [facility] Work Phone: Comment on above: GFR Calc Estimated GFR (MDRD) Non-Af Amer 78 mL/min >60 [facility] Work Phone: Comment on above: Non- GFR Calc Urine Microalbumin/Creatin ine Ratio 11.9 mg/g CRE <30 [facility] Work Phone: Platelets bldon 09-18-2022 Platelets (Bld) [#/Vol] 186 10*3/uL 150-450 [facility] Work Phone: Serum or plasma albumin rehana urement (mass/volume)on 09-18-2022 Albumin [Mass/Vol] 4.1 g/dL 3.2-5.0 [facility] Work Phone: Serum or plasma albumin/glob ulin mass ratioon 09-18-2022 Albumin/Globulin [Mass ratio] 1.4 {ratio} 0.9-2.4 [facility] Work Phone: Serum or plasma calcium rehana urement (mass/volume)on 09-18-2022 Calcium [Mass/Vol] 9.0 mg/dL 8.5-10.1 [facility] Work Phone: Serum or plasma cholesterol in HDL measurement (mass/volume)on 09-18-2022 Cholesterol in HDL [Mass/Vol] 53 mg/dL >40 [facility] Work Phone: Comment on above: The drugs N-Acetylcy steine and Metamizole may falsely depress this assay. Reference Range HDL <40 mg/dL Low HDL Cholesterol HDL >or= 60 mg/dL High HDL Cholesterol Serum or plasma cholesterol in VLDL measurement (mass/volume)on 09-18-2022 Cholesterol in VLDL [Mass/Vol] 23 mg/dL 5-40 [facility] Work Phone: Serum or plasma creatinine m easurement (mass/volume)on 09-18-2022 Creatinine [Mass/Vol] 0.79 mg/dL 0.55-1.02 [facility] Work Phone: Comment on above: The validity of the calculated GFR & GFRAA in patients over 70 years has not been determined. Clinical correlation is essential. Serum or plasma low density lipoprotein (LDL) cholesterol measurement (mass/volume)on 09-18-2022 Cholesterol in LDL [Mass/Vol] 160 mg/dL 0-130 [facility] Work Phone: Serum or plasma urea nitroge n measurement (mass/volume)on 09-18-2022 Urea nitrogen [Mass/Vol] 12 mg/dL 7-18 [facility] Work Phone: Thin prep Papanicolaou smear with manual screeningon 09-18-2022 Thin prep Papanicolaou smear with manual screening 18 U/L 15-37 [facility] Work Phone: Thin prep Papanicolaou smear with manual screening 5 5-15 [facility] Work Phone: Thin prep Papanicolaou smear with manual screening 9.0 mg/L NO RANGE EST. [facility] Work Phone: Urine creatinine measurement (mass/volume)on 09-18-2022 Creatinine (U) [Mass/Vol] 76.00 mg/dL NO RANGE EST. [facility] Work Phone: Whole blood hemoglobin A1c/t otal hemoglobin ratio (mass fraction)on 09-18-2022 HbA1c (Bld) [Mass fraction] 6.0 % 3.8-5.6 [facility] Work Phone: Comment on above: Normal < 5.7 % Predi abetic 5.7 - 6.4 % Diabetic >or= 6.5 % Please note range changes. Basophil percentageon 2021 Bilirubin [Mass/Vol] 0.40 mg/dL 0.20-1.00 [facility] Work Phone: Comment on above: For patients on eltr ombopag therapy, use of Dimension [place] TBIL is not recommended. Chloride [Moles/Vol] 104 mmol/L 98-107 [facility] Work Phone: Cholesterol [Mass/Vol] 244 mg/dL <200 [facility] Work Phone: Comment on above: <200 mg/dL Desirable 200-240 mg/dL Borderline >240 mg/dL High Risk Glucose [Mass/Vol] 97 mg/dL 74-106 [facility] Work Phone: Potassium [Moles/Vol] 3.8 mmol/L 3.5-5.1 [facility] Work Phone: Protein [Mass/Vol] 7.2 g/dL 6.4-8.2 [facility] Work Phone: Sodium [Moles/Vol] 139 mmol/L 136-145 [facility] Work Phone: Cholesterol in LDL Direct as say [Mass/Vol]on 04-20-2022 Cholesterol in LDL [Mass/Vol] 155 mg/dL 0-99 [facility] Work Phone: Comment on above: Performed at: [facility] [address] [place], [place] [id number] Director: Amaury Dean PhD, Phone: [phone] Laboratory - Chemistry and C hemistry - challengeon 04-20-2022 ALP [Catalytic activity/Vol] 81 U/L 45-117 [facility] Work Phone: ALT [Catalytic activity/Vol] 25 U/L 13-56 [facility] Work Phone: CO2 [Moles/Vol] 30.0 mmol/L 21.0-32.0 [facility] Work Phone: Globulin (S) [Mass/Vol] 3.2 g/dL 2.2-4.2 [facility] Work Phone: Urea nitrogen/Creatinine [Mass ratio] 14.2 mg/mg 10-20 [facility] Work Phone: Laboratory - Miscellaneous t estson 04-20-2022 Service comment (Unsp spec) [Interp] TNP [facility] Work Phone: Comment on above: Test not performed No Panel Informationon 04-20 Estimated GFR (MDRD) Amer 96 mL/min >60 [facility] Work Phone: Comment on above: GFR Calc Estimated GFR (MDRD) Non-Af Amer 80 mL/min >60 [facility] Work Phone: Comment on above: Non- GFR Calc Urine Microalbumin/Creatin ine Ratio 7.8 mg/g CRE <30 [facility] Work Phone: Serum or plasma albumin rehana urement (mass/volume)on 04-20-2022 Albumin [Mass/Vol] 4.0 g/dL 3.2-5.0 [facility] Work Phone: Serum or plasma albumin/glob ulin mass ratioon 04-20-2022 Albumin/Globulin [Mass ratio] 1.2 {ratio} 0.9-2.4 [facility] Work Phone: Serum or plasma calcium rehana urement (mass/volume)on 04-20-2022 Calcium [Mass/Vol] 9.0 mg/dL 8.5-10.1 [facility] Work Phone: Serum or plasma creatinine m easurement (mass/volume)on 04-20-2022 Creatinine [Mass/Vol] 0.77 mg/dL 0.55-1.02 [facility] Work Phone: Comment on above: The validity of the calculated GFR & GFRAA in patients over 70 years has not been determined. Clinical correlation is essential. Serum or plasma urea nitroge n measurement (mass/volume)on 04-20-2022 Urea nitrogen [Mass/Vol] 11 mg/dL 7-18 [facility] Work Phone: Thin prep Papanicolaou smear with manual screeningon 04-20-2022 Thin prep Papanicolaou smear with manual screening 21 U/L 15-37 [facility] Work Phone: Thin prep Papanicolaou smear with manual screening 5 5-15 [facility] Work Phone: Thin prep Papanicolaou smear with manual screening 9.8 mg/L NO RANGE EST. [facility] Work Phone: Urine creatinine measurement (mass/volume)on 04-20-2022 Creatinine (U) [Mass/Vol] 126.00 mg/dL NO RANGE EST. [facility] Work Phone: Whole blood hemoglobin A1c/t otal hemoglobin ratio (mass fraction)on 04-20-2022 HbA1c (Bld) [Mass fraction] 6.0 % 3.8-5.6 [facility] Work Phone: Comment on above: Normal < 5.7 % Predi abetic 5.7 - 6.4 % Diabetic >or= 6.5 % Please note range changes. Bacteria identified Cx Nom ( U)Ordered By: Abi Baker on 12-22-2021 [facility] Culture urineOrdered By: Bar Baker on 12-22-2021 Bacteria identified Cx Nom (U) Mixed jen, no uropathogens present. Suggest repeat specimen, if clinically indicated. [facility] Glucose Auto test strip (Bld ) [Mass/Vol]on 12-21-2021 Glucose POC 101 mg/dL 101 - 139 mg/dL [facility] Interpretation and review of laboratory results Normal Heyday POC Urine Auto W/O Microon 0 12-21-2021 Bilirubin UA POC n [facility] Blood UA POC n [facility] Glucose UA POC 2000 [facility] Interpretation and review of laboratory results Abnormal [facility] Ketones UA POC Negative Negative [facility] Leukocytes UA POC Negative [facility] Nitrite UA POC Negative Negative [facility] PH UA POC 5.0 [facility] Protein UA POC Negative Positive, Negative [facility] Specific [place] UA POC 1.005 [facility] Urobilinogen UA POC Negative [facility] Vital Signs Date Time Vital Sign Value Performing Clinician Jacinto seth 05-08-2023 14:55-0400 Body height 165.1 cm [facility] 02-26-2023 15:50-0400 Body height 165.1 cm [employer] Work Phone: [facility] 02-26-2023 15:50-0400 Body mass index (BMI) [Ratio] 23.13 kg/m2 [employer] Work Phone: [facility] 02-26-2023 15:50-0400 Body temperature 97.9 [degF] Иван [employer] PA Work Phone: [facility] 02-26-2023 15:50-0400 Body weight 63.05 kg [employer] PA Work Phone: [facility] 02-26-2023 15:50-0400 Diastolic blood pressure 74 mm[Hg] Иван [employer] PA Work Phone: [facility] 02-26-2023 15:50-0400 Heart rate 69 /min Иван [employer] PA Work Phone: [facility] 02-26-2023 15:50-0400 Respiratory rate 20 /min [employer] Work Phone: [facility] 02-26-2023 15:50-0400 SaO2% (BldA) [Mass fraction] 98 % Иван Mary PA Work Phone: [facility] 02-26-2023 15:50-0400 Systolic blood pressure 123 mm[Hg] Иван Mary PA Work Phone: [facility] 05-19-2022 13:31-0400 Body height 165.[address] Micheal Sierra Work Phone: [facility] Work Phone: 05-19-2022 13:31-0400 Body mass index (BMI) [Ratio] 23.4 kg/m2 Dr. Micheal Sierra Work Phone: [facility] Work Phone: 05-19-2022 13:31-0400 Body temperature 97.7 [degF] Dr. Micheal Sierra Work Phone: [facility] Work Phone: 05-19-2022 13:31-0400 Body weight 63.[address] Micheal Sierra Work Phone: [facility] Work Phone: 05-19-2022 13:31-0400 Diastolic blood pressure 76 mm[Hg] Dr. Micheal Sierra Work Phone: [facility] Work Phone: 05-19-2022 13:31-0400 Heart rate 75 /min Dr. Micheal Sierra Work Phone: [facility] Work Phone: 05-19-2022 13:31-0400 Respiratory rate 16 /min Dr. Micheal Sierra Work Phone: [facility] Work Phone: 05-19-2022 13:31-0400 SaO2% (BldA) [Mass fraction] 97 % Dr. Micheal Sierra Work Phone: [facility] Work Phone: 05-19-2022 13:31-0400 Systolic blood pressure 158 mm[Hg] Dr. Micheal Sierra Work Phone: [facility] Work Phone: 12-21-2021 18:34-0500 Body height 165.1 cm Peggy Saucedo [employer] Work Phone: [facility] 12-21-2021 18:34-0500 Body mass index (BMI) [Ratio] 22.47 kg/m2 Peggy Saucedo [employer] Work Phone: [facility] 12-21-2021 18:34-0500 Body temperature 97.9 [degF] Peggy Saucedo [employer] Work Phone: [facility] 12-21-2021 18:34-0500 Body weight 61.24 kg Peggy Saucedo [employer] Work Phone: [facility] 12-21-2021 18:34-0500 Heart rate 66 /min Peggy Saucedo [employer] Work Phone: [facility] 12-21-2021 18:34-0500 Respiratory rate 14 /min Peggy Saucedo [employer] Work Phone: [facility] 12-21-2021 18:34-0500 SaO2% (BldA) [Mass fraction] 98 % Peggy Saucedo [employer] Work Phone: [facility] Encounters Encounter Date Encounter Type Care Provider Facility Start: 05-01-2025 ambulatory Emma Camacho NP Facility :[facility] Start: 11-03-2024 End: 11-03-2024 ambulatory [facility] Start: 10-24-2024 End: 10-24-2024 ambulatory [facility] Facility:[facility] Start: 10-22-2024 End: 10-22-2024 ambulatory [facility] Start: 09-26-2024 ambulatory Cari Ceja Facility :[facility] Start: 09-12-2024 End: 09-12-2024 ambulatory Micheal Sierra Facility:[facility] Start: 06-25-2024 End: 06-25-2024 ambulatory Micheal Sierra Facility:[facility] Start: 05-08-2023 End: 05-08-2023 ambulatory [facility] Work Phone: Start: 05-08-2023 End: 05-08-2023 Patient encounter procedure [facility] Work Phone: Start: 02-26-2023 End: 02-26-2023 ambulatory MICHEAL Figueroa [facility] Start: 02-26-2023 End: 02-26-2023 Office outpatient visit 15 minutes Иван P Siwakoti PA Work Phone: [facility] Comment on above: Dysuria (Primary Dx) ; Urinary tract infection with hematuria, site unspecified Start: 02-26-2023 End: 02-26-2023 Patient encounter procedure Иван P Siwakoti PA Work Phone: [facility] Start: 09-18-2022 End: 09-18-2022 ambulatory [facility] Work Phone: Start: 09-18-2022 End: 09-18-2022 Patient encounter procedure [facility] Start: 05-22-2022 End: 05-22-[address] Micheal Sierra Work Phone: [facility], [facility] Start: 05-19-2022 End: 05-19-[address] Micheal Sierra Work Phone: [facility] Start: 04-20-2022 End: 04-20-2022 Patient encounter procedure [facility] [facility] Start: 12-21-2021 End: 12-21-2021 Office outpatient new 45 minutes Peggy Saucedo SYRUP BLENDER Work Phone: [facility] Comment on above: Bladder infection (P rimary Dx) Start: 12-21-2021 End: 12-21-2021 Patient encounter procedure Peggy Saucedo [employer]YRUP BLENDER Work Phone: [facility] Procedures Date Procedure Procedure Detail Performing Clinician Start: 05-08-2023 Dual energy X-ray absorptiometry Start: 05-08-2023 Screening mammography Start: 02-26-2023 Urnls dip stick/tabl et rgnt auto w/o microscopy Иван P Mary MOSLEY Work Phone: Start: 05-22-[address] Micheal Sierra Work Phone: Start: 12-21-2021 Gluc bld gluc mntr d ev cleared fda spec home use Peggy Saucedo [employer]YR[employer] BLENDER Work Phone: Start: 12-21-2021 Urnls dip stick/tabl et rgnt auto w/o microscopy Peggy Saucedo [employer]YR[employer] BLENDER Work Phone: Start: 12-21-2021 Culture bacterial quanttative colony count urine Peggy Saucedo [employer]YR[employer] BL[employer]ER Work Phone: Plan of Treatment Date Care Activity Detail Author Start: 06-15-2023 Influenza vaccination Influenz a Vaccine (Season Ended) [facility] Start: 2023 Falls Risk Assessment Falls Risk Ass essment [facility] Start: 04-05-2022 DTaP,Tdap,and Td Vaccines (2 - Td or Tdap) DTaP,Tdap,and Td Vaccines (2 - Td or Tdap) [facility] Start: 12-21-2021 Adolescent depressio n screening assessment Depression Screening [facility] Start: 12-21-2021 Hepatitis C screening Hepatitis C Sc reening [facility] Start: 12-21-2021 HIV screening HIV Screening [facility] Start: 12-21-2021 Medicare Annual Well ness Visit Medicare Annual Wellness Visit [facility] Start: 12-21-2021 Screening for malign ant neoplasm of breast Breast Cancer Screening [facility] Start: 12-21-2021 Screening for malign ant neoplasm of colon Colorectal Cancer Screening: Colonoscopy [facility] Start: 12-21-2021 Screening for osteoporosis Osteoporosis Screening (Bone Density Screening) [facility] Start: 12-21-2021 Social Influencers o f Health Screening Social Influencers of Health Screening [facility] Start: 10-17-2021 COVID-19 Vaccine (4 - Booster for Pfizer series) COVID-19 Vaccine (4 - Booster for Pfizer series) [facility] Start: 12-26-2014 Zoster Vaccines (2 of 3) Zoster Vacc marifer (2 of 3) [facility] Start: 04-05-2013 Pneumococcal Vaccine : 65+ Years (2 - PCV) Pneumococcal Vaccine: 65+ Years (2 - PCV) [facility] Start: 1979 Screening for malign ant neoplasm of cervix Cervical Cancer Screening: Pap Smear [facility] End: 02-27-2024 Bacteria identified in Urine by Culture Culture urine Microbiology Routine Dysuria 1 Occurrences starting 02/26/2023 until 02/27/2024 [facility] Work Phone: Comment on above: 1 Occurrences starti ng 02/26/2023 until 02/27/2024 Bacteria identified in Urine by Culture Culture urine Microbiology Routine Dysuria 02/26/2023 4:14 PM EDT [facility] Immunizations Immunization Date Immunization Notes Care Provider Adrian diaz 07-19-2021 influenza virus vaccine, unspecified formulation Иван Mary MOSLEY Work Phone: [facility] 01-13-2021 Covid (Pfizer) [facility] 12-23-2020 Covid (Pfizer) [facility] Payers Date Payer Category Payer Self-pay [id number] 2024 Unknown [id number] 2023 Medicare MEDICARE MEDICAR E PART A & B [id number] 2023-Present [address] [facility] [address] Medicare [id number] 2023 Medicare [id number] 2021 Medicaid [employer] [id number] 2021-Present [address] [place] [address] [id number] 2015 Private Health Insurance [facility] [id number] 1960 Unknown [id number] Unknown [id number] Unknown [id number] Unknown [id number] Unknown [id number] Unknown [id number] Unknown [id number] Unknown [id number] Unknown [id number] Unknown [id number] Unknown [id number] Social History Date Type Detail Facility Start: 10-10-2021 End: 05-19-2022 Tobacco smoking status RIIS Tobacco smoking consumption unknown [facility] Start: 1960 Sex Assigned At Not on file [facility] Start: 02-16-2023 End: 02-26-2023 Exposure to SARS-CoV-2 (event) Not sure [facility] Start: 04-07-2016 None [facility] Start: 04-07-2016 Spouse/ Signif icant Other [facility] Start: 02-18-2021 Non-smoker [facility] Start: 1960 Sex Assigned At Female [facility] Start: 02-26-2023 Tobacco smoking status NHIS Never smoked tobacco [facility] Start: 02-26-2023 Tobacco use and exposure Smokeless tobacco non-user [facility] Start: 02-26-2023 Alcohol intake Ex-drinker (finding) [facility] History of Present illness Narrative 02-26-2023 MELANY [...] 2 days History of Present Illness Leticia Gar is a 63 y.o. female who presents [...] 63 kg (139 lb) Height: 1.651 m (65) Physical Exam Vitals and nursing note reviewed. [...] guarding. Given patient presentation of UTI symptoms, [id number]-[id number] urine is collected which shows 2000+ of [...] each; Refill: 0 documented in this encounter [facility] History of Present illness Narrative 12-21-2021 Peggy Saucedo NP - 12/21/2021 6:15 PM Hortencia Saucedo, XENA - 12/21/2021 6:15 PM Hortencia Saucedo NP - 12/21/2021 6:15 PM Hortencia Saucedo, XENA - 12/21/2021 6:15 PM EST Note Date & Type Note Facility 12-21-2021 History of Presen t illness Narrative Arianna reviewed this chart previously Images from the original note were not included. SUBJECTIVE: Leticia Gar is a 61 y.o. female who complains [...] Where can you learn more? Go to [email or web address] alcocer Enter K848 in the search box to learn more about Urinary Tract Infection (UTI) in Women: Care Instructions. Current as of: November 24, 2020 Content Version: 13.1 [employer]. Care instructions adapted under license by your healthcare professional. If you have questions about a medical condition or this instruction, always ask your healthcare professional. [employer] disclaims any warranty or liability for your [...] cold sore as well. Patient ID: Leticia Gar is a 61 y.o. female. 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 Procedures Assessment/Plan SUBJECTIVE: Leticia Gar is a 61 y.o. female who complains [...] improve as anticipated. Subjective Patient ID: Leticia Gar is a 61 y.o. female. HPI Review of Systems Objective Physical Exam Procedures Assessment/Plan documented in this encounter [facility] Evaluation note Note Date & Type Note Facility Evaluation note Diagnosis Bladder infection- Primary Unspecified cystitis documented in this encounter [facility] Evaluation note Note Date & Type Note Facility Evaluation note No assessment information availa ble [facility] Work Phone: Evaluation note Note Date & Type Note Facility Evaluation note Diagnosis Onset Date Dysphagia acute GERD (gastroesophageal reflux disease) acute [facility] Work Phone: Evaluation note Note Date & Type Note Facility Evaluation note Diagnosis Dysuria- Primary Urinary tract infection with hematuria, site unspecified documented in this encounter [facility] Instructions Attachments Note Date & Type Note Facility Instructions The following attachments cannot be sent through Care Everywhere.UTI (Urinary Tract Infection): Female (Slovak)documented in this encounter [facility] Advance Directives No Advanced Directives Records FoundDocuments on File Type Date 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 Advance Directive Response Recorded Date/ Time Advance Directives No April 07 11:43pm Living Will Yes February 18, 2021 2: 25pm Power of Airset Molder Yes February 18, 2021 2:25pm Advance Directive Response Recorded Date/ Time Advance Directives No April 07 10:43pm Living Will Yes February 18, 2021 1: 25pm Power of Airset Molder Yes February 18, 2021 1:25pm Family History No Family History Records Found Relationship Condition Age at Onset Recorded Date/T mikey Not Specified Diabetes mellitus Unknown Cardiac disease Unknown Malignant neoplasm Unknown Hypertension Unknown Chief Complaint and Reason for Visit Chief Complaint Upper Scope/Dysphagi a DYSPHAGIA Reason for Visit Dysphagia GERD (gastroesophageal reflux disease) Chief Complaint OSTEOPOROSIS, SCREEN ING Summary Purpose Additional Source Comments Reason for Visit (unrecogniz ed section and content) Reason Comments UTI burning bodyaches an d odor X 1d. 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 Micheal Sierra MD Family Provider Active Dr. Micheal Sierra MD Primary Care Provider Active Team Status: Inactive Member Role Status Dates Dr. Micheal Sierra MD Primary Care Provide r, Attending Provider, Referring Provider Active Goals (unrecognized section and content) Goals may be documented in a n alternate sectionGoals may be documented in an alternate sectionGoals may be documented in an alternate sectionGoals may be documented in an alternate section Ordered Prescriptions (unrec ognized section and content) Prescription Sig Dispensed Refills Start Date End Da te phenazopyridine (PYRIDIUM) 100 mg tabletIndications:Dysuria ,Urinary tract infection with hematuria, site unspecified Take 1 tablet (100 mg total) by mouth 3 (three) times a day if needed for bladder spasms for up to 2 days. 6 each 0 02/26/2023 02/28/2023 cephalexin (KEFLEX) 500 mg capsuleIndications:Dysuri a,Urinary tract infection with hematuria, site unspecified Take 1 capsule (500 mg total) by mouth 2 (two) times a day for 7 days. 14 each 0 02/26/2023 03/05/2023 INFORMATION SOURCE (unrecogn ized section and content) DATE CREATED AUTHOR 03/25/2023 Jeff Del Val[facility] DATE CREATED AUTHOR AUTHOR'S JESSIKA PETERS 04/27/2025 [facility] FOR RECORDS PERTAINING TO PATIENTS WHO ARE [...] BE BASED ON THE PRIMARY CLINICAL RECORDS. [employer] provides no warranty or guarantee of the accuracy or completeness of information in this document.
== END | disposition home or self-care (01) ==
LOC: OPBI 10:21
PROVIDERS: PCP Family Medicine; Referring Provider Nurse Practitioner Family; Visit Provider Nurse Practitioner Family
DX: Z12.31 Encounter for screening mammogram for malignant neoplasm of breast (principal)
CPT/HCPCS: 77063; 77067

== ENCOUNTER → 2025-05-14 | Outpatient (CLI) | payer MEDICARE, OTHER, SELFPAY ==
--- NOTE | 2025-05-14 09:25 | US_ITS ---
PROCEDURE: BREAST LIMITED UNILATERAL 05/14/2025 REASON FOR EXAM: F, Age 65 y/o , ABN MAMM COMPARISON: Prior mammogram done earlier in the day.. TECHNIQUE: BREAST LIMITED UNILATERAL. The upper half of the left breast was examined with ultrasound. FINDINGS: There is dense fibroglandular tissue. No sonographic abnormality is seen. US/Breast Limited Unilateral IMPRESSION: No sonographic abnormality is seen. BI-RADS 1: NEGATIVE RECOMMENDATION: Routine annual follow-up in 1 Year Reading Location: [id number]
--- NOTE | 2025-05-14 09:25 | BI_ITS ---
EXAM: DIAG MAMM W/CAD, UNILAT 05/14/2025 CLINICAL HISTORY: F, Age 65 y/o , ABN MAMM. Focal asymmetry in the central left breast. TECHNIQUE: DIAG MAMM W/CAD, UNILAT. 90 degree lateral as well as compression spot views of the left breast were obtained. COMPARISON: Prior exam(s) dated prior mammogram dated May 01, 2025.. FINDINGS: TISSUE DENSITY: There are scattered areas of fibroglandular density. Bilateral Breast Mammographic Findings: No significant masses, calcifications or other abnormalities are identified. No suspicious masses, areas of developing architectural distortion, or suspicious calcifications. There has been no significant interval change. BI/DIAG MAMM W/CAD, UNILAT IMPRESSION: No suspicious abnormality is seen. Targeted sonographic correlation recommende d. OVERALL FINAL ASSESSMENT BI-RADS 0: INCOMPLETE - NEED ADDITIONAL IMAGING EVALUATION. RECOMMENDATION: Ultrasound Recommended A letter with findings and recommendations will be mailed to the patient. Reading Location: [facility]
--- OUTSIDE RECORDS SUMMARY | 2025-05-14 11:30 | XMS RPT_ITS | CCD ---
Author Organization [facility] Care Team Providers Care Business Account Manager Name Role Phone Micheal Sierra MD Primary Care Provider [phone] Dr. Micheal Sierra Primary Care Provider [phone] Dr. Micheal Sierra Referring Provider [phone] Ivis Menjivar Attending Provider [phone] Rigo RODRIGUEZ, Micheal Marti Primary Care Provider [phone] MICHEAL SIERRA Primary Care Unavailable ИВАН BAL Attending Unavailable Dr. Micheal Sierra MD Primary Care Provider [phone] Doug RVDA MASTER CERTIFIED RV TECHNICIAN-C, Emma Attending Provider [phone] Doug RVDA MASTER CERTIFIED RV TECHNICIAN-C, Emma Referring Provider Sierra, Micheal Primary Care Unavailable Doug RVDA MASTER CERTIFIED RV TECHNICIAN, Emma Attending Unavailable Doug RVDA MASTER CERTIFIED RV TECHNICIAN, Emma Referring Unavailable Sierra, Micheal Primary Care Unavailable Cari Ceja Attending Unavailable Sierra, Micheal Referring Unavailable Sierra, Micheal Primary Care Unavailable PraSam mathews Attending Unavailable Sierra, Micheal Referring Unavailable Prah, Sam Attending Unavailable Sierra, Micheal Primary Care Unavailable Sierra, Micheal Attending Unavailable Sierra, Mciheal Primary Care Unavailable Sierra, Micheal Attending Unavailable Sierra, Micheal Referring Unavailable Sierra, Micheal Primary Care Unavailable PrahSam Attending Unavailable Prabisi, Sam Referring Unavailable Sierra, Micheal Primary Care Unavailable Sierra, Micheal Primary Care Unavailable Doug RVDA MASTER CERTIFIED RV TECHNICIAN, Emma Attending Unavailable Doug RVDA MASTER CERTIFIED RV TECHNICIAN, Emma Referring Unavailable Prah, Sam Attending Unavailable Prah, Sam Referring Unavailable Sierra, Micheal Primary Care Unavailable Allergies Allergy Classification Reported Allergen(s) Allergy Type Date of Onset Reaction(s) Facility (3 sources) Sulfamethoxazole / Trimethoprim; Translations: [SULFAMETHOXAZOLE-TR IMETHOPRIM] Drug Allergy 2 [facility] (5 sources) Metoclopramide Drug Allergy 1 restless [facility] (5 sources) Sulfamethoxazole Drug Allergy 1 [facility] (5 sources) Trimethoprim Drug Allergy 1 [facility] (3 sources) Amoxicillin; Translations: [AMOXICILLIN] Drug Allergy 3 [facility] (1 source) Escitalopram Drug Allergy 5 weight gain [facility] (1 source) PARoxetine Drug Allergy 5 weight gain [facility] (1 source) Amoxicillin Drug Allergy 5 [facility] (1 source) Escitalopram Drug Allergy 5 [facility] (1 source) Metoclopramide Drug Allergy 5 [facility] (1 source) PARoxetine Drug Allergy 5 [facility] (1 source) Sulfamethoxazole Drug Allergy 5 [facility] (1 source) Trimethoprim Drug Allergy 5 [facility] Repository Medications Current Medications Medication Drug Class(es) Dates Sig (Normalized) Sig (Original) aspirin 81 mg delayed release oral tablet (1 source) Platelet Aggregation Inhibitor, Nonsteroidal Anti-inflammatory Drug Start: 10-22-2024 Aspirin (Adult Low Dose Aspirin) 81 mg tablet,delayed release (DR/EC) Active 81 mg PO daily October 22, 2024 1:00am cephalexin 500 mg oral capsule (1 source) Cephalosporin Antibacterial Start: 02-26-2023 End: 03-05-2023 take 1 capsule by mouth twice daily cephalexin (KEFLEX) 500 mg capsule Indications: Dysuria , Urinary tract infection with hematuria, site unspecified Take 1 capsule (500 mg total) by mouth 2 (two) times a day for 7 days. 14 each 0 02/26/2023 03/05/2023 Active clobetasol propionate 0.5 mg/ml topical cream (1 source) Corticosteroid Start: 10-22-2024 Clobetasol 0.05 % cream Active 1 NMA TOPICAL daily as needed October 22, 2024 1:00am dapagliflozin 10 mg oral tablet (1 source) Sodium-Glucose Cotransporter 2 Inhibitor Start: 09-26-2024 take 1 tablet by mouth once daily in the morning Dapagliflozin Propanediol (Farxiga) 10 mg tablet Active 10 mg PO EVERY MORNING September 26, 2024 1:00am diclofenac sodium 0.01 mg/mg topical gel (1 source) Nonsteroidal Anti-inflammatory Drug Start: 09-26-2024 apply 2 g topically once Diclofenac Sodium 1 % gel Active 2 g TOPICAL ONCE September 26, 2024 1:00am apply to single elbow, wrist or hand; for hand includes palm/fingers/back of hand estradiol 0.1 mg/ml vaginal cream (2 sources) Estrogen Start: 10-22-2024 Estradiol 0.01 % (0.1 mg/gram) cream Active 1 g VAGINAL 3 TIMES A WEEK October 22, 2024 1:00am Start: 09-26-2024 End: 10-22-2024 take 1 tablet by mouth once daily Estradiol (Estrace) 1 mg tablet Discontinued 1 mg PO daily September 26, 2024 1:00am October 22, 2024 4:25pm off 1 week; repeat cycle FLUoxetine 20 mg oral tablet (9 sources) Serotonin Reuptake Inhibitor Start: 10-22-2024 Fluoxetine 20 mg tablet Active 50 mg PO DAILY October 22, 2024 4:25pm Start: 04-07-2016 End: 10-22-2024 take 30-40 mg by mouth once daily Fluoxetine 20 MG tablet Discontinued 30 - 40 mg PO DAILY April 07, 2016 12:00am October 22, 2024 4:29pm End: 12-23-2021 fluoxetine HCl (PROZAC ORAL) Take by mouth. 0 12/23/2021 Discontinued gabapentin 600 mg oral tablet (8 sources) Anti-epileptic Agent Start: 02-18-2021 take 1 tablet by mouth at bedtime Gabapentin 600 mg Tablet Active 600 mg PO AT BEDTIME February 18, 2021 12:00am End: 12-23-2021 GABAPENTIN ORAL Take by mout h. 0 12/23/2021 Discontinued ibandronic acid 150 mg oral tablet (1 source) Bisphosphonate Start: 09-26-2024 take 1 tablet by mouth every month Ibandronate 150 mg tablet Active 150 mg PO EVERY MONTH September 26, 2024 1:00am indapamide 1.25 mg oral tablet (1 source) Thiazide-like Diuretic Start: 09-26-2024 take 1 tablet by mouth once daily in the morning Indapamide 1.25 mg tablet Active 1.25 mg PO EVERY MORNING September 26, 2024 1:00am 24 hr metoprolol succinate 50 mg extended release oral tablet (1 source) beta-Adrenergic Negra Start: 10-22-2024 take 1 tablet by mouth once daily Metoprolol Succinate 50 mg tablet extended release 24 hr Active 50 mg PO daily October 22, 2024 1:00am phenazopyridine hydrochloride 100 mg oral tablet (6 sources) Start: 02-26-2023 End: 02-28-2023 take 1 [...] 1 tablet by mouth three times daily as needed for pain Phenazopyridine (Pyridium) 200 mg tablet Discontinued 200 mg PO THREE TIMES A DAY as needed for pain 6 0 October 10, 2021 1:00am May 19, 2022 1:54pm quinapril 20 mg oral tablet (3 sources) Angiotensin Converting Enzyme Inhibitor Start: 11-14-2021 take 1 tablet by mouth once daily quinapriL (ACCUPRIL) 20 mg tablet Take 20 mg by mouth 1 (one) time each day. 0 11/14/2021 Active End: 12-23-2021 quinapril HCl (QUINAPRIL ORA L) Take by mouth. 0 12/23/2021 Discontinued tacrolimus 0.0003 mg/mg topical ointment (1 source) Calcineurin Inhibitor Immunosuppressant Start: 10-22-2024 Tacrolimus 0.03 % ointment Active 1 NMA TOPICAL TWICE A DAY as needed October 22, 2024 1:00am Completed/Discontinued Medications Medication Drug Class(es) Dates Sig (Normalized) Sig (Original) calcipotriene 0.33996 mg/mg topical ointment (1 source) Vitamin D Analog Start: 09-26-2024 End: 10-22-2024 Calcipotriene 0.005 % ointment Discontinued 1 NMA TOPICAL daily September 26, 2024 1:00am October 22, 2024 4:28pm rub in gently and completely cholecalciferol 0.05 mg chewable tablet (5 sources) Vitamin D Start: 02-13-2018 End: 09-26-2024 take 2 tablets by mouth once daily Cholecalciferol (Vitamin D3) 2,000 UNIT tablet,chewable Discontinued 4000 U PO DAILY February 13, 2018 12:00am September 26, 2024 11:54am Start: 02-13-2018 take 4000 [IU] by mo [facility] once daily Cholecalciferol (Vitamin D3) Active 4000 UNIT PO DAILY February 13, 2018 12:00am ciprofloxacin 500 mg oral tablet (5 sources) Quinolone Antimicrobial Start: 10-10-2021 End: 05-19-2022 take 1 tablet by mouth twice daily Ciprofloxacin Hcl 500 mg tablet Discontinued 500 mg PO TWICE A DAY 14 0 October 10, 2021 1:00am May 19, 2022 1:54pm doxycycline hyclate 100 mg delayed release oral tablet (5 sources) Tetracycline-class Drug Start: 02-18-2021 End: 05-19-2022 take 1 tablet by mouth twice daily Doxycycline Hyclate 100 mg Tablet,Delayed Release (Dr/Ec) Discontinued 100 mg PO TWICE A DAY February 18, 2021 12:00am May 19, 2022 1:54pm empagliflozin 25 mg oral tablet (5 sources) Sodium-Glucose Cotransporter 2 Inhibitor Start: 02-18-2021 End: 10-22-2024 take 1 tablet by mouth once daily Empagliflozin (Jardiance) 25 mg Tablet Discontinued 25 mg PO DAILY February 18, 2021 12:00am October 22, 2024 4:28pm hydrOXYzine hydrochloride 25 mg oral tablet (1 source) Antihistamine Start: 09-26-2024 End: 10-22-2024 take 1 tablet by mouth at bedtime Hydroxyzine Hcl 25 mg tablet Discontinued 25 mg PO AT BEDTIME September 26, 2024 1:00am October 22, 2024 4:28pm ammonium lactate 120 mg/ml topical cream (1 source) Start: 09-26-2024 End: 10-22-2024 Ammonium Lactate 12 % cream Discontinued 1 NMA TOPICAL daily September 26, 2024 1:00am October 22, 2024 4:28pm Levomefolate-Algal Oil (L-Methylfolate Forte) 7.5-90.314 mg capsule (1 source) Start: 09-26-2024 End: 10-22-2024 take 7.5-90.314 mg by mouth once daily Levomefolate-Algal Oil (L-Methylfolate Forte) 7.5-90.314 mg capsule Discontinued 1 NMA PO daily September 26, 2024 1:00am October 22, 2024 4:28pm lisinopril 20 mg oral tablet (5 sources) Angiotensin Converting Enzyme Inhibitor Start: 04-07-2016 End: 09-26-2024 take 10 mg by mouth once daily Lisinopril 20 MG tablet Discontinued 10 mg PO DAILY April 07, 2016 12:00am September 26, 2024 11:54am Start: 04-07-2016 take 10 mg by mouth once daily Lisinopril Active 10 MG PO DAILY April 07, 2016 12:00am nebivolol 5 mg oral tablet (1 source) Start: 09-26-2024 End: 10-22-2024 take 1 tablet by mouth once daily Nebivolol 5 mg tablet Discontinued 5 mg PO daily September 26, 2024 1:00am October 22, 2024 4:28pm ondansetron 4 mg disintegrating oral tablet (5 sources) Serotonin-3 Receptor Antagonist Start: 05-15-2018 End: 10-22-2024 take 1 tablet by mouth every eight hours as needed for nausea Ondansetron 4 MG tablet Discontinued 4 mg PO EVERY 8 HOURS NEEDED as needed for Nausea May 15, 2018 12:00am October 22, 2024 4:28pm pantoprazole 40 mg delayed release oral tablet (4 sources) Proton Pump Inhibitor Start: 05-19-2022 End: 10-22-2024 take 1 tablet by mouth once daily Pantoprazole 40 mg tablet,delayed release (DR/EC) Discontinued 40 mg PO DAILY 30 0 May 19, 2022 12:00am October 22, 2024 4:28pm predniSONE 20 mg oral tablet (5 sources) Start: 02-18-2021 End: 05-19-2022 take 2 tablets by mouth once daily Prednisone 20 mg Tablet Discontinued 40 mg PO DAILY February 18, 2021 12:00am May 19, 2022 1:53pm Start: 02-18-2021 End: 05-19-2022 take 40 mg by mouth once daily Prednisone Discontinued 40 MG PO DAILY February 18, 2021 12:00am May 19, 2022 1:53pm triamcinolone acetonide 1 mg/ml topical cream (3 sources) Corticosteroid Start: 09-26-2024 End: 10-22-2024 Triamcinolone Acetonide 0.1 % cream Discontinued 1 NMA TOPICAL daily September 26, 2024 1:00am October 22, 2024 4:29pm Start: 11-14-2021 triamcinolone (KENALOG) 0.025 % cream APPLY THINLY TWICE DAILY UNTIL IMPROVED, THEN AT BEDTIME FOR 1 WEEK, THEN TWICE WEEKLY TO PREVENT 0 11/14/2021 Active Problems Active Problems Problem Classification Problem Date Documented Da te Episodic/Chronic Diabetes mellitus without complication (5 sources) Type 2 diabetes mellitus; Translations: [Type 2 diabetes mellitus without complications] 02-20-2018 Chronic Esophageal disorders (5 sources) Gastroesophageal reflux disease; Translations: [Gastro-esophageal reflux disease without esophagitis] Chronic Essential hypertension (6 sources) Hypertensive disorder; Translations: [Essential (primary) hypertension] Onset: 02-20-2018 Chronic Mood disorders (5 sources) Depressive disorder; Translations: [Depression] 02-20-2018 Chronic Other and unspecified benign neoplasm (5 sources) History of polyp of colon; Translations: [Personal history of colonic polyps] 02-23-2021 Episodic Other gastrointestinal disorders (4 sources) Dysphagia; Translations: [Dysphagia, unspecified] 05-19-2022 Episodic Other gastrointestinal disorders (1 source) Dysphagia, unspecified; Translations: [Dysphagia, unspecified] Episodic Other hematologic conditions (1 source) Erythrocytosis; Translations: [Secondary polycythemia] 11-03-2024 Episodic Comment on above: Discussed causes of Polycythemia, normal HGB on 10/22/2024. US 10/24/2024 shows fatty liver.She has normal Blood count with normal erythropoietin level. Other liver diseases (1 source) Steatosis of liver; Translations: [Fatty (change of) liver, not elsewhere classified] 11-03-2024 Chronic Other screening for suspected conditions (not mental disorders or infectious disease) (2 sources) Other abnormal and inconclusive findings on diagnostic imaging of breast; Translations: [Encounter for screening mammogram for malignant neoplasm of breast] Onset: Episodic Past or Other Problems Problem Classification Problem Date Documented Da te Episodic/Chronic Genitourinary symptoms and ill-defined conditions (9 sources) Dysuria; Translations: [Painful micturition, unspecified] Onset: 02-26-2023 Episodic Other hematologic conditions (2 sources) Secondary polycythemia; Translations: [Secondary polycythemia] Onset: 11-03-2024 Episodic Urinary tract infections (11 sources) Infective cystitis; Translations: [Cystitis, unspecified without hematuria] Onset: 12-23-2021 Episodic Results Test Name Value Interpretation Reference Range Facility Breast imaging reportOrdered By: Emma Palacios on 05-01-2025 Study report [facility] Imaging Services [address] [place] [address] SCRN MAMM (CAD)W/TINY BILAT MR#: [id number] Acct: [id number] Name: LETICIA GAR Rep #: [id number] : 1960 F 65 From: Erin Palacios MD PCP: Dr[facility] Micehal Sierra MD [facility] Study:SCRN MAMM (CAD)W/TINY BILAT Date of Exa m: 05/01/25 Exam# [id number] Ordering Dr: Ct Camacho RVDA MASTER CERTIFIED RV TECHNICIAN RVDA MASTER CERTIFIED RV TECHNICIAN-C EXAM: SCRN MAMM (CAD)W/TINY BILAT DATE: 05/01/2025 CLINICAL HISTORY: F, Age 65 y/o , SCREENING TECHNIQUE: SCRN MAMM (CAD)W/TINY BILAT COMPARISON: Prior exam(s) dated 05/08/2023, 12/22/2020, 11/05/2019. FINDINGS: TISSUE DENSITY: There are scattered areas of fibroglandular density. Bilateral Breast Mammographic Findings: There is an asymmetry with associated distortion in the central left breast at middle depth visualized on the CC view. No significant masses, calcifications or other abnormalities are identified in the right breast. BI/SCRN MAMM (CAD)W/TINY BILAT IMPRESSION: The asymmetry with associated distortion in the central left breast requires further evaluation. Recommend diagnostic mammogram of the left breast and ultrasound on the day of diagnostic if indicated. OVERALL FINAL ASSESSMENT BI-RADS 0: INCOMPLETE - NEED ADDITIONAL IMAGING EVALUATION. RECOMMENDATION: Additional Views obtained/call backs A letter with findings and recommendations will be mailed to the patient. Reading Location: [facility] CC: RVDA MASTER CERTIFIED RV TECHNICIAN-C Emma Camacho; Dr. Micheal Sierra MD ~ Computer Programmer Chief: Signed [facility] SCRN MAMM (CAD)W/TINY BILATo n 05-01-2025 SCRN MAMM (CAD)W/TINY BILAT [facility] Imaging Services [address] [place] [address] SCRN MAMM (CAD)W/TINY BILAT MR#: [id number] Acct: [id number] Name: LETICIA GAR Rep #: [id number] : 1960 F 65 From: Emma Palacios MD PCP: Dr. Micheal Sierra MD Status: REG CLI Study: SCRN MAMM (CAD)W/TINY BILAT Date of Exam: 04/14 06/08 Exam# [id number] Ordering Dr: Emma Camacho NP RVDA MASTER CERTIFIED RV TECHNICIAN-C EXAM: SCRN MAMM (CAD)W/TINY BILAT DATE: 05/01/2025 CLINICAL HISTORY: F, Age 65 y/o , SCREENING TECHNIQUE: SCRN MAMM (CAD)W/TINY BILAT COMPARISON: Prior exam(s) dated 05/08/2023, 12/22/2020, 11/05/2019. FINDINGS: TISSUE DENSITY: There are scattered areas of fibroglandular density. Bilateral Breast Mammographic Findings: There is an asymmetry with associated distortion in the central left breast at middle depth visualized on the CC view. No significant masses, calcifications or other abnormalities are identified in the right breast. BI/SCRN MAMM (CAD)W/TINY BILAT IMPRESSION: The asymmetry with associated distortion in the central left breast requires further evaluation. Recommend diagnostic mammogram of the left breast and ultrasound on the day of diagnostic if indicated. OVERALL FINAL ASSESSMENT BI-RADS 0: INCOMPLETE - NEED ADDITIONAL IMAGING EVALUATION. RECOMMENDATION: Additional Views obtained/call backs A letter with findings and recommendations will be mailed to the patient. Reading Location: [id number] CC: FREDY Camacho; Dr. Micheal Sierra MD Computer Programmer Chief: Signed Normal [facility] Oncology Visit Reporton 10-16 Oncology Visit Report [facility] [place] [address] OFFICE VISIT Date of Service: 11/03/24 0853 MR#: [id number] Acct: [id number] Name: LETICIA GAR Rep #: [id number] : 1960 From: Sam Venegas MD Age/Sex: 64/F Location: [facility] [place] Status: Signed HPI Subjective Date of Service 11/03/24 Chief Complaint F/u for Polycythemia. History of Present Illness 64y.o.woman was found to have persistently high HGB level and referred for further evaluation. Denies fever, weight loss or night sweats, family history of blood disease. She had Abdominal US and blood work done, comes for follow up. Feels well. [facility] Medical History Psoriatic arthritis TMJ (dislocation of [...] QAM 09/26/24 (more content not included)... Normal [facility] Abdomen Completeon Abdomen Complete [facility] Imaging Services [address] [place], [place] [address] Abdomen Complete MR#: [id number] Acct: [id number] Name: LETICIA GAR Rep #: [id number] : 1960 F 64 From: Johny paez MD PCP: Dr. Micheal Sierra MD Status: REG CLI Study: Abdomen Complete Date of Exam: 10/24/24 Exam# [id number] Ordering Dr: Sma Venegas MD [id number] STUDY: ABDOMINAL ULTRASOUND REASON FOR EXAM: Female, [...] Micheal Sierra MD; Dr. Sam Venegas MD Computer Programmer Chief: Signed Normal [facility] Erythropoietinon 10-24-2024 ERYTHROPOIETIN 15.1 mIU/mL Normal 2.6-18.5 [facility] Comment on above: Result Comment: [employer] Uni[employer]el DxI 800 Immunoassay System Values obtained with different assay methods or kits cannot be used interchangeably. Results cannot be interpreted as absolute evidence of the presence or absence of malignant disease. Performed at: [address] [id number] Forging Roll Operator: Amaury Dean PhD, Phone: [phone] Performed By: #### L 503.0105, L504.2610, L101.9900, L100.0100, L500.4050, L100.9950, L501.6710, L3100.1350, L400.0001, L506.0250 ####[facility] [address] [place], [address] CBC W/Diff, Automatedon 01-0 8-2024 Absolute Lymph 1.32 X10 3/uL Normal 0.83-4.51 [facility] Comment on above: Performed By: #### L 503.0105, L504.2610, L101.9900, L100.0100, L500.4050, L100.9950, L501.6710, L3100.1350, L400.0001, L506.0250 #### [facility] [address] [place], [address] Absolute Neut 3.5 X10 3/uL Normal 2.0-7.7 [facility] Comment on above: Performed By: #### L 503.0105, L504.2610, L101.9900, L100.0100, L500.4050, L100.9950, L501.6710, L3100.1350, L400.0001, L506.0250 #### [facility] [address] [place], [address] Basophils/100 WBC (Bld) 0.9 % Normal 0-1 [facility] Comment on above: Performed By: #### L 503.0105, L504.2610, L101.9900, L100.0100, L500.4050, L100.9950, L501.6710, L3100.1350, L400.0001, L506.0250 #### [facility] [address] [place], [address] Eosinophils/100 WBC (Bld) 2.4 % Normal 0-5 [facility] Comment on above: Performed By: #### L 503.0105, L504.2610, L101.9900, L100.0100, L500.4050, L100.9950, L501.6710, L3100.1350, L400.0001, L506.0250 #### [facility] [address] [place], [place], [id number] Erythrocyte distribution width (RBC) [Ratio] 12.4 % Normal 11.6-14.6 [facility] Comment on above: Performed By: #### L 503.0105, L504.2610, L101.9900, L100.0100, L500.4050, L100.9950, L501.6710, L3100.1350, L400.0001, L506.0250 #### [facility] [address] [place], [place], [id number] Hematocrit (Bld) [Volume fraction] 42.7 % Normal 37-47 [facility] Comment on above: Performed By: #### L 503.0105, L504.2610, L101.9900, L100.0100, L500.4050, L100.9950, L501.6710, L3100.1350, L400.0001, L506.0250 #### [facility] [address] [place], [place], [id number] Hemoglobin (Bld) [Mass/Vol] 14.7 g/dL Normal 12.0-15.0 [facility] Comment on above: Performed By: #### L 503.0105, L504.2610, L101.9900, L100.0100, L500.4050, L100.9950, L501.6710, L3100.1350, L400.0001, L506.0250 #### [facility] [address] [place], [place], [id number] IG% 0.200 Normal 0.0-0.9 [facility] Comment on above: Result Comment: IG% - Immature Granulocytes (promyelocytes, myelocytes and metamyelocytes) > 1% indicates that a LEFT SHIFT is Present. Performed By: #### L 503.0105, L504.2610, L101.9900, L100.0100, L500.4050, L100.9950, L501.6710, L3100.1350, L400.0001, L506.0250 #### [facility] [address] [place], [address] Lymphocytes/100 WBC (Bld) 23.9 % Normal 19-41 [facility] Comment on above: Performed By: #### L 503.0105, L504.2610, L101.9900, L100.0100, L500.4050, L100.9950, L501.6710, L3100.1350, L400.0001, L506.0250 #### [facility] [address] [place], [address] MCH (RBC) [Entitic mass] 29.9 pg Normal 27.0-32.0 [facility] Comment on above: Performed By: #### L 503.0105, L504.2610, L101.9900, L100.0100, L500.4050, L100.9950, L501.6710, L3100.1350, L400.0001, L506.0250 #### [facility] [address] [place], [address] MCHC (RBC) [Mass/Vol] 34.4 g/dL Normal 32-36 [facility] Comment on above: Performed By: #### L 503.0105, L504.2610, L101.9900, L100.0100, L500.4050, L100.9950, L501.6710, L3100.1350, L400.0001, L506.0250 #### [facility] [address] [place], [address] MCV (RBC) [Entitic vol] 86.8 fL Normal 81-99 [facility] Comment on above: Performed By: #### L 503.0105, L504.2610, L101.9900, L100.0100, L500.4050, L100.9950, L501.6710, L3100.1350, L400.0001, L506.0250 #### [facility] [address] [place], [address] Monocytes/100 WBC (Bld) 9.0 % Normal 0-10 [facility] Comment on above: Performed By: #### L 503.0105, L504.2610, L101.9900, L100.0100, L500.4050, L100.9950, L501.6710, L3100.1350, L400.0001, L506.0250 #### [facility] [address] [place], [address] Neutrophils/100 WBC (Bld) 63.6 % Normal 47-70 [place] [facility] Comment on above: Performed By: #### L 503.0105, L504.2610, L101.9900, L100.0100, L500.4050, L100.9950, L501.6710, L3100.1350, L400.0001, L506.0250 #### [facility] [address] [place], [address] Nucleated RBC (Bld) [#/Vol] 0 10*3/uL Normal 0-5 [facility] Comment on above: Performed By: #### L 503.0105, L504.2610, L101.9900, L100.0100, L500.4050, L100.9950, L501.6710, L3100.1350, L400.0001, L506.0250 #### [facility] [address] [place], [address] Platelet mean volume (Bld) [Entitic vol] 10.7 fL Normal 6.2-12.0 [facility] Comment on above: Performed By: #### L 503.0105, L504.2610, L101.9900, L100.0100, L500.4050, L100.9950, L501.6710, L3100.1350, L400.0001, L506.0250 #### [facility] [address] [place], [address] Platelets (Bld) [#/Vol] 190 10*3/uL Normal 150-450 [facility] Comment on above: Performed By: #### L 503.0105, L504.2610, L101.9900, L100.0100, L500.4050, L100.9950, L501.6710, L3100.1350, L400.0001, L506.0250 #### [facility] [address] [place], [address] RBC (Bld) [#/Vol] 4.92 10*6/uL Normal 4.2-5.4 [facility] Comment on above: Performed By: #### L 503.0105, L504.2610, L101.9900, L100.0100, L500.4050, L100.9950, L501.6710, L3100.1350, L400.0001, L506.0250 #### [facility] [address] [place], [address] RDW SD 39.3 fl Normal 35.1-43.9 [facility] Comment on above: Performed By: #### L 503.0105, L504.2610, L101.9900, L100.0100, L500.4050, L100.9950, L501.6710, L3100.1350, L400.0001, L506.0250 #### [facility] [address] [place], [address] WBC (Bld) [#/Vol] 5.5 10*3/uL Normal 4.4-11.0 [facility] Comment on above: Performed By: #### L 503.0105, L504.2610, L101.9900, L100.0100, L500.4050, L100.9950, L501.6710, L3100.1350, L400.0001, L506.0250 #### [facility] [address] [place], [address] CRPon 10-22-2024 C-REACTIVE PROT < 2.90 Normal 0.0-3.0 [facility] Comment on above: Order Comment: UNKNO WN1N Result Comment: C-Re active Protein (CRP) provides useful information for the diagnosis, therapy and monitoring of inflammatory processes and associated diseases. For the evaluation of Relative Risk for Cardiovascular Disease, a High Sensitivity CRP (HSCRP) should be ordered. Performed By: #### L 503.0105, L504.2610, L101.9900, L100.0100, L500.4050, L100.9950, L501.6710, L3100.1350, L400.0001, L506.0250 ####[facility] [address] [place], [place], [phone] Comprehensive Metabolic Prof ilon 10-22-2024 Albumin [Mass/Vol] 4.0 g/dL Normal 3.2-5.0 [facility] Comment on above: Order Comment: UNKNO WN1N Performed By: #### L 503.0105, L504.2610, L101.9900, L100.0100, L500.4050, L100.9950, L501.6710, L3100.1350, L400.0001, L506.0250 ####[facility] [address] [place], [place], [phone] Albumin/Globulin [Mass ratio] 1.2 {ratio} Normal 0.9-2.4 [facility] Comment on above: Order Comment: UNKNO WN1N Performed By: #### L 503.0105, L504.2610, L101.9900, L100.0100, L500.4050, L100.9950, L501.6710, L3100.1350, L400.0001, L506.0250 ####[facility] [address] [place], [address] ALK P 57 U/L Normal 45-117 [facility] Comment on above: Order Comment: UNKNO WN1N Performed By: #### L 503.0105, L504.2610, L101.9900, L100.0100, L500.4050, L100.9950, L501.6710, L3100.1350, L400.0001, L506.0250 ####[facility] [address] [place], [place], [phone] ALT [Catalytic activity/Vol] 28 U/L Normal 13-56 [facility] Comment on above: Order Comment: UNKNO WN1N Performed By: #### L 503.0105, L504.2610, L101.9900, L100.0100, L500.4050, L100.9950, L501.6710, L3100.1350, L400.0001, L506.0250 ####[facility] [address] [place], [place], [phone] AST [Catalytic activity/Vol] 18 U/L Normal 15-37 [facility] Comment on above: Order Comment: UNKNO WN1N Performed By: #### L 503.0105, L504.2610, L101.9900, L100.0100, L500.4050, L100.9950, L501.6710, L3100.1350, L400.0001, L506.0250 ####[facility] [address] [place], [place], [phone] Bilirubin [Mass/Vol] 0.50 mg/dL Normal 0.20-1.00 [facility] Comment on above: Order Comment: UNKNO WN1N Result Comment: For patients on eltrombopag therapy, use of Dimension [place] TBIL is not recommended. Performed By: #### L 503.0105, L504.2610, L101.9900, L100.0100, L500.4050, L100.9950, L501.6710, L3100.1350, L400.0001, L506.0250 ####[facility] [address] [place], [address] BUN/CRE 19.1 RATIO Normal 10-20 [facility] Comment on above: Order Comment: UNKNO WN1N Performed By: #### L 503.0105, L504.2610, L101.9900, L100.0100, L500.4050, L100.9950, L501.6710, L3100.1350, L400.0001, L506.0250 ####[facility] [address] [place], [address] CA,Total 8.8 mg/dL Normal 8.5-10.1 [facility] Comment on above: Order Comment: UNKNO WN1N Performed By: #### L 503.0105, L504.2610, L101.9900, L100.0100, L500.4050, L100.9950, L501.6710, L3100.1350, L400.0001, L506.0250 ####[facility] [address] [place], [address] Chloride [Moles/Vol] 109 mmol/L High 98-107 [facility] Comment on above: Order Comment: UNKNO WN1N Performed By: #### L 503.0105, L504.2610, L101.9900, L100.0100, L500.4050, L100.9950, L501.6710, L3100.1350, L400.0001, L506.0250 ####[facility] [address] [place], [address] CO2 [Moles/Vol] 28.0 mmol/L Normal 21.0-32.0 [facility] Comment on above: Order Comment: UNKNO WN1N Performed By: #### L 503.0105, L504.2610, L101.9900, L100.0100, L500.4050, L100.9950, L501.6710, L3100.1350, L400.0001, L506.0250 ####[facility] [address] [place], [address] Creatinine [Mass/Vol] 0.78 mg/dL Normal 0.55-1.02 [facility] Comment on above: Order Comment: NORMAO WN1N Result Comment: The validity of the calculated GFR GFRAA in patients over 70 years has not been determined. Clinical correlation is essential. Performed By: #### L 503.0105, L504.2610, L101.9900, L100.0100, L500.4050, L100.9950, L501.6710, L3100.1350, L400.0001, L506.0250 ####[facility] [address] [place], [place], [phone]([phone] EST GFR - AA 94 mL/min Normal >60 [facility] Comment on above: Order Comment: CANDICE WN1N Result Comment: Afri can [place] Citizen GFR Calc Performed By: #### L 503.0105, L504.2610, L101.9900, L100.0100, L500.4050, L100.9950, L501.6710, L3100.1350, L400.0001, L506.0250 ####[facility] [address] [place], [place], [phone] GAP 3 Low 5-15 [facility] Comment on above: Order Comment: CANDICE FOUNTAIN1N Performed By: #### L 503.0105, L504.2610, L101.9900, L100.0100, L500.4050, L100.9950, L501.6710, L3100.1350, L400.0001, L506.0250 ####[facility] [address] [place], [place], [phone] GFR/1.73 sq M.predicted among non-blacks MDRD (S/P/Bld) [Vol rate/Area] 78 mL/min/{1.73_m2} Normal >60 [facility] Comment on above: Order Comment: UNKNO WN1N Result Comment: Non- GFR Calc Performed By: #### L 503.0105, L504.2610, L101.9900, L100.0100, L500.4050, L100.9950, L501.6710, L3100.1350, L400.0001, L506.0250 ####[facility] [address] [place], [address] Globulin (S) [Mass/Vol] 3.2 g/dL Normal 2.2-4.2 [facility] Comment on above: Order Comment: UNKNO WN1N Performed By: #### L 503.0105, L504.2610, L101.9900, L100.0100, L500.4050, L100.9950, L501.6710, L3100.1350, L400.0001, L506.0250 ####[facility] [address] [place], [address] Glucose [Mass/Vol] 108 mg/dL High 74-106 [facility] Comment on above: Order Comment: UNKNO WN1N Result Comment: Fast ing Glucose result from 100 to 125 mg/dL suggests IMPAIRED HOMEOSTASIS per A.D.A. criteria. Performed By: #### L 503.0105, L504.2610, L101.9900, L100.0100, L500.4050, L100.9950, L501.6710, L3100.1350, L400.0001, L506.0250 ####[facility] [address] [place], [address] Potassium [Moles/Vol] 3.6 mmol/L Normal 3.5-5.1 [facility] Comment on above: Order Comment: UNKNO WN1N Performed By: #### L 503.0105, L504.2610, L101.9900, L100.0100, L500.4050, L100.9950, L501.6710, L3100.1350, L400.0001, L506.0250 ####[facility] [address] [place], [address] Sodium [Moles/Vol] 140 mmol/L Normal 136-145 [facility] Comment on above: Order Comment: UNKNO WN1N Performed By: #### L 503.0105, L504.2610, L101.9900, L100.0100, L500.4050, L100.9950, L501.6710, L3100.1350, L400.0001, L506.0250 ####[facility] [address] [place], [place], [phone] T PROT 7.2 g/dL Normal 6.4-8.2 [facility] Comment on above: Order Comment: UNKNO WN1N Performed By: #### L 503.0105, L504.2610, L101.9900, L100.0100, L500.4050, L100.9950, L501.6710, L3100.1350, L400.0001, L506.0250 ####[facility] [address] [place], [place], [phone] Urea nitrogen [Mass/Vol] 15 mg/dL Normal 7-18 [facility] Comment on above: Order Comment: UNKNO WN1N Performed By: #### L 503.0105, L504.2610, L101.9900, L100.0100, L500.4050, L100.9950, L501.6710, L3100.1350, L400.0001, L506.0250 ####[facility] [address] [place], [place], [phone] Erythrocyte Sed Rateon 10-22 SED RATE 5 mm/hr Normal 0-30 [facility] Comment on above: Performed By: #### L 503.0105, L504.2610, L101.9900, L100.0100, L500.4050, L100.9950, L501.6710, L3100.1350, L400.0001, L506.0250 #### [facility] [address] [place], [place], [address] Folates, (Folic Acid)on FOLATES 8.40 ng/mL Normal 3.1-55.4 [facility] Comment on above: Order Comment: UNKNO WN1N Performed By: #### L 503.0105, L504.2610, L101.9900, L100.0100, L500.4050, L100.9950, L501.6710, L3100.1350, L400.0001, L506.0250 ####[facility] [address] [place], [place], [phone] LDHon 10-22-2024 LDH 214 U/L Normal 84-246 [facility] Comment on above: Order Comment: UNKNO WN1N Performed By: #### L 503.0105, L504.2610, L101.9900, L100.0100, L500.4050, L100.9950, L501.6710, L3100.1350, L400.0001, L506.0250 ####[facility] [address] [place], [place], [address] Oncology Visit Reporton Oncology Visit Report [facility] [address] [place] [address] OFFICE VISIT Date of Service: 10/22/24 1523 MR#: [id number] Acct: [id number] Name: LETICIA GAR Rep #: [id number] : 1960 From: Sam Venegas MD Age/Sex: 64/F Location: [facility] Status: Signed HPI Subjective Date of Service 10/22/24 Chief Complaint Referred for Polycythemia. History of Present Illness 64y.o.woman was found to have persistently high HGB level and referred for further evaluation. Denies fever, weight loss or night sweats, family history of blood disease. [facility] Medical History (Updated 10/22/24 @ 16:06 by [...] QAM 09/26/24 (more content not included)... Normal [facility] Retic Panelon 10-22-2024 IM RET FRACTION 13.90 Normal 3.00-15.90 [facility] Comment on above: Performed By: #### L 503.0105, L504.2610, L101.9900, L100.0100, L500.4050, L100.9950, L501.6710, L3100.1350, L400.0001, L506.0250 #### [facility] [address] [place], [place], [phone] RET-HE 32.6 pg Normal 30-35 [facility] Comment on above: Performed By: #### L 503.0105, L504.2610, L101.9900, L100.0100, L500.4050, L100.9950, L501.6710, L3100.1350, L400.0001, L506.0250 #### [facility] [address] [place], [address] Retic Count 2.04 High 0.5-1.5 [facility] Comment on above: Performed By: #### L 503.0105, L504.2610, L101.9900, L100.0100, L500.4050, L100.9950, L501.6710, L3100.1350, L400.0001, L506.0250 #### [facility] [address] [place], [address] Urinalysis, Completeon 10-22 RBC 0-5 SEEN Normal 0-5 [facility] Comment on above: Order Comment: UNKNO WN TRANSFER TABLE OPERATOR HELPER TO SPECIFY Performed By: #### L 503.0105, L504.2610, L101.9900, L100.0100, L500.4050, L100.9950, L501.6710, L3100.1350, L400.0001, L506.0250 #### [facility] [address] [place], [address] WBC 0-5 SEEN Normal 0-5 [facility] Comment on above: Order Comment: UNKNO WN TRANSFER TABLE OPERATOR HELPER TO SPECIFY Performed By: #### L 503.0105, L504.2610, L101.9900, L100.0100, L500.4050, L100.9950, L501.6710, L3100.1350, L400.0001, L506.0250 #### [facility] [address] [place], [place], [phone] (854) EPI,SQUAMOUS 0-5 SEEN Normal 5-10 [facility] Comment on above: Order Comment: UNKNO WN TRANSFER TABLE OPERATOR HELPER TO SPECIFY Performed By: #### L 503.0105, L504.2610, L101.9900, L100.0100, L500.4050, L100.9950, L501.6710, L3100.1350, L400.0001, L506.0250 #### [facility] [address] [place], [place], [phone] (940) BACTERIA 0 SEEN Normal None Seen [facility] Comment on above: Order Comment: UNKNO WN TRANSFER TABLE OPERATOR HELPER TO SPECIFY Performed By: #### L 503.0105, L504.2610, L101.9900, L100.0100, L500.4050, L100.9950, L501.6710, L3100.1350, L400.0001, L506.0250 #### [facility] [address] [place], [place], [phone] (761) Mucus Ql (Urine sed) 0 SEEN Normal [facility] Comment on above: Order Comment: UNKNO WN TRANSFER TABLE OPERATOR HELPER TO SPECIFY Performed By: #### L 503.0105, L504.2610, L101.9900, L100.0100, L500.4050, L100.9950, L501.6710, L3100.1350, L400.0001, L506.0250 #### [facility] [address] [place], [place], [phone] (571) Vitamin B12on 10-22-2024 Cobalamin (Vitamin B12) [Mass/Vol] 331 pg/mL Normal 211-911 [facility] Comment on above: Performed By: #### L 503.0105, L504.2610, L101.9900, L100.0100, L500.4050, L100.9950, L501.6710, L3100.1350, L400.0001, L506.0250 #### [facility] [address] [place], [address] CBC W/Diff, Automatedon 11-2 -2023 Absolute Lymph 1.18 X10 3/uL Normal 0.83-4.51 [facility] Comment on above: Order Comment: Order Date: 09/12/24Order Info: 0184-1 - CBCD Performed By: #### L 502.0250, L501.9985, L100.0100, L500.4050 ####[facility] [address] [place], [address] Absolute Neut 2.7 X10 3/uL Normal 2.0-7.7 [facility] Comment on above: Order Comment: Order Date: 09/12/24Order Info: 0184-1 - CBCD Performed By: #### L 502.0250, L501.9985, L100.0100, L500.4050 ####[facility] [address] [place], [address] Basophils/100 WBC (Bld) 0.9 % Normal 0-1 [facility] Comment on above: Order Comment: Order Date: 09/12/24Order Info: 0184-1 - CBCD Performed By: #### L 502.0250, L501.9985, L100.0100, L500.4050 ####[facility] [address] [place], [address] Eosinophils/100 WBC (Bld) 1.4 % Normal 0-5 [facility] Comment on above: Order Comment: Order Date: 09/12/24Order Info: 0184-1 - CBCD Performed By: #### L 502.0250, L501.9985, L100.0100, L500.4050 ####[facility] [address] [place], [address] Erythrocyte distribution width (RBC) [Ratio] 13.1 % Normal 11.6-14.6 [facility] Comment on above: Order Comment: Order Date: 09/12/24Order Info: 018-1 - CBCD Performed By: #### L 502.0250, L501.9985, L100.0100, L500.4050 ####[facility] [address] [place], [address] Hematocrit (Bld) [Volume fraction] 49.8 % High 37-47 [facility] Comment on above: Order Comment: Order Date: 09/12/24Order Info: 018- - CBCD Performed By: #### L 502.0250, L501.9985, L100.0100, L500.4050 ####[facility] [address] [place], [address] Hemoglobin (Bld) [Mass/Vol] 16.7 g/dL High 12.0-15.0 [facility] Comment on above: Order Comment: Order Date: 09/12/24Order Info: 0184- - CBCD Performed By: #### L 502.0250, L501.9985, L100.0100, L500.4050 ####[facility] [address] [place], [address] IG% 0.500 Normal 0.0-0.9 [facility] Comment on above: Order Comment: Order Date: 09/12/24Order Info: 0184-1 - CBCD Result Comment: IG% - Immature Granulocytes (promyelocytes, myelocytes and metamyelocytes) > 1% indicates that a LEFT SHIFT is Present. Performed By: #### L 502.0250, L501.9985, L100.0100, L500.4050 ####[facility] [address] [place], [address] Lymphocytes/100 WBC (Bld) 27.4 % Normal 19-41 [facility] Comment on above: Order Comment: Order Date: 09/12/24Order Info: 183- - CBCD Performed By: #### L 502.0250, L501.9985, L100.0100, L500.4050 ####[facility] [address] [place], [address] MCH (RBC) [Entitic mass] 30.0 pg Normal 27.0-32.0 [facility] Comment on above: Order Comment: Order Date: 09/12/24Order Info: 183- - CBCD Performed By: #### L 502.0250, L501.9985, L100.0100, L500.4050 ####[facility] [address] [place], [address] MCHC (RBC) [Mass/Vol] 33.5 g/dL Normal 32-36 [facility] Comment on above: Order Comment: Order Date: 09/12/24Order Info: 183- - CBCD Performed By: #### L 502.0250, L501.9985, L100.0100, L500.4050 ####[facility] [address] [place], [address] MCV (RBC) [Entitic vol] 89.4 fL Normal 81-99 [facility] Comment on above: Order Comment: Order Date: 09/12/24Order Info: 183- - CBCD Performed By: #### L 502.0250, L501.9985, L100.0100, L500.4050 ####[facility] [address] [place], [address] Monocytes/100 WBC (Bld) 6.3 % Normal 0-10 [facility] Comment on above: Order Comment: Order Date: 09/12/24Order Info: 183- - CBCD Performed By: #### L 502.0250, L501.9985, L100.0100, L500.4050 ####[facility] [address] [place], [address] Neutrophils/100 WBC (Bld) 63.5 % Normal 47-70 [facility] Comment on above: Order Comment: Order Date: 09/12/24Order Info: 018- - CBCD Performed By: #### L 502.0250, L501.9985, L100.0100, L500.4050 ####[facility] [address] [place], [address] Nucleated RBC (Bld) [#/Vol] 0 10*3/uL Normal 0-5 [facility] Comment on above: Order Comment: Order Date: 09/12/24Order Info: 018- - CBCD Performed By: #### L 502.0250, L501.9985, L100.0100, L500.4050 ####[facility] [address] [place], [address] Platelet mean volume (Bld) [Entitic vol] 10.4 fL Normal 6.2-12.0 [facility] Comment on above: Order Comment: Order Date: 09/12/24Order Info: 018- - CBCD Performed By: #### L 502.0250, L501.9985, L100.0100, L500.4050 ####[facility] [address] [place], [address] Platelets (Bld) [#/Vol] 207 10*3/uL Normal 150-450 [facility] Comment on above: Order Comment: Order Date: 09/12/24Order Info: 018-1 - CBCD Performed By: #### L 502.0250, L501.9985, L100.0100, L500.4050 ####[facility] [address] [place], [address] RBC (Bld) [#/Vol] 5.57 10*6/uL High 4.2-5.4 [facility] Comment on above: Order Comment: Order Date: 09/12/24Order Info: 0184-1 - CBCD Performed By: #### L 502.0250, L501.9985, L100.0100, L500.4050 ####[facility] [address] [place], [address] RDW SD 42.8 fl Normal 35.1-43.9 [facility] Comment on above: Order Comment: Order Date: 09/12/24Order Info: 0184-1 - CBCD Performed By: #### L 502.0250, L501.9985, L100.0100, L500.4050 ####[facility] [address] [place], [address] WBC (Bld) [#/Vol] 4.3 10*3/uL Low 4.4-11.0 [facility] Comment on above: Order Comment: Order Date: 09/12/24Order Info: 0184-1 - CBCD Performed By: #### L 502.0250, L501.9985, L100.0100, L500.4050 ####[facility] [address] [place], [address] Comprehensive Metabolic Prof [facility] 09-12-2024 Albumin [Mass/Vol] 4.6 g/dL Normal 3.2-5.0 [facility] Comment on above: Order Comment: Order Date: 09/12/24Order Info: 0786-1 - CMP Performed By: #### L 502.0250, L501.9985, L100.0100, L500.4050 ####[facility] [address] [place], [address] Albumin/Globulin [Mass ratio] 1.3 {ratio} Normal 0.9-2.4 [facility] Comment on above: Order Comment: Order Date: 09/12/24Order Info: 0786-1 - CMP Performed By: #### L 502.0250, L501.9985, L100.0100, L500.4050 ####[facility] [address] [place], [address] ALK P 68 U/L Normal 45-117 [facility] Comment on above: Order Comment: Order Date: 09/12/24Order Info: 0786-1 - CMP Performed By: #### L 502.0250, L501.9985, L100.0100, L500.4050 ####[facility] [address] [place], [address] ALT [Catalytic activity/Vol] 35 U/L Normal 13-56 [facility] Comment on above: Order Comment: Order Date: 09/12/24Order Info: [id number] - CMP Performed By: #### L 502.0250, L501.9985, L100.0100, L500.4050 ####[facility] [address] [place], [place], [address] AST [Catalytic activity/Vol] 26 U/L Normal 15-37 [facility] Comment on above: Order Comment: Order Date: 09/12/24Order Info: 0786-1 - CMP Performed By: #### L 502.0250, L501.9985, L100.0100, L500.4050 ####[facility] [address] [place], [address] Bilirubin [Mass/Vol] 0.80 mg/dL Normal 0.20-1.00 [facility] Comment on above: Order Comment: Order Date: 09/12/24Order Info: 0786-1 - CMP Result Comment: For patients on eltrombopag therapy, use of Dimension [place] TBIL is not recommended. Performed By: #### L 502.0250, L501.9985, L100.0100, L500.4050 ####[facility] [address] [place], [address] BUN/CRE 16.3 RATIO Normal 10-20 [facility] Comment on above: Order Comment: Order Date: 09/12/24Order Info: 0786-1 - CMP Performed By: #### L 502.0250, L501.9985, L100.0100, L500.4050 ####[facility] [address] [place], [address] CA,Total 9.0 mg/dL Normal 8.5-10.1 [facility] Comment on above: Order Comment: Order Date: 09/12/24Order Info: 0786-1 - CMP Performed By: #### L 502.0250, L501.9985, L100.0100, L500.4050 ####[facility] [address] [place], [address] Chloride [Moles/Vol] 106 mmol/L Normal 98-107 [facility] Comment on above: Order Comment: Order Date: 09/12/24Order Info: 0786-1 - CMP Performed By: #### L 502.0250, L501.9985, L100.0100, L500.4050 ####[facility] [address] [place], [address] CO2 [Moles/Vol] 28.0 mmol/L Normal 21.0-32.0 [facility] Comment on above: Order Comment: Order Date: 09/12/24Order Info: 0786-1 - CMP Performed By: #### L 502.0250, L501.9985, L100.0100, L500.4050 ####[facility] [address] [place], [address] Creatinine [Mass/Vol] 0.92 mg/dL Normal 0.55-1.02 [facility] Comment on above: Order Comment: Order Date: 09/12/24Order Info: 0786-1 - CMP Result Comment: The validity of the calculated GFR GFRAA in patients over 70 years has not been determined. Clinical correlation is essential. Performed By: #### L 502.0250, L501.9985, L100.0100, L500.4050 ####[facility] [address] [place], [address] EST GFR - AA 78 mL/min Normal >60 [facility] Comment on above: Order Comment: Order Date: 09/12/24Order Info: 0786-1 - CMP Result Comment: Afri can [place] Citizen GFR Calc Performed By: #### L 502.0250, L501.9985, L100.0100, L500.4050 ####[facility] [address] [place], [address] GAP 6 Normal 5-15 [facility] Comment on above: Order Comment: Order Date: 09/12/24Order Info: 0786-1 - CMP Performed By: #### L 502.0250, L501.9985, L100.0100, L500.4050 ####[facility] [address] [place], [address] GFR/1.73 sq M.predicted among non-blacks MDRD (S/P/Bld) [Vol rate/Area] 65 mL/min/{1.73_m2} Normal >60 [facility] Comment on above: Order Comment: Order Date: 09/12/24Order Info: 0786-1 - CMP Result Comment: Non- GFR Calc Performed By: #### L 502.0250, L501.9985, L100.0100, L500.4050 ####[facility] [address] [place], [address] Globulin (S) [Mass/Vol] 3.5 g/dL Normal 2.2-4.2 [facility] Comment on above: Order Comment: Order Date: 09/12/24Order Info: 0786-1 - CMP Performed By: #### L 502.0250, L501.9985, L100.0100, L500.4050 ####[facility] [address] [place], [address] Glucose [Mass/Vol] 98 mg/dL Normal 74-106 [facility] Comment on above: Order Comment: Order Date: 09/12/24Order Info: 0786-1 - CMP Performed By: #### L 502.0250, L501.9985, L100.0100, L500.4050 ####[facility] [address] [place], [address] Potassium [Moles/Vol] 3.6 mmol/L Normal 3.5-5.1 [facility] Comment on above: Order Comment: Order Date: 09/12/24Order Info: 0786-1 - CMP Performed By: #### L 502.0250, L501.9985, L100.0100, L500.4050 ####[facility] [address] [place], [address] Sodium [Moles/Vol] 140 mmol/L Normal 136-145 [facility] Comment on above: Order Comment: Order Date: 09/12/24Order Info: 0786-1 - CMP Performed By: #### L 502.0250, L501.9985, L100.0100, L500.4050 ####[facility] [address] [place], [address] T PROT 8.1 g/dL Normal 6.4-8.2 [facility] Comment on above: Order Comment: Order Date: 09/12/24Order Info: 0786-1 - CMP Performed By: #### L 502.0250, L501.9985, L100.0100, L500.4050 ####[facility] [address] [place], [address] Urea nitrogen [Mass/Vol] 15 mg/dL Normal 7-18 [facility] Comment on above: Order Comment: Order Date: 09/12/24Order Info: 0786-1 - CMP Performed By: #### L 502.0250, L501.9985, L100.0100, L500.4050 ####[facility] [address] [place], [address] Hemoglobin A1con 09-12-2024 HbA1c (Bld) [Mass fraction] 6.0 % High 3.8-5.6 [facility] Comment on above: Order Comment: Order Date: 09/12/24Order Info: 4548-4 - A1C Result Comment: Norm al < 5.7 % Prediabetic 5.7 - 6.4 % Diabetic >or= 6.5 % Please note range changes. Performed By: #### L 502.0250, L501.9985, L100.0100, L500.4050 ####[facility] [address] [place], [address] Microalb:Creat Ratio,Random URon 09-12-2024 Creatinine [Mass/Vol] 110.00 mg/dL Normal NO RANGE EST. [facility] Comment on above: Order Comment: Order Date: 09/12/24Order Info: 0779-1 - MIACRE Performed By: #### L 502.0250, L501.9985, L100.0100, L500.4050 ####[facility] [address] [place], [address] MALB:CRE 13.4 mg/g CRE Normal <30 mg/g CRE [facility] Comment on above: Order Comment: Order Date: 09/12/24Order Info: 0779-1 - MIACRE Performed By: #### L 502.0250, L501.9985, L100.0100, L500.4050 ####[facility] [address] [place], [address] MICROALBUMIN,UR 14.7 mg/L Normal NO RANGE EST. [facility] Comment on above: Order Comment: Order Date: 09/12/24Order Info: 0779-1 - MIACRE Performed By: #### L 502.0250, L501.9985, L100.0100, L500.4050 ####[facility] [address] [place], [address] CBC W/Diff, Automatedon 06-15 Absolute Lymph 1.63 X10 3/uL Normal 0.83-4.51 [facility] Comment on above: Order Comment: Order Date: 04/30/24 Order Info: 018- - CBCD Performed By: #### L 100.0100 #### [facility] [address] [place], [address] Absolute Neut 4.6 X10 3/uL Normal 2.0-7.7 [facility] Comment on above: Order Comment: Order Date: 04/30/24 Order Info: 018- - CBCD Performed By: #### L 100.0100 #### [facility] [address] [place], [address] Basophils/100 WBC (Bld) 0.6 % Normal 0-1 [facility] Comment on above: Order Comment: Order Date: 04/30/24 Order Info: 018- - CBCD Performed By: #### L 100.0100 #### [facility] [address] [place], [address] Eosinophils/100 WBC (Bld) 1.2 % Normal 0-5 [facility] Comment on above: Order Comment: Order Date: 04/30/24 Order Info: 018- - CBCD Performed By: #### L 100.0100 #### [facility] [address] [place], [address] Erythrocyte distribution width (RBC) [Ratio] 12.6 % Normal 11.6-14.6 [facility] Comment on above: Order Comment: Order Date: 04/30/24 Order Info: 018-1 - CBCD Performed By: #### L 100.0100 #### [facility] [address] [place], [address] Hematocrit (Bld) [Volume fraction] 46.2 % Normal 37-47 [facility] Comment on above: Order Comment: Order Date: 04/30/24 Order Info: 018-1 - CBCD Performed By: #### L 100.0100 #### [facility] [address] [place], [address] Hemoglobin (Bld) [Mass/Vol] 15.1 g/dL High 12.0-15.0 [facility] Comment on above: Order Comment: Order Date: 04/30/24 Order Info: 018- - CBCD Performed By: #### L 100.0100 #### [facility] [address] [place], [address] IG% 0.300 Normal 0.0-0.9 [facility] Comment on above: Order Comment: Order Date: 04/30/24 Order Info: 018- - CBCD Result Comment: IG% - Immature Granulocytes (promyelocytes, myelocytes and metamyelocytes) > 1% indicates that a LEFT SHIFT is Present. Performed By: #### L 100.0100 #### [facility] [address] [place], [address] Lymphocytes/100 WBC (Bld) 24.0 % Normal 19-41 [facility] Comment on above: Order Comment: Order Date: 04/30/24 Order Info: 018- - CBCD Performed By: #### L 100.0100 #### [facility] [address] [place], [address] MCH (RBC) [Entitic mass] 28.3 pg Normal 27.0-32.0 [facility] Comment on above: Order Comment: Order Date: 04/30/24 Order Info: 018- - CBCD Performed By: #### L 100.0100 #### [facility] [address] [place], [address] MCHC (RBC) [Mass/Vol] 32.7 g/dL Normal 32-36 [facility] Comment on above: Order Comment: Order Date: 04/30/24 Order Info: 018-1 - CBCD Performed By: #### L 100.0100 #### [facility] [address] [place], [address] MCV (RBC) [Entitic vol] 86.7 fL Normal 81-99 [facility] Comment on above: Order Comment: Order Date: 04/30/24 Order Info: 0184-1 - CBCD Performed By: #### L 100.0100 #### [facility] [address] [place], [address] Monocytes/100 WBC (Bld) 6.8 % Normal 0-10 [facility] Comment on above: Order Comment: Order Date: 04/30/24 Order Info: 0184-1 - CBCD Performed By: #### L 100.0100 #### [facility] [address] [place], [address] Neutrophils/100 WBC (Bld) 67.1 % Normal 47-70 [facility] Comment on above: Order Comment: Order Date: 04/30/24 Order Info: 0184-1 - CBCD Performed By: #### L 100.0100 #### [facility] [address] [place], [address] Nucleated RBC (Bld) [#/Vol] 0 10*3/uL Normal 0-5 [facility] Comment on above: Order Comment: Order Date: 04/30/24 Order Info: 0184-1 - CBCD Performed By: #### L 100.0100 #### [facility] [address] [place], [address] Platelet mean volume (Bld) [Entitic vol] 10.7 fL Normal 6.2-12.0 [facility] Comment on above: Order Comment: Order Date: 04/30/24 Order Info: 0184-1 - CBCD Performed By: #### L 100.0100 #### [facility] [address] [place], [address] Platelets (Bld) [#/Vol] 197 10*3/uL Normal 150-450 [facility] Comment on above: Order Comment: Order Date: 04/30/24 Order Info: 01801-13 - CBCD Performed By: #### L 100.0100 #### [facility] [address] [place], [address] RBC (Bld) [#/Vol] 5.33 10*6/uL Normal 4.2-5.4 [facility] Comment on above: Order Comment: Order Date: 04/30/24 Order Info: 01801-13 - CBCD Performed By: #### L 100.0100 #### [facility] [address] [place], [address] RDW SD 39.8 fl Normal 35.1-43.9 [facility] Comment on above: Order Comment: Order Date: 04/30/24 Order Info: 01801-13 - CBCD Performed By: #### L 100.0100 #### [facility] [address] [place], [address] WBC (Bld) [#/Vol] 6.8 10*3/uL Normal 4.4-11.0 [facility] Comment on above: Order Comment: Order Date: 04/30/24 Order Info: 01801-13 - CBCD Performed By: #### L 100.0100 #### [facility] [address] [place], [address] Bacteria Ur Culton 3 Bacteria identified Cx [...] Islt <=20 ug/ml Susceptible Invalid Interpretation Code [facility] Comment on above: Performed By: #### 6 30-4 #### [facility] [place] [address] [place] [address] POC Urine Auto W/O Microon 0 02-26-2023 Bilirubin UA POC Negative [employer] Blood UA POC Positive [employer] CLARITY, URINE POC Clear [email or web address] Color UA POC Light Yellow [employer] Glucose UA POC Positive [employer] Interpretation and review of laboratory results Abnormal [employer] Ketones UA POC Negative Negative [employer] Leukocytes UA POC Negative [employer] Nitrite UA POC Negative Negative [employer] PH UA POC 5.0 [employer] Protein UA POC Negative Positive, Negative [employer] Specific Carter UA POC 1.005 [employer] Urobilinogen UA POC Negative [employer] [address] Absolute lymphocyte counton 09-18-2022 Lymphocytes Auto (Unsp spec) [#/Vol] 1.24 10*3/uL 0.83-4.51 [facility] Work Phone: Basophil percentageon 2021 Basophils/100 WBC (Bld) 1.2 % 0-1 [facility] Work Phone: Bilirubin [Mass/Vol] 0.60 mg/dL 0.20-1.00 [facility] Work Phone: Comment on above: For patients on eltr ombopag therapy, use of Dimension [place] TBIL is not recommended. Chloride [Moles/Vol] 106 mmol/L 98-107 [facility] Work Phone: Cholesterol [Mass/Vol] 236 mg/dL <200 [facility] Work Phone: Comment on above: <200 mg/dL Desirable 200-240 mg/dL Borderline >240 mg/dL High Risk Eosinophils/100 WBC (Bld) 2.6 % 0-5 [facility] Work Phone: Glucose [Mass/Vol] 105 mg/dL 74-106 [facility] Work Phone: Comment on above: Fasting Glucose resu lt from 100 to 125 mg/dL suggests IMPAIRED HOMEOSTASIS per A.D.A. criteria. Neutrophils (Bld) [#/Vol] 2.5 10*3/uL 2.0-7.7 [facility] Work Phone: Neutrophils/100 WBC (Bld) 58.1 % 47-70 [facility] Work Phone: Potassium [Moles/Vol] 4.3 mmol/L 3.5-5.1 [facility] Work Phone: Protein [Mass/Vol] 7.0 g/dL 6.4-8.2 [facility] Work Phone: Sodium [Moles/Vol] 138 mmol/L 136-145 [facility] Work Phone: Triglyceride [Mass/Vol] 113 mg/dL <199 [facility] Work Phone: Comment on above: The drugs N-Acetylcy steine and Metamizole may falsely depress this assay.Serum Triglycerides Reference Interval Normal <150 mg/dL Borderline high 150 - 199 mg/dL High 200 - 499 mg/dL Very High > or = 500 mg/dL WBC (Bld) [#/Vol] 4.3 10*3/uL 4.4-11.0 [facility] Work Phone: Blood erythrocytes count (nu mber/volume)on 09-18-2022 RBC (Bld) [#/Vol] 5.39 10*6/uL 4.2-5.4 [facility] Work Phone: Blood hemoglobin measurement (mass/volume)on 09-18-2022 Hemoglobin (Bld) [Mass/Vol] 15.8 g/dL 12.0-15.0 [facility] Work Phone: Blood lymphocytes/100 leukoc yteson 09-18-2022 Lymphocytes/100 WBC (Bld) 29.2 % 19-41 [facility] Work Phone: Blood monocytes/100 leukocyt eson 09-18-2022 Monocytes/100 WBC (Bld) 8.7 % 0-10 [facility] Work Phone: Blood platelet mean volumeon 09-18-2022 Platelet mean volume (Bld) [Entitic vol] 10.0 fL 6.2-12.0 [facility] Work Phone: Determination of erythrocyte mean corpuscular volume (MCV)on 09-18-2022 MCV (RBC) [Entitic vol] 90.7 fL 81-99 [facility] Work Phone: Hematocrit Auto (Bld) [Volum e fraction]on 09-18-2022 Hematocrit (Bld) [Volume fraction] 48.9 % 37-47 [facility] Work Phone: Laboratory - Chemistry and C hemistry - challengeon 09-18-2022 ALP [Catalytic activity/Vol] 96 U/L 45-117 [facility] Work Phone: ALT [Catalytic activity/Vol] 26 U/L 13-56 [facility] Work Phone: CO2 [Moles/Vol] 27.0 mmol/L 21.0-32.0 [facility] Work Phone: Globulin (S) [Mass/Vol] 2.9 g/dL 2.2-4.2 [facility] Work Phone: Urea nitrogen/Creatinine [Mass ratio] 15.2 mg/mg 10-20 [facility] Work Phone: Laboratory - Hematology and Cell countson 09-18-2022 Erythrocyte distribution width (RBC) [Entitic vol] 41.1 fL 35.1-43.9 [facility] Work Phone: Erythrocyte distribution width (RBC) [Ratio] 12.3 % 11.6-14.6 [facility] Work Phone: Immature granulocytes/100 WBC (Bld) 0.200 % 0.0-0.9 [facility] Work Phone: Comment on above: IG% - Immature Granu locytes (promyelocytes, myelocytes and metamyelocytes) > 1% indicates that a LEFT SHIFT is Present. MCH (RBC) [Entitic mass] 29.3 pg 27.0-32.0 [facility] Work Phone: Nucleated RBC/100 WBC (Bld) [Ratio] 0 % 0-5 [facility] Work Phone: MCHC Auto (RBC) [Mass/Vol]on 09-18-2022 MCHC (RBC) [Mass/Vol] 32.3 g/dL 32-36 [facility] Work Phone: No Panel Informationon 09-18 Estimated GFR (MDRD) Amer 94 mL/min >60 [facility] Work Phone: Comment on above: GFR Calc Estimated GFR (MDRD) Non-Af Amer 78 mL/min >60 [facility] Work Phone: Comment on above: Non- GFR Calc Urine Microalbumin/Creatin ine Ratio 11.9 mg/g CRE <30 [facility] Work Phone: Platelets bldon 09-18-2022 Platelets (Bld) [#/Vol] 186 10*3/uL 150-450 [facility] Work Phone: Serum or plasma albumin rehana urement (mass/volume)on 09-18-2022 Albumin [Mass/Vol] 4.1 g/dL 3.2-5.0 [facility] Work Phone: Serum or plasma albumin/glob ulin mass ratioon 09-18-2022 Albumin/Globulin [Mass ratio] 1.4 {ratio} 0.9-2.4 [facility] Work Phone: Serum or plasma calcium rehana urement (mass/volume)on 09-18-2022 Calcium [Mass/Vol] 9.0 mg/dL 8.5-10.1 [facility] Work Phone: Serum or plasma cholesterol in HDL measurement (mass/volume)on 09-18-2022 Cholesterol in HDL [Mass/Vol] 53 mg/dL >40 [facility] Work Phone: Comment on above: The drugs N-Acetylcy steine and Metamizole may falsely depress this assay. Reference Range HDL <40 mg/dL Low HDL Cholesterol HDL >or= 60 mg/dL High HDL Cholesterol Serum or plasma cholesterol in VLDL measurement (mass/volume)on 09-18-2022 Cholesterol in VLDL [Mass/Vol] 23 mg/dL 5-40 [facility] Work Phone: Serum or plasma creatinine m easurement (mass/volume)on 09-18-2022 Creatinine [Mass/Vol] 0.79 mg/dL 0.55-1.02 [facility] Work Phone: Comment on above: The validity of the calculated GFR & GFRAA in patients over 70 years has not been determined. Clinical correlation is essential. Serum or plasma low density lipoprotein (LDL) cholesterol measurement (mass/volume)on 09-18-2022 Cholesterol in LDL [Mass/Vol] 160 mg/dL 0-130 [facility] Work Phone: Serum or plasma urea nitroge n measurement (mass/volume)on 09-18-2022 Urea nitrogen [Mass/Vol] 12 mg/dL 7-18 [facility] Work Phone: Thin prep Papanicolaou smear with manual screeningon 09-18-2022 Thin prep Papanicolaou smear with manual screening 18 U/L 15-37 [facility] Work Phone: Thin prep Papanicolaou smear with manual screening 5 5-15 [facility] Work Phone: Thin prep Papanicolaou smear with manual screening 9.0 mg/L NO RANGE EST. [facility] Work Phone: Urine creatinine measurement (mass/volume)on 09-18-2022 Creatinine (U) [Mass/Vol] 76.00 mg/dL NO RANGE EST. [facility] Work Phone: Whole blood hemoglobin A1c/t otal hemoglobin ratio (mass fraction)on 09-18-2022 HbA1c (Bld) [Mass fraction] 6.0 % 3.8-5.6 [facility] Work Phone: Comment on above: Normal < 5.7 % Predi abetic 5.7 - 6.4 % Diabetic >or= 6.5 % Please note range changes. Basophil percentageon 2021 Bilirubin [Mass/Vol] 0.40 mg/dL 0.20-1.00 [facility] Work Phone: Comment on above: For patients on eltr ombopag therapy, use of Dimension [place] TBIL is not recommended. Chloride [Moles/Vol] 104 mmol/L 98-107 [facility] Work Phone: Cholesterol [Mass/Vol] 244 mg/dL <200 [facility] Work Phone: Comment on above: <200 mg/dL Desirable 200-240 mg/dL Borderline >240 mg/dL High Risk Glucose [Mass/Vol] 97 mg/dL 74-106 [facility] Work Phone: Potassium [Moles/Vol] 3.8 mmol/L 3.5-5.1 [facility] Work Phone: Protein [Mass/Vol] 7.2 g/dL 6.4-8.2 [facility] Work Phone: Sodium [Moles/Vol] 139 mmol/L 136-145 [facility] Work Phone: Cholesterol in LDL Direct as say [Mass/Vol]on 04-20-2022 Cholesterol in LDL [Mass/Vol] 155 mg/dL 0-99 [facility] Work Phone: Comment on above: Performed at: [address] [id number] Director: Amaury Dean PhD, Phone: [phone] Laboratory - Chemistry and C hemistry - challengeon 04-20-2022 ALP [Catalytic activity/Vol] 81 U/L 45-117 [facility] Work Phone: ALT [Catalytic activity/Vol] 25 U/L 13-56 [facility] Work Phone: CO2 [Moles/Vol] 30.0 mmol/L 21.0-32.0 [facility] Work Phone: Globulin (S) [Mass/Vol] 3.2 g/dL 2.2-4.2 [facility] Work Phone: Urea nitrogen/Creatinine [Mass ratio] 14.2 mg/mg 10-20 [facility] Work Phone: Laboratory - Miscellaneous t estson 04-20-2022 Service comment (Unsp spec) [Interp] TNP [facility] Work Phone: Comment on above: Test not performed No Panel Informationon 04-20 Estimated GFR (MDRD) Amer 96 mL/min >60 [facility] Work Phone: Comment on above: GFR Calc Estimated GFR (MDRD) Non-Af Amer 80 mL/min >60 [facility] Work Phone: Comment on above: Non- GFR Calc Urine Microalbumin/Creatin ine Ratio 7.8 mg/g CRE <30 [facility] Work Phone: Serum or plasma albumin rehana urement (mass/volume)on 04-20-2022 Albumin [Mass/Vol] 4.0 g/dL 3.2-5.0 [facility] Work Phone: Serum or plasma albumin/glob ulin mass ratioon 04-20-2022 Albumin/Globulin [Mass ratio] 1.2 {ratio} 0.9-2.4 [facility] Work Phone: Serum or plasma calcium rehana urement (mass/volume)on 04-20-2022 Calcium [Mass/Vol] 9.0 mg/dL 8.5-10.1 [facility] Work Phone: Serum or plasma creatinine m easurement (mass/volume)on 04-20-2022 Creatinine [Mass/Vol] 0.77 mg/dL 0.55-1.02 [facility] Work Phone: Comment on above: The validity of the calculated GFR & GFRAA in patients over 70 years has not been determined. Clinical correlation is essential. Serum or plasma urea nitroge n measurement (mass/volume)on 04-20-2022 Urea nitrogen [Mass/Vol] 11 mg/dL 7-18 [facility] Work Phone: Thin prep Papanicolaou smear with manual screeningon 04-20-2022 Thin prep Papanicolaou smear with manual screening 21 U/L 15-37 [facility] Work Phone: Thin prep Papanicolaou smear with manual screening 5 5-15 [facility] Work Phone: Thin prep Papanicolaou smear with manual screening 9.8 mg/L NO RANGE EST. [facility] Work Phone: Urine creatinine measurement (mass/volume)on 04-20-2022 Creatinine (U) [Mass/Vol] 126.00 mg/dL NO RANGE EST. [facility] Work Phone: Whole blood hemoglobin A1c/t otal hemoglobin ratio (mass fraction)on 04-20-2022 HbA1c (Bld) [Mass fraction] 6.0 % 3.8-5.6 [facility] Work Phone: Comment on above: Normal < 5.7 % Predi abetic 5.7 - 6.4 % Diabetic >or= 6.5 % Please note range changes. Bacteria identified Cx Nom ( U)Ordered By: Abi Baker on 12-22-2021 [employer] Culture urineOrdered By: Bar Baker on 12-22-2021 Bacteria identified Cx Nom (U) Mixed jen, no uropathogens present. Suggest repeat specimen, if clinically indicated. [employer] Glucose Auto test strip (Bld ) [Mass/Vol]on 12-21-2021 Glucose POC 101 mg/dL 101 - 139 mg/dL [employer] Interpretation and review of laboratory results Normal [facility] [address] POC Urine Auto W/O Microon 0 12-21-2021 Bilirubin UA POC n [employer] Blood UA POC n [employer] Glucose UA POC 1999 [email or web address] Interpretation and review of laboratory results Abnormal [employer] Ketones UA POC Negative Negative [employer] Leukocytes UA POC Negative [employer] Nitrite UA POC Negative Negative [employer] PH UA POC 5.0 [employer] Protein UA POC Negative Positive, Negative [employer] Specific Carter UA POC 1.005 [employer] Urobilinogen UA POC Negative [facility] [email or web address] Vital Signs Date Time Vital Sign Value Performing Clinician Jacinto seth 05-08-2023 14:55-0400 Body height 165.1 cm [facility] 02-26-2023 15:50-0400 Body height 165.1 cm Иван [employer] PA Work Phone: [facility] 02-26-2023 15:50-0400 Body mass index (BMI) [Ratio] 23.13 kg/m2 Иван [employer] PA Work Phone: [facility] 02-26-2023 15:50-0400 Body temperature 97.9 [degF] Иван elicitti PA Work Phone: [facility] 02-26-2023 15:50-0400 Body weight 63.05 kg Иван elicitti PA Work Phone: [email or web address] 02-26-2023 15:50-0400 Diastolic blood pressure 74 mm[Hg] Иван elicitti PA [facility] 02-26-2023 15:50-0400 Heart rate 69 /min Иван [employer] PA Work Phone: [email or web address] 02-26-2023 15:50-0400 Respiratory rate 20 /min Иван elicitti PA Work Phone: [email or web address] 02-26-2023 15:50-0400 SaO2% (BldA) [Mass fraction] 98 % [facility] Work Phone: [facility] 02-26-2023 15:50-0400 Systolic blood pressure 123 mm[Hg] Иван Florencio PA Work Phone: [facility] 05-19-2022 13:31-0400 Body height 165.[address] Micheal Sierra Work Phone: [facility] Work Phone: 05-19-2022 13:31-0400 Body mass index (BMI) [Ratio] 23.4 kg/m2 Dr. Micheal Sierra Work Phone: [facility] Work Phone: 05-19-2022 13:31-0400 Body temperature 97.7 [degF] Dr. Micheal Sierra Work Phone: [facility] Work Phone: 05-19-2022 13:31-0400 Body weight 63.[address] Micheal Sierra Work Phone: [facility] Work Phone: 05-19-2022 13:31-0400 Diastolic blood pressure 76 mm[Hg] Dr. Micheal Sierra Work Phone: [facility] Work Phone: 05-19-2022 13:31-0400 Heart rate 75 /min Dr. Micheal Sierra Work Phone: [facility] Work Phone: 05-19-2022 13:31-0400 Respiratory rate 16 /min Dr. Micheal Sierra Work Phone: [facility] Work Phone: 05-19-2022 13:31-0400 SaO2% (BldA) [Mass fraction] 97 % Dr. Micheal Sierra Work Phone: [facility] Work Phone: 05-19-2022 13:31-0400 Systolic blood pressure 158 mm[Hg] Dr. Micheal Sierra Work Phone: [facility] Work Phone: 12-21-2021 18:34-0500 Body height 165.1 cm Peggy Saucedo NP Work Phone: [email or web address] 12-21-2021 18:34-0500 Body mass index (BMI) [Ratio] 22.47 kg/m2 Peggy Saucedo RVDA MASTER CERTIFIED RV TECHNICIAN Work Phone: [employer] 12-21-2021 18:34-0500 Body temperature 97.9 [degF] Peggy Saucedo RVDA MASTER CERTIFIED RV TECHNICIAN Work Phone: [employer] 12-21-2021 18:34-0500 Body weight 61.24 kg Peggy Saucedo NP Work Phone: [employer] 12-21-2021 18:34-0500 Heart rate 66 /min Peggy Saucedo RVDA MASTER CERTIFIED RV TECHNICIAN Work Phone: [employer] 12-21-2021 18:34-0500 Respiratory rate 14 /min Peggy Saucedo RVDA MASTER CERTIFIED RV TECHNICIAN Work Phone: [employer] 12-21-2021 18:34-0500 SaO2% (BldA) [Mass fraction] 98 % Peggy Saucedo RVDA MASTER CERTIFIED RV TECHNICIAN Work Phone: [email or web address] Encounters Encounter Date Encounter Type Care Provider Facility Start: 05-14-2025 ambulatory Micheal Sierra Facility:[facility] Start: 05-01-2025 End: 05-01-[address] Micheal Sierra MD Work Phone: -Outpatient Breast Imaging Start: 05-01-2025 End: 05-01-2025 Patient encounter procedure Emma Camacho RVDA MASTER CERTIFIED RV TECHNICIANMarianne -Outpatient Breast Imaging Work Phone: Start: 05-01-2025 End: 05-01-2025 ambulatory Micheal Sierra Facility:[facility] Start: 11-03-2024 End: 11-03-2024 ambulatory Micheal Sierra Facility:[facility] Start: 10-24-2024 End: 10-24-2024 ambulatory [facility] Facility:[facility] Start: 10-22-2024 End: 10-22-2024 ambulatory Micheal Sierra Facility:[facility] Start: 09-26-2024 ambulatory Micheal Sierra Facility:[facility] Start: 09-12-2024 End: 09-12-2024 ambulatory Micheal Sierra Facility:[facility] Start: 06-25-2024 End: 06-25-2024 ambulatory Micheal Sierra Facility:[facility] Start: 05-08-2023 End: 05-08-2023 ambulatory [facility] Work Phone: Start: 05-08-2023 End: 05-08-2023 Patient encounter procedure [facility]-Outpatient Bone Densitometry Work Phone: Start: 02-26-2023 End: 02-26-2023 ambulatory MICHEAL Figueroa SIERRA [facility] Start: 02-26-2023 End: 02-26-2023 Office outpatient visit 15 minutes Иван Raoul MOSLEY Work Phone: [facility] Comment on above: Dysuria (Primary Dx) ; Urinary tract infection with hematuria, site unspecified Start: 02-26-2023 End: 02-26-2023 Patient encounter procedure Иван Raoul MOSLEY Work Phone: [facility] Start: 09-18-2022 End: 09-18-2022 ambulatory [facility] Work Phone: Start: 09-18-2022 End: 09-18-2022 Patient encounter procedure [facility] Start: 05-22-2022 End: 05-22-[address] Micheal Sierra Work Phone: [facility]-Radiology, [facility] Start: 05-19-2022 End: 05-19-[address] Micheal Sierra Work Phone: [facility] Start: 04-20-2022 End: 04-20-2022 Patient encounter procedure [facility] Start: 12-21-2021 End: 12-21-2021 Office outpatient new 45 minutes Peggy Saucedo NP Work Phone: [facility] Comment on above: Bladder infection (P rimary Dx) Start: 12-21-2021 End: 12-21-2021 Patient encounter procedure Peggy Saucedo NP Work Phone: [facility] Procedures Date Procedure Procedure Detail Performing Clinician Start: 05-01-2025 Screening mammography Erasmo Sierra MD Work Phone: Start: 05-08-2023 Dual energy X-ray absorptiometry Start: 05-08-2023 Screening mammography Start: 02-26-2023 Urnls dip stick/tabl et rgnt auto w/o microscopy Иван P Siwakoti PA Work Phone: Start: 05-22-[address] Micheal Sierra Work Phone: Start: 12-21-2021 Gluc bld gluc mntr d ev cleared fda spec home use Peggy Saucedo NP Work Phone: Start: 12-21-2021 Urnls dip stick/tabl et rgnt auto w/o microscopy Peggy Saucedo NP Work Phone: Start: 12-21-2021 Culture bacterial quanttative colony count urine Peggy Saucedo NP Work Phone: Plan of Treatment Date Care Activity Detail Author Start: 06-15-2023 Influenza vaccination Influenz a Vaccine (Season Ended) [employer] Start: 2023 Falls Risk Assessment Falls Risk Ass essment [employer] Start: 04-05-2022 DTaP,Tdap,and Td Vaccines (2 - Td or Tdap) DTaP,Tdap,and Td Vaccines (2 - Td or Tdap) [employer] Start: 12-21-2021 Adolescent depressio n screening assessment Depression Screening [employer] Start: 12-21-2021 Hepatitis C screening Hepatitis C Sc reening [employer] [facility] Start: 12-21-2021 HIV screening HIV Screening [employer] Start: 12-21-2021 Medicare Annual Well ness Visit Medicare Annual Wellness Visit [facility] Start: 12-21-2021 Screening for malign ant neoplasm of breast Breast Cancer Screening [facility] Start: 12-21-2021 Screening for malign ant neoplasm of colon Colorectal Cancer Screening: Colonoscopy [facility] Start: 12-21-2021 Screening for osteoporosis Osteoporosis Screening (Bone Density Screening) [facility] Start: 12-21-2021 Social Influencers o f Health Screening Social Influencers of Health Screening [facility] Start: 10-17-2021 COVID-19 Vaccine (4 - Booster for Pfizer series) COVID-19 Vaccine (4 - Booster for Pfizer series) [facility] Start: 12-26-2014 Zoster Vaccines (2 of 3) Zoster Vacc marifer (2 of 3) [facility] Start: 04-05-2013 Pneumococcal Vaccine : 65+ Years (2 - PCV) Pneumococcal Vaccine: 65+ Years (2 - PCV) [facility] Start: 1979 Screening for malign ant neoplasm of cervix Cervical Cancer Screening: Pap Smear [facility] End: 02-27-2024 Bacteria identified in Urine by Culture Culture urine Microbiology Routine Dysuria 1 Occurrences starting 02/26/2023 until 02/27/2024 [facility] Work Phone: Comment on above: 1 Occurrences starti ng 02/26/2023 until 02/27/2024 Bacteria identified in Urine by Culture Culture urine Microbiology Routine Dysuria 02/26/2023 4:14 PM EDT [facility] Immunizations Immunization Date Immunization Notes Care Provider Fa amberly 07-19-2021 influenza virus vaccine, unspecified formulation Иван Mary MOSLEY Work Phone: [facility] 01-13-2021 Covid (Pfizer) [facility] 12-23-2020 Covid (Pfizer) [facility] Payers Date Payer Category Payer Self-pay [id number] 2024 Unknown [id number] 2023 Medicare MEDICARE MEDICAR E PART A & B [id number] 2023-Present [address] [place] [address] Medicare [id number] 2023 Medicare [id number] 2021 Medicaid [employer] [id number] 2021-Present [address] [place] [address] [id number] 2015 Private Health Insurance [facility] [id number] 1960 Unknown [id number] Unknown [id number] Unknown [id number] Unknown [id number] Unknown [id number] Unknown [id number] Unknown [id number] Unknown [id number] Unknown [id number] Unknown [id number] Unknown [id number] Unknown [id number] Social History Date Type Detail Facility Start: 10-10-2021 End: 05-19-2022 Tobacco smoking status [facility] Tobacco smoking consumption unknown [facility] Start: 1960 Sex Assigned At Not on file T [facility] Start: 02-16-2023 End: 02-26-2023 Exposure to SARS-CoV-2 (event) Not sure [facility] Start: 04-07-2016 None [facility] Start: 04-07-2016 Spouse/ Signif icant Other [facility] Start: 02-18-2021 Non-smoker [facility] Start: 1960 Sex Assigned At Female [facility] Start: 02-26-2023 Tobacco smoking status [facility] Never smoked tobacco [facility] Start: 02-26-2023 Tobacco use and exposure Smokeless tobacco non-user [facility] Start: 02-26-2023 Alcohol intake Ex-drinker (finding) [facility] Start: 10-22-2024 Tobacco smoking status AZIS Ex-smoker (finding) [facility] History of Present illness Narrative 02-26-2023 MELANY [...] guarding. Given patient presentation of UTI symptoms, [id number] urine is collected which shows 2000+ of [...] each; Refill: 0 documented in this encounter [facility] History of Present illness Narrative 12-21-2021 Peggy Saucedo, RVDA MASTER CERTIFIED RV TECHNICIAN - 12/21/2021 6:15 PM Hortencia Saucedo, RVDA MASTER CERTIFIED RV TECHNICIAN - 12/21/2021 6:15 PM Hortencia Saucedo, RVDA MASTER CERTIFIED RV TECHNICIAN - 12/21/2021 6:15 PM Hortencia Saucedo, RVDA MASTER CERTIFIED RV TECHNICIAN - 12/21/2021 6:15 PM EST Note Date [...] Where can you learn more? Go to [email or web address] [email or web address] Enter K848 in the search box to learn more about Urinary Tract Infection (UTI) in Women: Care Instructions. Current as of: November 24, 2020 Content Version: 13.1 [employer]. Care instructions adapted under license by your healthcare professional. If you have questions about a medical condition or this instruction, always ask your healthcare professional. [employer] disclaims any warranty or liability for your [...] 61 y.o. female. History provided by: Patient scow captain used: No Review of Systems Constitutional: Positive [...] Exam Procedures Assessment/Plan documented in this encounter [facility] Evaluation note Note Date & Type Note Facility Evaluation note Diagnosis Bladder infection- Primary Unspecified cystitis documented in this encounter [facility] Evaluation note Note Date & Type Note Facility Evaluation note No assessment information availa ble [facility] Work Phone: Evaluation note Note Date & Type Note Facility Evaluation note Diagnosis Onset Date Dysphagia acute GERD (gastroesophageal reflux disease) acute [facility] Work Phone: Evaluation note Note Date & Type Note Facility Evaluation note Diagnosis Dysuria- Primary Urinary tract infection with hematuria, site unspecified documented in this encounter [facility] Instructions Attachments Note Date & Type Note Facility Instructions The following attachments cannot be sent through Care Everywhere.UTI (Urinary Tract Infection): Female (Vietnamese)documented in this encounter [facility] Reason for referral (narrative) Note Date & Type Note Facility Reason for referral (narrative) No reason for referral information available [facility] Work Phone: Advance Directives No Advanced Directives Records FoundDocuments on File Type Date 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 Power of Circus Agent Advance Directive Response Recorded Date/ Time Advance Directives No April 07 11:43pm Living Will Yes February 18, 2021 2: 25pm Power of Circus Agent Yes February 18, 2021 2:25pm Advance Directive Response Recorded Date/ Time Advance Directives No April 07 10:43pm Living Will Yes February 18, 2021 1: 25pm Power of Circus Agent Yes February 18, 2021 1:25pm Advance Directive Response Recorded Date/ Time Advance Directives No April 07 16 11:43pm Family History No Family History Records Found Relationship Condition Age at Onset Recorded Date/T mikey Not Specified Diabetes mellitus Unknown Cardiac disease Unknown Malignant neoplasm Unknown Hypertension Unknown Chief Complaint and Reason for Visit Chief Complaint Upper Scope/Dysphagi a DYSPHAGIA Reason for Visit Dysphagia GERD (gastroesophageal reflux disease) Chief Complaint OSTEOPOROSIS, SCREEN ING Chief Complaint Admit Date SCREENING May 01, 2025 10:2 0am Summary Purpose Additional Source Comments Reason for Visit (unrecogniz ed section and content) Reason Comments UTI burning bodyaches an d odor X 1d. +h/o same issue which was ecoli in sep Reason Comments UTI Burning and frequenc y x 2 days Care Teams (unrecognized sec tion and content) Business Account Manager Relationship Specialty Start Date End Date Micheal Sierra MD [address] [place] [address] [address] [place] [address] PCP - General Family Medicine 12/21/21 Business Account Manager Relationship Specialty Start Date End Date Micheal Sierra MD [address] [place] [address] [address] [place] [address] PCP - General Family Medicine 12/21/21 Team Status: Active Member Role Status Dates Dr. Micheal Sierra MD Family Provider Active Dr. Micheal Sierra MD Primary Care Provider Active Team Status: Inactive Member Role Status Dates Dr. Micheal Sierra MD Primary Care Provide r, Attending Provider, Referring Provider Active Team Status: Active Member Role/Relationship Status Dates Dr. Micheal Sierra MD Primary Care Provider Active Team Status: Inactive Member Role/Relationship Status Dates Dr. Micheal Sierra MD Primary Care Provider Active Start: May 01, 2025 End: May 01, 2025 Emma Camacho NP, RVDA MASTER CERTIFIED RV TECHNICIAN-C Attending Provider Active S tart: May 01, 2025 End: May 01, 2025 Emma Camacho NP, NP-C Referring Provider Active S tart: May 01, 2025 End: May 01, 2025 Goals (unrecognized section and content) Goals may [...] and content) DATE CREATED AUTHOR 03/25/2023 Jeff parra [place] DATE CREATED AUTHOR NELSY PETERS 05/13/2025 [facility] FOR RECORDS PERTAINING TO PATIENTS WHO ARE [...] BE BASED ON THE PRIMARY CLINICAL RECORDS. [employer] [facility]. provides no warranty or guarantee of the accuracy or completeness of information in this document.
== END | disposition home or self-care (01) ==
LOC: OPBI 09:22
PROVIDERS: PCP Family Medicine; Referring Provider Nurse Practitioner Family; Visit Provider Nurse Practitioner Family
DX: R92.8 Other abnormal and inconclusive findings on diagnostic imaging of breast (principal)
CPT/HCPCS: 76642; 77061; 77065; G0279

== ENCOUNTER → 2025-05-21 | Outpatient (CLI) | payer MEDICARE, OTHER, SELFPAY ==
[2025-05-22 08:22] LABS: Color, Urine Yellow (Yellow); Glucose, Dipstick 1000 mg/dl (Normal); Ketone-Dipstick Negative (Negative); Leukocyte Esterase-Dipstick 500 /ul (Negative); Mucous, Urine 0 SEEN /hpf (<or=2+); Nitrite-Dipstick Positive (Negative); Occult Blood-Urine 250 /ul (Negative); Protein-Dipstick 30 mg/dl (Negative); Specific Gravity, Urine 1.020 (1.002-1.030); Urine Bilirubin Dipstick Negative (Negative)
[2025-05-22 09:25] LABS: Calcium Oxalate Crystals Ur 1+ /hpf (<or=2+)
[2025-05-22 09:27] LABS: Red Blood Cells-Urine 0-5 SEEN /hpf (0-5); Squamous Epithelial Cells - UA 0-5 SEEN /hpf (5-10)
== END | disposition home or self-care (01) ==
LOC: LABSPEC 15:02
PROVIDERS: PCP Family Medicine
DX: N39.0 Urinary tract infection, site not specified (principal)
CPT/HCPCS: 81001; 87086; 87088; 87186

== ENCOUNTER 2025-08-27 08:12 | Outpatient (CLI) | payer MEDICARE, OTHER, SELFPAY ==
--- NOTE | 2025-08-27 08:14 | US_ITS ---
PROCEDURE: BREAST LIMITED UNILATERAL 08/27/2025 REASON FOR EXAM: F, Age 65 y/o , CONTUSION Recent fall. Left breast contusion. Bruising to the medial aspect of the left breast. COMPARISON: Prior mammogram dated May 14, 2025.. TECHNIQUE: Procedure Code: USBRSTLIMIT Modality: US Procedure: BREAST LIMITED UNILATERAL FINDINGS: The medial half of the left breast was examined with ultrasound. Multiple cystic collections are seen. The largest measures 1.3 cm x 1.1 cm x 0.5 cm. This is at the 9 o'clock position of the breast at 5 cm from the nipple. Subtle surrounding echogenic tissue most likely representing possible hematoma. US/Breast Limited Unilateral IMPRESSION: Cystic structures in the medial aspect of the left breast as described with the 2 areas of increased echotexture. Resolving hematoma may be the cause. Three-month follow-up recommended. BI-RADS 2: BENIGN RECOMMENDATION: 3 Month Follow-up Reading Location: [facility]
== END 2025-08-27 23:59 | disposition home or self-care (01) ==
LOC: OPUS 08:13
PROVIDERS: PCP Family Medicine
DX: S20.02XA Contusion of left breast, initial encounter (principal); X58.XXXA Exposure to other specified factors, initial encounter; R92.8 Other abnormal and inconclusive findings on diagnostic imaging of breast
CPT/HCPCS: 76642

== ENCOUNTER → 2025-08-27 | Outpatient (CLI) | payer MEDICARE, OTHER, SELFPAY ==
[2025-08-27 11:03] LABS: Creatinine, Urine (random) 182.00 mg/dL (28.00-217.00); Microalbumin,Random Urine 23.7 mg/L (<20 mg/L)
[2025-08-27 13:15] LABS: AST(SGOT) 22 U/L (<=31); Alanine Aminotransfer ALT/SGPT 23 U/L (<=34); Albumin, Serum 4.5 g/dL (3.4-4.8); Alkaline Phosphatase 82 U/L (35-104); Anion Gap 11 (5-15); BUN 14 mg/dL (4-19); BUN/Creat Ratio 18.3 RATIO (10-20); Calcium,Total 9.7 mg/dL (7.6-11.0); Carbon Dioxide 24.4 mmol/L (21.0-32.0); Chloride 103 mmol/L (98-108); Cholesterol 242 mg/dL (<=200); Globulin 2.8 g/dL (2.2-4.2); Glucose 97 mg/dL (70-99); Low Density Lipoprotein Calc. 174 mg/dL; Potassium 4.5 mmol/L (3.3-5.1); Triglycerides 131 mg/dL; Very Low Density Lipoprotein 26 mg/dL (5-40); Vitamin D,25 Hydroxy 20.1 ng/mL (30-100); cholesterol:hdl ratio screen 5.46
[2025-08-28 07:07] LABS: V-Zoster IgG (Immunity) Reactive (Non Reactive)
== END | disposition home or self-care (01) ==
LOC: MFPLAB 09:17
PROVIDERS: PCP Family Medicine; Visit Provider Family Medicine
DX: Z01.84 Encounter for antibody response examination (principal); I10 Essential (primary) hypertension; E78.00 Pure hypercholesterolemia, unspecified; K76.0 Fatty (change of) liver, not elsewhere classified; M81.0 Age-related osteoporosis without current pathological fracture
CPT/HCPCS: 36415; 80053; 80061; 82043; 82306; 82570; 83036; 84443; 86787

== ENCOUNTER → 2025-09-16 | Outpatient (CLI) | payer MEDICARE, OTHER, SELFPAY ==
[2025-09-16 15:35] LABS: Mucous, Urine 0 SEEN /hpf (<or=2+)
[2025-09-16 19:01] LABS: Color, Urine Straw (Yellow); Glucose, Dipstick 1000 mg/dl (Normal); Ketone-Dipstick Negative (Negative); Leukocyte Esterase-Dipstick 25 /ul (Negative); Nitrite-Dipstick Negative (Negative); Occult Blood-Urine 25 /ul (Negative); Protein-Dipstick 15 mg/dl (Negative); Specific Gravity, Urine 1.010 (1.002-1.030); Urine Bilirubin Dipstick Negative (Negative)
[2025-09-16 20:03] LABS: Red Blood Cells-Urine 0-5 SEEN /hpf (0-5); Squamous Epithelial Cells - UA 0-5 SEEN /hpf (5-10)
== END | disposition home or self-care (01) ==
LOC: LABSPEC 15:31
PROVIDERS: PCP Family Medicine; Visit Provider Family Medicine
DX: R30.0 Dysuria (principal)
CPT/HCPCS: 81001; 87086; 87088